=== PATIENT | male | born 1960 | race Caucasian/White ===

== ENCOUNTER 2016-05-27 11:59 | Emergency (ER) | payer BC ==
[~2016-05-27] VITALS: Ht 188 cm; Wt 99.8 kg
[~2016-05-27 11:59] MED LIST: ALPR0.5T7 PO; ASP81TEC PO; ASPI-992 PO; DEXL60CA5 PO; FENT1PAT11 TD; GABA600T2 PO; HYDR-3820 PO; HYDR8TAB PO; LORA1TAB PO; LORA2TAB PO; MAGN1TAB31 PO; NORT25CA PO; OMEP20CA12 PO; PSEU30TA18 PO; ZOLP10TA5 PO; [UNRECOGNIZED DRUG - OTHER] NS
--- OUTSIDE RECORDS SUMMARY | 2016-05-27 12:05 | XMS REPORT | Continuity of Care Document ---
Author Author [facility] Organization [facility] Address Unknown Phone Unavailable Care Team Providers Care Solder Cream Maker Name Role Phone TAVON WINTER MD PCP Insurance Providers Payer Name Policy Number Sub[id number] Catarino Freedman [facility] Self / Same As Patient Advance Directives Directive Response Recorded Date/Time Advance Directives No 01/08/16 4:47pm Health Care Power of Regulator Operator No 01/08/16 4:47pm Organ Donor No 04/29/12 9:53am Resuscitation Status Full Code 01/08/16 4:47pm Problems No problem information available. Medications Current Home Medications Medication Dose Units Route Directions Days/Qty Instructions Start Date Zolpidem Tartrate 10 Mg 10 Mg Oral Bedtime 01/08/16 Omeprazole 20 Mg 20 Mg Oral Twice A Day 01/08/16 Alprazolam 0.5 Mg 0.5 Mg Oral Every 12 Hours as needed for Anxiety 01/08/16 Hydrocodone/Acetaminophen 1 Each 1 Tab Oral Every 3-6 Hours as needed for Pain 01/08/16 Pseudoephedrine Hcl 30 Mg 30 Mg Oral Every 12 Hours as needed for Congestion 01/08/16 Hydromorphone Hcl 8 Mg 8 Mg Oral Every 6 Hours as needed for Severe Pain 01/08/16 Magnesium Carbonate/Al Hydrox 1 Each 2-4 Tab.chew Oral Four Times Daily as needed for Indigestion 01/08/16 Aspirin/Acetaminophen/Caffeine 1 Each 1-2 Tab Oral Every 6 Hours as needed for Pain 01/08/16 Past Home Medications Medication Directions Ordered Status Aspirin 81 Mg Tabec, 81 Mg Oral Daily 04/29/12 Discontinued Dexlansoprazole 60 Mg Cap., 60 Mg Oral Daily 04/29/12 Discontinued Social History Social History Problem Response Recorded Date/Time Alcohol Use Denies Use 01/08/2016 4:39pm Recreational Drug Use No 01/08/2016 4:39pm Recent Foreign Travel No 01/09/2016 10:30am Recent Infectious Disease Exposure No 01/09/2016 10:30am Hospitalization with Isolation Denies 01/09/2016 7:10pm HIV/AIDS No 01/08/2016 4:39pm Smoking Status Never a Smoker 01/08/2016 4:35pm Recent Hopitalizations No 01/08/2016 4:39pm Hospitalization with Isolation Denies 01/09/2016 7:10pm Query Response Start Date Stop Date Smoking Status Never a Smoker Hospital Discharge Instructions Patient Instructions Physician Instructions Prescription: Call to Patients Pharmacy Patient Instructions: Followup in office in one week Resume Normal Activity: Yes Drink 6-8 Glasses of Fluid/Day: Yes Driving Instructions: You May Drive Plan of Care Discharge Date 01/09/16 6:30pm Disposition 01 HOME, SELF-CARE Instructions/Education Provided Chest Pain (DC) Prescriptions See Medication Section Referrals (Unspecified) - Reason(s) for Referral: DR. JARAMILLO IN 4-6 WEEKS CALL FOR APPOINTMENT IN AM 01/10/16 [phone] Care Plan and Goals See Discharge Instructions Section Functional Status Query Response Date Recorded Patient Orientation Person Place Time Situation January 09, 2016 7:10pm Patient Orientation Person Place Time Situation Normal For Age January 09, 2016 7:10pm Comprehension Ability Understands Concepts January 09, 2016 10:30am Allergies, Adverse Reactions, Alerts No known allergies. Immunizations No immunization records. Vital Signs Acute Vital Signs Vital Response Date/Time Temperature (Fahrenheit) 96.8 degrees F (97.6 - 99.5) 01/09/2016 6:30pm Temperature (Calculated Celsius) 36.66951 degrees C (36.4 - 37.5) 01/09/2016 5:50pm Temperature Source Tympanic 01/09/2016 6:30pm Pulse Rate (adult) 74 bpm (60 - 90) 01/09/2016 6:30pm Respiratory Rate 18 bpm (12 - 24) 01/09/2016 6:30pm O2 Sat by Pulse Oximetry 96 % (88 - 100) 01/09/2016 6:30pm Blood Pressure 117/72 mm Hg 01/09/2016 6:30pm Blood Pressure Mean 87 mm Hg 01/09/2016 5:50pm Pain Numeric Pain Scale 3 01/09/2016 6:30pm Height (Feet) 6 feet 01/08/2016 4:31pm Height (Inches) 1.00 inches 01/08/2016 4:31pm Height (Calculated Centimeters) 185.470993 cm 01/08/2016 4:31pm Weight (Pounds) 215 pounds 01/08/2016 4:31pm Weight (Ounces) 8.0 oz 01/08/2016 4:31pm Weight (Calculated Grams) 89895.16 gm 01/08/2016 4:31pm Weight (Calculated Kilograms) 97.173810 kilograms 01/08/2016 4:31pm Calculated BMI 28.4 01/08/2016 4:31pm Results Laboratory Results Test Name Result Units Flags Reference Collection Date/Time Result Date/ Time Comments White Blood Count 6.1 10^3/uL 4.3-11.0 01/08/2016 4:30pm 01/08/2016 4: 57pm Red Blood Count 4.35 10^6/uL 4.35-5.85 01/08/2016 4:30pm 01/08/2016 4: 57pm Hemoglobin 14.4 G/DL 13.3-17.7 01/08/2016 4:30pm 01/08/2016 4:57pm Hematocrit 41 % 40-54 01/08/2016 4:30pm 01/08/2016 4:57pm Mean Corpuscular Volume 94 FL 80-99 01/08/2016 4:30pm 01/08/2016 4: 57pm Mean Corpuscular Hemoglobin 33 PG 25-34 01/08/2016 4:30pm 01/08/2016 4: 57pm Mean Corpuscular Hemoglobin Concent 35 G/DL 32-36 01/08/2016 4:30pm 4:57pm Red Cell Distribution Width 12.0 % 10.0-14.5 01/08/2016 4:30pm 2015 4:57pm Platelet Count 232 10^3/uL 130-400 01/08/2016 4:30pm 01/08/2016 4:57pm Mean Platelet Volume 9.5 FL 7.4-10.4 01/08/2016 4:30pm 01/08/2016 4: 57pm Neutrophils (%) (Auto) 60 % 42-75 01/08/2016 4:30pm 01/08/2016 4:57pm Lymphocytes (%) (Auto) 30 % 12-44 01/08/2016 4:30pm 01/08/2016 4:57pm Monocytes (%) (Auto) 9 % 0-12 01/08/2016 4:30pm 01/08/2016 4:57pm Eosinophils (%) (Auto) 1 % 0-10 01/08/2016 4:30pm 01/08/2016 4:57pm Basophils (%) (Auto) 0 % 0-10 01/08/2016 4:30pm 01/08/2016 4:57pm Neutrophils # (Auto) 3.6 X 10^3 1.8-7.8 01/08/2016 4:30pm 01/08/2016 4: 57pm Lymphocytes # (Auto) 1.8 X 10^3 1.0-4.0 01/08/2016 4:30pm 01/08/2016 4: 57pm Monocytes # (Auto) 0.6 X 10^3 0.0-1.0 01/08/2016 4:30pm 01/08/2016 4: 57pm Eosinophils # (Auto) 0.1 10^3/uL 0.0-0.3 01/08/2016 4:30pm 01/08/2016 4 :57pm Basophils # (Auto) 0.0 10^3/uL 0.0-0.1 01/08/2016 4:30pm 01/08/2016 4: 57pm Sodium Level 135 MMOL/L 135-145 01/08/2016 4:30pm 01/08/2016 5:18pm Potassium Level 3.7 MMOL/L 3.6-5.0 01/08/2016 4:30pm 01/08/2016 5:18pm Chloride Level 104 MMOL/L 98-107 01/08/2016 4:30pm 01/08/2016 5:18pm Carbon Dioxide Level 21 MMOL/L 21-32 01/08/2016 4:30pm 01/08/2016 5: 18pm Anion Gap 10 MMOL/L 5-14 01/08/2016 4:30pm 01/08/2016 5:18pm Blood Urea Nitrogen 9 MG/DL 7-18 01/08/2016 4:30pm 01/08/2016 5:18pm Creatinine 0.97 MG/DL 0.60-1.30 01/08/2016 4:30pm 01/08/2016 5:18pm BUN/Creatinine Ratio 9 01/08/2016 4:30pm 01/08/2016 5:18pm Estimat Glomerular Filtration Rate > 60 01/08/2016 4:30pm 2015 5:18pm GFR INTERPRETIVE DATA UNITS FOR ESTIMATED GFR (eGFR): mL/min/1.73 M2 REFERENCE RANGE FOR ESTIMATED GFR (eGFR) eGFR NORMAL eGFR >60 MODERATELY DECREASED eGFR 30-59 SEVERLY DECREASED eGFR 15-29 KIDNEY FAILURE <15 (OR DIALYSIS) Glucose Level 90 MG/DL 70-105 01/08/2016 4:30pm 01/08/2016 5:18pm Calcium Level 9.1 MG/DL 8.5-10.1 01/08/2016 4:30pm 01/08/2016 5:18pm Total Bilirubin 0.8 MG/DL 0.1-1.0 01/08/2016 4:30pm 01/08/2016 5:18pm Alkaline Phosphatase 49 U/L 40-136 01/08/2016 4:30pm 01/08/2016 5:18pm Aspartate Amino Transf (AST/SGOT) 22 U/L 5-34 01/08/2016 4:30pm 2015 5:18pm Alanine Aminotransferase (ALT/SGPT) 21 U/L 0-55 01/08/2016 4:30pm 01/07 5:18pm Total Protein 6.5 G/DL 6.4-8.2 01/08/2016 4:30pm 01/08/2016 5:18pm Albumin 4.1 G/DL 3.2-4.5 01/08/2016 4:30pm 01/08/2016 5:18pm Procedures Procedure Status Date Provider(s) Tracing only of electrocardiogram Completed 01/08/16 TAVON WINTER MD Color Doppler echocardiography Active 01/08/16 KARY JARAMILLO MD FACP FAC CCDS Encounters Encounter Location Arrival/Admit Date Discharge/Depart Date Attending Provider Discharged Inpatient (obs) [facility] 01/08/16 2:34pm 6:30pm TAVON WINTER MD
--- NOTE | 2016-05-27 12:32 | ED Psychosocial ---
General Chief Complaint: Psych/Social Disorder Stated Complaint: CHEST PAIN Nursing Triage Note: Pt c/o anxiety increasing over past couple weeks. Pt also c/o chest pain but reports it is no different than usual. Pt reports PCP has recently taken him off his pain medications and he thinks he may be having a withdrawal. Pt states he has appt w/ PCP tomorrow but states anxiety is too bad and he couldn't wait. Source: patient, other (friend) Exam Limitations: no limitations History of Present Illness Time seen by provider: 12:32 Initial Comments 55-year-old male patient presents to the emergency department with complaints of anxiety increasing over the last couple weeks. Patient has an appointment scheduled with Dr. son tomorrow as an outpatient, but states his anxiety was worse today and he couldn't wait until tomorrow. Patient does report chronic chest pain for several years has had an extensive workup at [facility] in 2009 which was negative. Patient recently underwent stress test which was negative and echocardiogram without abnormality. EGD in [address] Kimball showed positive Charles's esophagus.patient reports 2 weeks ago his been no patch was decreased from 100 g to 75 g and thinks this is causing increased anxiety. Also was seen in the emergency department on 05/12 for confusion and sedation thought to be related to his Ativan and fentanyl. Patient states he is not taking hydrocodone for approximately one month.patient denies suicidal or homicidal ideation. Timing/Duration: getting worse, other (chronic symptoms with worsening over the last 2 weeks) Associated Symptoms: anxiety, impaired concentration Allergies and Home Medications Allergies Coded Allergies: No Known Drug Allergies (Verified , 05/14/07) Home Medications 2-3 SPRAYS NS Q4H PRN PRN CONGESTION (Reported) Aspirin/Acetaminophen/Caffeine 1 Each Tablet 1 TAB PO BID PRN PRN PAIN (Reported ) Fentanyl 1 Each Patch.td72 100 MCG TD Q72H (Reported) Gabapentin 600 Mg Tablet 600 MG PO TID (Reported) Hydrocodone/Acetaminophen 1 Each Tablet 1 TAB PO EVERY 3-6 HOURS PRN PRN PAIN ( Reported) Hydroxyzine Pamoate 25 Mg Capsule #20 25 MG PO Q6H PRN PRN ANXIETY Prescribed by: OLIVER LAMAR on 05/27/16 1513 Lorazepam 2 Mg Tablet 2 MG PO Q6H PRN PRN ANXIETY (Reported) Nortriptyline HCl 25 Mg Capsule 25 MG PO HS (Reported) Omeprazole 20 Mg Capsule.dr 20 MG PO BID (Reported) Pseudoephedrine HCl 30 Mg Tablet 30-60 MG PO BID (Reported) Constitutional: No chills, No dizziness, No fever, No malaise, No weakness EENTM: no symptoms reported Respiratory: No cough, No dyspnea on exertion, No hemoptysis, No phlegm, No short of breath, No stridor, No wheezing Cardiovascular: see HPI chest pain (chronic chest pain. Feels similar to usual pain.)No edema, No palpitations, No syncope Gastrointestinal: No abdominal pain, No constipation, No diarrhea, No nausea, No vomiting Genitourinary: no symptoms reported Musculoskeletal: see HPINo back pain, No joint pain, No neck pain, other ( chronic chest wall pain) Skin: no symptoms reported Psychiatric/Neurological: See HPI AnxietyDenies Headache, Denies Numbness, Denies Paresthesia, Denies Seizure, Denies Tingling, Denies Weakness All Other Systems Reviewed Negative Unless Noted: Yes (Negative excepted noted.) Past Xiagtmj-Flornx-Lhezyg Hx Patient Social History Recent Foreign Travel: No Contact w/Someone Who Travel: No Recent Infectious Disease Expo: No Recent Hopitalizations: Yes Immunizations Up To Date Tetanus Booster (TDap): More than 5yrs Date of Influenza Vaccine: Feb 28, 2012 Seasonal Allergies Seasonal Allergies: No Surgeries HX Surgeries: Yes Surgeries: Abdominal Respiratory Hx Respiratory Disorders: No Cardiovascular Hx Cardiac Disorders: No Neurological Hx Neurological Disorders: Yes Neurological Disorders: Headaches /Migraines Reproductive System Hx Reproductive Disorders: No HIV/AIDS: No Genitourinary Hx Genitourinary Disorders: No Gastrointestinal Hx Gastrointestinal Disorders: Yes Gastrointestinal Disorders: Gastroesophageal Reflux Musculoskeletal Hx Musculoskeletal Disorders: No Musculoskeletal Disorders: Chronic Back Pain Endocrine Hx Endocrine Disorders: No HEENT HX ENT Disorders: No Loss of Vision: Denies Hearing Impairment: Denies Cancer Hx Cancer: No Psychosocial Hx Psychiatric Problems: No Behavioral Health Disorders: Anxiety Integumentary HX Skin/Integumentary Disorder: No Blood Transfusions Hx Blood Disorders: No Adverse Reaction to a Blood Tr: No Reviewed Nursing Assessment Reviewed/Agree w Nursing PMH: Yes Family Medical History Significant Family History: No Pertinent Family Hx Family Medial History: Arthritis 19 FATHER Cancer of mouth Congenital heart disease 19 FATHER Myocardial infarction 19 FATHER Neoplasm 19 FATHER 19 MOTHER Parkinson's disease 19 FATHER Psychosocial problem 19 FATHER 19 MOTHER Physical Exam Vital Signs Vital Sign - Last 12Hours 05/27/16 05/27/16 12:06 15:29 Temp 98.1 Pulse 93 Resp 28 B/P 133/106 Pulse Ox 98 O2 Delivery Room Air Capillary Refill : Less Than 3 Seconds General Appearance: WD/WN mild distress (patient appears anxious.) HEENT: PERRL/EOMI normal ENT inspection TMs normal pharynx normal Neck: supple normal inspection Respiratory: lungs clear normal breath sounds no respiratory distress Cardiovascular: normal peripheral pulses regular rate, rhythm no edema no murmur Peripheral Pulses: 2+ Dorsalis Pedis (R), 2+ Left Dors-Pedis (L), 2+ Radial Pulses (R), 2+ Radial Pulses (L) Gastrointestinal: normal bowel sounds non tender softNo distended Extremities: no pedal edema no calf tenderness normal capillary refill Neurologic/Psychiatric: guncotton packer II-XII nml as tested no motor/sensory deficits alert normal mood/affect oriented x 3 Appearance/Memory: appropriate appearance appropriate insight neat no memory impairment Behavior/Eye Contact: cooperative avoids eye contact increased rate of speech compulsive Thoughts/Hallucinations: normal thought pattern no apparent hallucination Skin: normal color warm/dry Progress/Results/Core Measures Results/Orders Lab Results My Orders Vital Signs/I&O Blood Pressure Mean: 115 ECG Initial ECG Impression Date: May 27, 2016 Initial ECG Impression Time: 12:11 Initial ECG Rate: 97 Initial ECG Rhythm: Normal Sinus Initial ECG Comparisson: Unchanged Comment Sinus rhythm. No STEMI or arrhythmia noted. ECG reviewed and discussed with Dr. Carmelo Barragan MD. Departure Communication Progress Notes Laboratory and diagnostic findings discussed with the patient. Patient states he has an appointment tomorrow with Dr. Son. Patient advised to keep this appointment and discuss findings from today's visit with him. All return precautions were discussed with the patient as described in the discharge instructions of this report. Patient voices understanding and agrees with the treatment plan. Patient case discussed with Dr. Carmelo Barragan, he agrees with the plan of care. Impression Impression: Primary Impression: Anxiety Additional Impression: Chronic chest pain Disposition: HOME, SELF-CARE Condition: Improved Departure-Patient Inst. Decision time for Depature: 14:37 Referrals: TAVON SON MD (PCP/Family) Primary Care Physician Patient Instructions: Anxiety, Adult (DC), MANAGING YOUR CHRONIC PAIN Add. Discharge Instructions: All discharge instructions reviewed with patient and/or family. Voiced understanding. Continue usual home medications. follow-up with Dr. Son tomorrow as previously scheduled for recheck. Return to the emergency department for worsened pain, headache, dizziness, changes in vision, changes in behavior, numbness, weakness, chest pain, or any other concerns. Scripts Hydroxyzine Pamoate (Vistaril)25 Mg [id number] Mg PO Q6H PRN ANXIETY #20 CAP Ref 0 Prov:OLIVER LAMAR 05/27/16 OLIVER LAMAR May 27, 2016 12:32 Urine Protein NEGATIVE NEGATIVE Urine RBC NONE /HPF Urine RBC (Auto) NEGATIVE NEGATIVE Urine Specific Cle[place] 1.005 L 1.016-1.022 Urine Squamous Epithelial Cells /HPF Urine Urobilinogen NORMAL NORMAL MG/DL Urine WBC RARE /HPF Urine pH 7 5-9 Acetaminophen Level < 10 L 10-30 UG/ML Alanine Aminotransferase (ALT/SGPT) 38 0-55 U/L Albumin 4.7 H 3.2-4.5 G/DL Alkaline Phosphatase 58 40-136 U/L Anion Gap 10 5-14 MMOL/L Aspartate Amino Transf (AST/SGOT) 34 5-34 U/L BUN/Creatinine Ratio 9 Basophils # (Auto) 0.0 0.0-0.1 10^3/uL Basophils (%) (Auto) 0 0-10 % Blood Urea Nitrogen 9 7-18 MG/DL Calcium Level 9.9 8.5-10.1 MG/DL Carbon Dioxide Level 23 21-32 MMOL/L Chloride Level 100 98-107 MMOL/L Creatinine 1.04 0.60-1.30 MG/DL Eosinophils # (Auto) 0.1 0.0-0.3 10^3/uL Eosinophils (%) (Auto) 1 0-10 % Estimat Glomerular Filtration Rate > 60 Glucose Level 104 70-105 MG/DL Hematocrit 48 40-54 % Hemoglobin 16.6 13.3-17.7 G/DL Lymphocytes # (Auto) 1.3 1.0-4.0 X 10^3 Lymphocytes (%) (Auto) 16 12-44 % Mean Corpuscular Hemoglobin 32 25-34 PG Mean Corpuscular Hemoglobin Concent 34 32-36 G/DL Mean Corpuscular Volume 94 80-99 FL Mean Platelet Volume 9.7 7.4-10.4 FL Monocytes # (Auto) 0.5 0.0-1.0 X 10^3 Monocytes (%) (Auto) 6 0-12 % Neutrophils # (Auto) 5.8 1.8-7.8 X 10^3 Neutrophils (%) (Auto) 76 H 42-75 % Platelet Count 251 130-400 10^3/uL Potassium Level 4.4 3.6-5.0 MMOL/L Red Blood Count 5.13 4.35-5.85 10^6/uL Red Cell Distribution Width 11.9 10.0-14.5 % Salicylates Level < 5.0 L 5.0-20.0 MG/DL Serum Alcohol < 10 <10 MG/DL Sodium Level 133 L 135-145 MMOL/L TSH Powell Testing 0.99 0.35-4.94 UIU/ML Total Bilirubin 1.0 0.1-1.0 MG/DL Total Protein 7.9 6.4-8.2 G/DL Troponin I < 0.30 <0.30 NG/ML White Blood Count 7.7 4.3-11.0 10^3/uL My Orders Orders-OLIVER LAMAR Troponin I (05/27/16 12:20) Ua Culture If Indicated (05/27/16 12:20) Cbc With Automated Diff (05/27/16 12:20) Comprehensive Metabolic Panel (05/27/16 12:20) Alcohol (05/27/16 12:20) Drug Screen Stat (Urine) (05/27/16 12:20) Acetaminophen (05/27/16 12:20) Salicylate (05/27/16 12:20) Ekg Tracing (05/27/16 12:20) Thyroid Analyzer (05/27/16 12:20) Monitor-Rhythm Ecg Trace Only (05/27/16 12:20) Vital Signs/I&O Vital Sign - Last 12Hours 05/27/16 12:06 Pulse 93 Resp 28 B/P 133/106 Pulse Ox 98 O2 Delivery Room Air Blood Pressure Mean: 115 Departure Impression Impression: Primary Impression: Anxiety Additional Impression: Chronic chest pain Disposition: 01 HOME, SELF-CARE Condition: Improved Departure-Patient Inst. Decision time for Depature: 14:37 Referrals: TAVON SON MD (PCP/Family) Primary Care Physician Patient Instructions: Anxiety, Adult (DC), MANAGING YOUR CHRONIC PAIN Add. Discharge Instructions: All discharge instructions reviewed with patient and/or family. Voiced understanding. Continue usual home medications. follow-up with Dr. Son tomorrow as previously scheduled for recheck. Return to the emergency department for worsened pain, headache, dizziness, changes in vision, changes in behavior, numbness, weakness, chest pain, or any other concerns. Scripts Hydroxyzine Pamoate (Vistaril)25 Mg [id number] Mg PO Q6H PRN ANXIETY #20 CAP Ref 0 Prov:OLIVER LAMAR 05/27/16 OLIVER LAMAR May 27, 2016 12:32
[2016-05-27 13:33] LABS: BASOPHILS % (AUTO) 0 % (0-10); EOSINOPHILS # (AUTO) 0.1 10^3/uL (0.0-0.3); EOSINOPHILS % (AUTO) 1 % (0-10); LYMPHOCYTES # (AUTO) 1.3 X 10^3 (1.0-4.0); LYMPHOCYTES % (AUTO) 16 % (12-44); MEAN CORPUSCULAR HEMOGLOBIN 32 PG (25-34); MEAN CORPUSCULAR HGB CONC 34 G/DL (32-36); MEAN CORPUSCULAR VOLUME 94 FL (80-99); MEAN PLATELET VOLUME 9.7 FL (7.4-10.4); MONOCYTES # (AUTO) 0.5 X 10^3 (0.0-1.0); MONOCYTES % (AUTO) 6 % (0-12); NEUTROPHILS # (AUTO) 5.8 X 10^3 (1.8-7.8); NEUTROPHILS % (AUTO) 76 % (42-75); PLATELET COUNT 251 10^3/uL (130-400); RED BLOOD COUNT 5.13 10^6/uL (4.35-5.85); RED CELL DISTRIBUTION WIDTH 11.9 % (10.0-14.5); WHITE BLOOD COUNT 7.7 10^3/uL (4.3-11.0)
[2016-05-27 13:33] LABS: BILIRUBIN,URINE NEGATIVE (NEGATIVE); KETONES,URINE 1+ (NEGATIVE); LEUKOCYTE ESTERASE ,URINE NEGATIVE (NEGATIVE); NITRITE,URINE NEGATIVE (NEGATIVE); PH,URINE 7 (5-9); PROTEIN,URINE NEGATIVE (NEGATIVE); UROBILINOGEN,URINE NORMAL (NORMAL)
[2016-05-27 13:42] LABS: WBC,URINE RARE /HPF
[2016-05-27 13:58] LABS: ACETAMINOPHEN < 10 UG/ML (10-30); ALANINE AMINOTRANSFERASE 38 U/L (0-55); ALBUMIN 4.7 G/DL (3.2-4.5); ALCOHOL < 10 MG/DL (<10); ANION GAP 10 MMOL/L (5-14); ASPARTATE AMINO TRANSFERASE 34 U/L (5-34); BLOOD UREA NITROGEN 9 MG/DL (7-18); BUN/CREATININE RATIO 9; CALCIUM 9.9 MG/DL (8.5-10.1); CARBON DIOXIDE 23 MMOL/L (21-32); CHLORIDE 100 MMOL/L (98-107); CREATININE SERUM 1.04 MG/DL (0.60-1.30); GFR ESTIMATED > 60; GLUCOSE 104 MG/DL (70-105); POTASSIUM 4.4 MMOL/L (3.6-5.0); SALICYLATE < 5.0 MG/DL (5.0-20.0); SODIUM 133 MMOL/L (135-145); TOTAL PROTEIN 7.9 G/DL (6.4-8.2)
[2016-05-27 14:06] LABS: TROPONIN I < 0.30 NG/ML (<0.30)
[2016-05-27] MEDS ORDERED: HYDR25CA PO ×2 (14:42→15:13)
[2016-05-27 15:29] VITALS: BP 116/92
[2016-09-05] MEDS ORDERED: HYDR-3731 PO (14:06)
== END 2016-05-27 15:29 | disposition home or self-care (01) ==
LOC: EDUNIT# 11:59 → ER 12:02
DX: R07.89 Other chest pain (principal); G89.29 Other chronic pain; F41.9 Anxiety disorder, unspecified; Z79.82 Long term (current) use of aspirin; Z79.899 Other long term (current) drug therapy
CPT/HCPCS: 36415; 80053; 80306; 80320; 80329; 81000; 84443; 84484; 85025; 93005; 93041

== ENCOUNTER 2016-09-03 05:40 | Outpatient (CLI) | payer BC ==
[~2016-09-03] VITALS: Ht 188 cm; Wt 103.2 kg
[~2016-09-03 05:40] MED LIST changes: +HYDR25CA PO
[2016-09-03] MEDS ORDERED: TRAM50TA2 PO (14:10)
[2016-09-03] MEDS ORDERED: BACL20TA PO (14:10)
[2016-09-03] MEDS ORDERED: TRAZ-28 PO (14:10)
[2016-09-03] MEDS ORDERED: D50KC PO (14:10)
[2016-09-03] MEDS ORDERED: MULT-517 PO (14:10)
[2016-09-03] MEDS ORDERED: KETO10TA PO (14:10)
[2016-09-03 14:17] VITALS: BP 121/81
[2016-09-05] MEDS ORDERED: HYDR-3731 PO (14:06)
== END 2016-09-03 14:33 | disposition home or self-care (01) ==
LOC: PREOP 05:40
PROVIDERS: ATTEND Surgery Pediatric Surgery
DX: Z01.818 Encounter for other preprocedural examination (principal); Z11.2 Encounter for screening for other bacterial diseases; K82.8 Other specified diseases of gallbladder
CPT/HCPCS: 87081

== ENCOUNTER 2016-09-05 10:45 | Day surgery (SDC) | payer BC ==
[~2016-09-05] VITALS: Ht 188 cm; Wt 103.2 kg
[~2016-09-05 10:45] MED LIST changes: +BACL20TA PO; +D50KC PO; +KETO10TA PO; +MULT-517 PO; +TRAM50TA2 PO; +TRAZ-28 PO
[2016-09-05] MEDS ORDERED: ceFAZolin 1 GM/NS 50 ML IVPB IV ONE ×2 (11:00)
[2016-09-05 11:08] VITALS: BP 122/80
[2016-09-05] MEDS ORDERED: ROCURONIUM 50 MG/5 ML (ZEMURON) VIAL IV ONE (11:27)
[2016-09-05] MEDS ORDERED: LIDOCAINE PF 2% 10 ML (XYLOCAINE) AMP ONE (11:27)
[2016-09-05] MEDS ORDERED: ONDANSETRON 4 MG/2 ML (SDV) Z0FRAN ONE (11:27)
[2016-09-05] MEDS ORDERED: proPOfol 200 MG/20 ML (DIPRIVAN) VIAL IV ONE ×2 (11:27→13:57)
[2016-09-05] MEDS ORDERED: LACTATED RINGERS 1,000 ML IV ONE ×2 (11:27→13:57)
[2016-09-05] MEDS ORDERED: fentaNYL INJECTION 250 MCG/5 ML AMP ONE (11:27)
[2016-09-05] MEDS ORDERED: SEVOFLURANE (ULTANE) 15 ML INHAL SOLN ONE (11:27)
[2016-09-05] MEDS ORDERED: DEXAMETHASONE PF 10 MG/ML (DECADRON) VIAL ONE (11:27)
[2016-09-05] MEDS ORDERED: MIDAZOLAM 2 MG/2 ML (VERSED) VIAL ONE (11:27)
[2016-09-05] MEDS ORDERED: FAMOTIDINE 20MG/2ML IV (PEPCID) IV ONE (11:30)
[2016-09-05] MEDS ORDERED: fentaNYL INJECTION 100 MCG/2 ML AMP IV ONE (11:30)
[2016-09-05] MEDS: LACTATED RINGERS 1,000 ML IV PRN ×2 (11:32→13:20)
[2016-09-05] MEDS ORDERED: BUP/EPI 0.5% 1:200,000 (SENSORCAINE) 30 ML VIAL ONE (12:13)
--- NOTE | 2016-09-05 12:19 | Progress Note-Pre Operative ---
Pre-Operative Progress Note H&P Reviewed The H&P was reviewed, patient examined and no changes noted. Date H&P Reviewed: Sep 05, 2016 Time H&P Reviewed: 12:00 Pre-Operative Diagnosis: chronic calculous cholecystitis JASKARAN MORENO MD Sep 05, 2016 12:19 pm
[2016-09-05] MEDS ORDERED: ONDANSETRON 4 MG/2 ML (SDV) Z0FRAN IVP PRN (12:30)
[2016-09-05] MEDS ORDERED: ACETAMINOPHEN 325 MG TABLET/CAPLET (TYLENOL) PO PRN (12:30)
[2016-09-05] MEDS ORDERED: HYDROcodone/APAP 5 MG/325 MG (LORTAB) TAB PO ONE (12:30)
[2016-09-05] MEDS ORDERED: morphine INJ 10 MG/ML 1ML (SYR OR VIAL) IVP PRN (12:30)
[2016-09-05] MEDS ORDERED: GLYCOPYRROLATE 0.2 MG/ML (ROBINUL) 2 ML VIAL ONE (13:57)
[2016-09-05] MEDS ORDERED: KETOROLAC 30 MG/ML VIAL ONE (13:57)
[2016-09-05] MEDS ORDERED: NEOSTIGMINE (BLOXIVERZ ) 1 MG/1ML 10 ML VIAL ONE (13:57)
--- NOTE | 2016-09-05 14:05 | Progress Note-Post Operative ---
Post-Operative Progess Note Surgeon (s)/[employer] Launch Commander (s) Surgeon JASKARAN MORENO MD [employer] Launch Commander: carlota sandhu [employer] Pre-Operative Diagnosis chronic calculous cholecystitis Post-Operative Diagnosis same Post-Op Procedure Note Date of Procedure: Sep 05, 2016 Name of Procedure Performed: laparoscopic cholecystectomy Description of the Procedure: laparoscopic cholecystectomy Findings of the Procedure . Anesthesia Type GET Estimated blood loss (mL): minimal Specimen(s) collected/removed gallbladder JASKARAN MORENO MD Sep 05, 2016 2:05 pm
[2016-09-05] MEDS ORDERED: HYDR-3731 PO (14:06)
--- NOTE | 2016-09-05 14:07 | Discharge Inst-Surgical ---
D/C Lap Instructions-TIFFANIE New, Converted, or Re-Newed RX: RX on Chart Follow Up Appt in 2 weeks Activity as tolerated No driving for 24 hours No driving while on pain medications Incentive Spirometry use every 2 hours while awake Regular Diet Symptoms to Report: Fever over 101 degree F, Nausea/Vomiting Infection Signs and Symptoms to report: Increased redness, Foul odor of wound, Increased drainage Bathing instructions: May shower Operative Area Clean/Dry; Keep incision clean/dry If any problems/questions: Contact your physician or go to Emergency Room JASKARAN MORENO MD Sep 05, 2016 2:07 pm
--- NOTE | 2016-09-05 14:56 | OPERATIVE REPORT ---
DATE OF SERVICE: 09/05/2016 PREOPERATIVE DIAGNOSIS: Symptomatic chronic acalculous cholecystitis. POSTOPERATIVE DIAGNOSIS: Symptomatic chronic acalculous cholecystitis. PROCEDURE: Laparoscopic cholecystectomy. SURGEON: Dr. Moreno. OIL PROGRAM COMPLIANCE SPECIALIST: Zeke Larson APRN. ANESTHESIA: General endotracheal. ESTIMATED BLOOD LOSS: Minimal. FINDINGS: Chronically inflamed gallbladder with omental adhesions to the gallbladder. DISPOSITION: Patient tolerated the procedure well. The patient is a 55-year-old male with intermittent episodes of pain in the right upper abdominal quadrant and epigastric region with radiation towards the back for the past 7 years. He reports that this was initially mild; however, this has become much more significant and severe in the past 2 years. The pain is in the right upper abdominal quadrant and is described as sharp and crampy with radiation towards the back and would occur after eating meals; however, would also occur while fasting. He has a history of gastroesophageal reflux disease and underwent a Yash fundoplication in 2002. He does not report any symptoms of reflux or regurgitation. He had an EGD done in fall which showed an intact previous wrap as well as no recurrent hiatal hernia and biopsies were negative for Charles esophagus and for H. Pylori. He continued to have pain and did have some withdrawal issues from the pain medication and is currently not on narcotic pain medications. An ultrasound was performed, which did show gallbladder wall thickening consistent with a chronic acalculous cholecystitis. The patient was brought to the operating room and placed supine on the table. After adequate IV pain anesthetic, medications and general endotracheal intubation, the abdomen was prepped and draped in standard surgical fashion. A 0.5% Marcaine with epinephrine was then used to anesthetize the overlying skin in the left upper abdominal quadrant and a small transverse incision was made using a 15 blade. An oil-soaked suture was applied to the medial aspect of the incision for retraction of Veress needle inserted. With a low opening pressure of 0 mmHg, the abdomen was insufflated to 15 mmHg pressure. The Veress needle was removed and a 5 mm trocar was placed followed by a 5 mm 45-degree angle laparoscope, visualizing the peritoneal cavity. Full quadrant abdominal x-rays were performed. There was chronic gallbladder inflammation with omental adhesions to the gallbladder consistent with a chronic acalculous cholecystitis. What was visualized of the liver, omentum, small bowel, stomach appeared normal. Under direct visualization, we then proceeded to place a supraumbilical 10 mm port after the skin and peritoneum were anesthetized using 0.5% Marcaine with epinephrine. Transverse skin incision was made using a 15 blade. In a similar manner, a right upper abdominal quadrant 5 mm port was placed. The patient was then placed in the Trendelenburg position as well as plane right side up, left side down. The fundus of the gallbladder was then retracted anteriorly and superiorly. The hepatoduodenal ligament was then opened using electrocautery and hook instrument as well as blunt dissection. The entire triangle of Calot was dissected, including the critical view of safety, identifying and dissecting up the cystic duct and artery, as well as the liver behind the proximal portion of the gallbladder. A timeout was then taken. The cystic duct and artery were clipped proximally, distally and cut with EndoShears. The gallbladder was then dissected off the liver bed using electrocautery and hook instrument with visualization of good hemostasis. The gallbladder was removed through the 10 mm port using an EndoCatch bag. The 10 mm port site fascia and peritoneum were then closed under direct visualization using a Anthony-Daniel device and an 0 Vicryl suture. The abdomen was desufflated and remaining ports removed. Incisions were closed using 4-0 Monocryl running subcuticular sutures. Wounds were then cleaned and covered with Dermabond. The patient tolerated the procedure well. We will start IV and oral pain medications as well as a clear liquid diet. Once he is tolerating clear liquids, able to take oral pain medications and ambulating well, we will discharge him home. Job ID: [id number] DocumentID: [id number] Dictated Date: 09/05/2016 13:56:24 Lathing Supervisor Date: 09/05/2016 14:55:32 Dictated By: JASKARAN MORENO MD [facility]
[2016-09-05 15:00] VITALS: BP 119/69
[2016-09-05] MEDS ORDERED: HYDROcodone/APAP 5 MG/325 MG (LORTAB) TAB ONE ×2 (15:01→15:02)
[2016-09-05 15:30] VITALS: BP 119/67
[2016-09-05 16:00] VITALS: BP 120/73
[2016-09-05 16:25] VITALS: BP 120/73
== END 2016-09-05 16:25 | disposition home or self-care (01) ==
LOC: SDC 10:45
PROVIDERS: ATTEND Surgery Pediatric Surgery
DX: K81.1 Chronic cholecystitis (principal)
CPT/HCPCS: 88304; 94664

== ENCOUNTER → 2020-11-21 | Outpatient (CLI) | payer BC ==
[~2020-11-21] MED LIST changes: +ACHYD1T PO; -D50KC PO; +ERGO50006 PO; -GABA600T2 PO; +GBPN600T PO; +HYDR-3731 PO; -HYDR-3820 PO; -OMEP20CA12 PO; +OMEP20CA18 PO; -TRAM50TA2 PO; -TRAZ-28 PO; +TRM50T PO; +TRZ50T PO
--- NOTE | 2020-11-21 13:03 | Diagnostic Imaging Report ---
PROCEDURE: CT abdomen and pelvis without contrast. TECHNIQUE: Multiple contiguous axial images were obtained through the abdomen and pelvis without the use of intravenous contrast. Auto Exposure Controls were utilized during the CT exam to meet ALARA standards for radiation dose reduction. INDICATION: Microhematuria. Correlation is made to prior CT from 09/30/2012. Imaging through the lung bases demonstrates some linear atelectasis or scarring in the right lower lobe. No discrete liver mass is identified. The liver does show somewhat lobulated contour, raising question of cirrhosis, with a prominent caudate lobe. There appear to be some potential varices in the anterior abdomen. Trace fluid in the right paracolic gutter is noted. Gallbladder is surgically absent. There is no biliary ductal dilatation. The pancreas and spleen are unremarkable. There is a small accessory spleen. No adrenal mass is identified. No renal calculi or hydronephrosis is identified. Aorta is nonaneurysmal. No definite ureteral or bladder calculi are seen. Bladder is completely decompressed. Prostate is unremarkable. IMPRESSION: 1. No evidence of urinary tract calculi or obstruction. 2. Findings suspicious for cirrhosis and perhaps mild portal hypertension. There are some varices in the anterior abdomen as well as trace ascites. No other significant abnormality is detected. Dictated by: Dictated on workstation # [id number]
== END ==
LOC: RAD 12:45
PROVIDERS: ATTEND Urology
DX: I86.4 Gastric varices (principal); R31.29 Other microscopic hematuria
CPT/HCPCS: 74176

== ENCOUNTER 2020-12-14 14:04 | Inpatient (IN) | payer BC ==
[~2020-12-14] VITALS: Ht 180 cm; Wt 120.7 kg
[2020-12-14 14:19] LABS: BASOPHILS # (AUTO) 0.1 10^3/uL (0.0-0.1); BASOPHILS % (AUTO) 1 % (0-10); EOSINOPHILS # (AUTO) 0.4 10^3/uL (0.0-0.3); EOSINOPHILS % (AUTO) 3 % (0-10); HEMATOCRIT 35 % (40-54); HEMOGLOBIN 11.7 g/dL (13.3-17.7); LYMPHOCYTES # (AUTO) 3.8 10^3/uL (1.0-4.0); LYMPHOCYTES % (AUTO) 28 % (12-44); MEAN CORPUSCULAR HEMOGLOBIN 33 pg (25-34); MEAN CORPUSCULAR HGB CONC 33 g/dL (32-36); MEAN CORPUSCULAR VOLUME 99 fL (80-99); MEAN PLATELET VOLUME 10.8 fL (9.0-12.2); MONOCYTES # (AUTO) 0.8 10^3/uL (0.0-1.0); MONOCYTES % (AUTO) 6 % (0-12); NEUTROPHILS # (AUTO) 8.7 10^3/uL (1.8-7.8); NEUTROPHILS % (AUTO) 63 % (42-75); PLATELET COUNT 236 10^3/uL (130-400); WHITE BLOOD COUNT 13.7 10^3/uL (4.3-11.0)
[2020-12-14 14:33] LABS: FIBRIN DEGRADATION PRODUCTS 1.09 UG/ML (0.00-0.49); INR 1.5 (0.8-1.4); PROTHROMBIN TIME PATIENT 18.3 SEC (12.2-14.7)
--- NOTE | 2020-12-14 14:59 | Diagnostic Imaging Report ---
PROCEDURE: CT head wo r/o stroke. TECHNIQUE: Multiple contiguous axial images were obtained through the brain without the use of intravenous contrast. Auto Exposure Controls were utilized during the CT exam to meet ALARA standards for radiation dose reduction. INDICATION: Altered level of consciousness. COMPARISON: Exam compared with head CT of 05/12/2016. FINDINGS: There is no intracranial hemorrhage, hydrocephalus, edema, mass, mass effect, nor evidence for an elevation of the intracerebral pressures. The basilar cisterns are patent. There is no sulcal effacement. The orbits, sinuses, and calvarium are nonacute. IMPRESSION: This is a stable normal CT head. Dictated by: Dictated on workstation # [id number]
[2020-12-14] MEDS ORDERED: LIDOCAINE UROJET 2% GEL 10 ML PKG TOP ONE (15:00)
[2020-12-14 15:16] LABS: ALBUMIN 3.2 GM/DL (3.2-4.5); CHLORIDE 112 MMOL/L (98-107); POTASSIUM 4.7 MMOL/L (3.6-5.0); SODIUM 145 MMOL/L (135-145)
[2020-12-14 15:17] LABS: CALCIUM 8.5 MG/DL (8.5-10.1)
[2020-12-14 15:18] LABS: GLUCOSE 115 MG/DL (70-105); TOTAL PROTEIN 7.2 GM/DL (6.4-8.2)
[2020-12-14 15:19] LABS: CARBON DIOXIDE 19 MMOL/L (21-32)
[2020-12-14 15:20] LABS: BILIRUBIN,TOTAL 1.1 MG/DL (0.1-1.0)
[2020-12-14 15:22] LABS: ALKALINE PHOSPHATASE 75 U/L (40-136); CREATININE SERUM 0.92 MG/DL (0.60-1.30); GFR ESTIMATED 84
--- NOTE | 2020-12-14 15:22 | Diagnostic Imaging Report ---
INDICATION: Cerebrovascular accident Portable AP view of the chest is obtained with comparison made study of 05/12/2016. There is been further volume loss in the right lung with elevation of the right hemidiaphragm. Overall heart size is at the upper limits of normal. Pulmonary vascularity is unremarkable. There is no evidence of pneumothorax or focal consolidation. IMPRESSION: Volume loss in the right lung with elevated right hemidiaphragm. Diaphragmatic paralysis is not excluded. No other definite acute abnormality is identified. Dictated by: Dictated on workstation # [id number]
[2020-12-14 15:23] LABS: BUN/CREATININE RATIO 26
[2020-12-14 15:25] LABS: ALANINE AMINOTRANSFERASE 25 U/L (0-55)
[2020-12-14] MEDS ORDERED: HOLD METFORMIN - RECEIVED CONTRAST 20 ML VIAL IV SCH (16:00)
[2020-12-14] MEDS ORDERED: IOHEXOL 350 MG/ML 100 ML (OMNIPAQUE 350) VIAL IV ONE (16:00)
[2020-12-14 16:04] LABS: BILIRUBIN,URINE NEGATIVE (NEGATIVE); CLARITY,URINE CLEAR; COLOR,URINE YELLOW; GLUCOSE, URINE (UA) NEGATIVE (NEGATIVE); KETONES,URINE TRACE (NEGATIVE); LEUKOCYTE ESTERASE ,URINE NEGATIVE (NEGATIVE); NITRITE,URINE NEGATIVE (NEGATIVE); PH,URINE 6.5 (5-9); PROTEIN,URINE NEGATIVE (NEGATIVE)
[2020-12-14 16:07] LABS: ALBUMIN 3.3 GM/DL (3.2-4.5)
[2020-12-14 16:08] LABS: AMMONIA 136 UMOL/L (11-32); CHLORIDE 111 MMOL/L (98-107); POTASSIUM 5.2 MMOL/L (3.6-5.0); SODIUM 142 MMOL/L (135-145)
[2020-12-14 16:09] LABS: CALCIUM 8.4 MG/DL (8.5-10.1)
[2020-12-14 16:10] LABS: GLUCOSE 127 MG/DL (70-105); TOTAL PROTEIN 7.6 GM/DL (6.4-8.2)
[2020-12-14 16:11] LABS: CARBON DIOXIDE 17 MMOL/L (21-32)
[2020-12-14 16:12] LABS: BILIRUBIN,TOTAL 1.1 MG/DL (0.1-1.0)
[2020-12-14 16:13] LABS: ALKALINE PHOSPHATASE 74 U/L (40-136)
[2020-12-14 16:14] LABS: CREATININE SERUM 0.95 MG/DL (0.60-1.30); GFR ESTIMATED 81
[2020-12-14 16:15] LABS: BUN/CREATININE RATIO 25
[2020-12-14 16:17] LABS: ALANINE AMINOTRANSFERASE 26 U/L (0-55)
[2020-12-14 16:19] LABS: BACTERIA,URINE NEGATIVE /HPF
[2020-12-14] MEDS ORDERED: LORazepam INJ 2 MG/ML (ATIVAN) VIAL ONE ×2 (16:40→19:14)
[2020-12-14 17:05] LABS: BASOPHILS # (AUTO) 0.1 10^3/uL (0.0-0.1); BASOPHILS % (AUTO) 1 % (0-10); EOSINOPHILS # (AUTO) 0.1 10^3/uL (0.0-0.3); EOSINOPHILS % (AUTO) 1 % (0-10); HEMATOCRIT 33 % (40-54); HEMOGLOBIN 11.3 g/dL (13.3-17.7); LYMPHOCYTES # (AUTO) 3.6 10^3/uL (1.0-4.0); LYMPHOCYTES % (AUTO) 27 % (12-44); MEAN CORPUSCULAR HEMOGLOBIN 33 pg (25-34); MEAN CORPUSCULAR HGB CONC 34 g/dL (32-36); MEAN CORPUSCULAR VOLUME 98 fL (80-99); MEAN PLATELET VOLUME 11.2 fL (9.0-12.2); MONOCYTES # (AUTO) 0.7 10^3/uL (0.0-1.0); MONOCYTES % (AUTO) 5 % (0-12); NEUTROPHILS # (AUTO) 9.2 10^3/uL (1.8-7.8); NEUTROPHILS % (AUTO) 67 % (42-75); PLATELET COUNT 216 10^3/uL (130-400); WHITE BLOOD COUNT 13.7 10^3/uL (4.3-11.0)
[2020-12-14 17:28] LABS: FIBRIN DEGRADATION PRODUCTS 1.73 UG/ML (0.00-0.49); INR 1.5 (0.8-1.4); PROTHROMBIN TIME PATIENT 18.3 SEC (12.2-14.7)
--- NOTE | 2020-12-14 17:42 | Diagnostic Imaging Report ---
PROCEDURE: CT abdomen and pelvis with contrast. TECHNIQUE: Multiple contiguous axial images were obtained through the abdomen and pelvis after administration of intravenous contrast. Auto Exposure Controls were utilized during the CT exam to meet ALARA standards for radiation dose reduction. All CT scans use one or more of the following dose optimizing techniques: automated exposure control, MA and/or KvP adjustment based on patient size and exam type or iterative reconstruction. DATE: December 14, 2020. COMPARISON: CT abdomen and pelvis November 21, 2020. INDICATION: 60-year-old male, abdominal pain, bloody stools. FINDINGS: There are linear opacities in the right lower lobe consistent with atelectasis. The heart is not enlarged. There is no pericardial effusion. The liver is unremarkable in size and contour. There is no identified focal liver lesion. The main, right and left portal veins are patent. The gallbladder is surgically absent. There is no intrahepatic or extrahepatic bile duct dilation. The main pancreatic duct is not abnormally dilated. Unremarkable appearance of the pancreatic parenchyma. There is accessory splenule. The spleen is normal in size. The adrenal glands are unremarkable. Unremarkable appearance of the renal parenchyma. The urinary collecting systems are not distended. There is a Chiu catheter in the urinary bladder. The urinary bladder is relatively collapsed. The intestinal tract is not distended. There is no evidence of acute appendicitis. There is no free intraperitoneal air. There is no drainable fluid collection. There is peritoneal strandiness without sizable volume ascites. There are atherosclerotic calcifications. There is no identified abnormally enlarged lymph node in the abdomen or pelvis meeting CT size criteria for adenopathy. There is no identified acute bony abnormality. IMPRESSION: CT abdomen and pelvis: 1. Peritoneal strandiness without sizable volume ascites. This is nonspecific. 2. No identified acute abnormality in the abdomen or pelvis. Dictated by: Dictated on workstation # [id number]
--- NOTE | 2020-12-14 17:53 | Diagnostic Imaging Report ---
Procedure: CT angiography of the head and CT angiography of the neck with and without contrast. Technique: Contiguous noncontrast images were obtained from the skull base through the vertex. After intravenous contrast administration, helical CT angiography of the neck was performed. Source data was reformatted into 3D MIP projections. Delayed post contrast acquisition was also obtained. Auto Exposure Controls were utilized during the CT exam to meet ALARA standards for radiation dose reduction. Date: December 14, 2020. Indication: 60-year-old male, stroke. Comparison: CT head without contrast December 14, 2020. Findings: The left common carotid artery is patent. There is calcified plaque at the left carotid bifurcation. The left internal carotid artery is patent. The left middle cerebral artery is patent. The left anterior cerebral artery is patent. There is a patent anterior communicating artery. The right anterior cerebral artery is patent. The right middle cerebral artery is patent. The right internal carotid artery is patent. There is calcified plaque involving the proximal segment of the right internal carotid artery. The right common carotid artery is patent. The left vertebral artery is conventional in origin. The left vertebral artery is patent. The basilar artery is patent. The right and left posterior cerebral arteries are patent. There is a patent left posterior communicating artery. The right posterior cerebral artery is patent. The left posterior cerebral artery is patent. The right vertebral artery is patent and conventional in origin. The visualized portions of the lungs are clear. There is no abnormal intracranial enhancement. Impression: Patent arterial head and neck vasculature without identified high-grade stenosis, occlusion, aneurysm or dissection. Dictated by: Dictated on workstation # [id number]
--- NOTE | 2020-12-14 18:35 | ED Neurological Problem ---
General Chief Complaint: Neuro-Stroke Like Symptoms Stated Complaint: STROKE Nursing Triage Note: PT PRESENTS TO ROOM FIVE VIA EMS FROM HOME, FAMILY CONTACTED EMS WITH CONCERNS OF ALTERED LOC, LAST KNOWN WELL TIME WAS NOON YESTERDAY. EMS NOTED MILD L SIDED FACIAL DROOP AND L SIDED ARM WEAKNESS. PT WAS REPORTED BY FAMILY TO HAVE BRIGHT RED STOOL RECENTLY. PT IS NOT ALRET TO PLACE OR HIS AGE Source: patient, family, EMS, old records Exam Limitations: no limitations History of Present Illness Date Seen by Provider: Dec 14, 2020 Time Seen by Provider: 14:06 Initial Comments This a 60-year-old gentleman presents to the emergency room via [facility] with concerns for possible stroke. EMS reported last known well time was somewhere around noon yesterday, greater than 24 hours ago. Family noticed his behavior was odd and progressed throughout the day today until he was no longer making sense or following instructions. EMS reported a possible left-sided facial droop and left sided arm weakness. However, these specific focal deficits were not noted. He does have difficulty articulating speech and his speech is generally nonsensical. He answers some questions appropriately but much of the time his responses do not make sense. He is afebrile. An accurate NIH could not be obtained as patient would not or could not follow instructions to score it appropriately. He did seem to move all 4 extremities but not on command. Stroke activation was not paged as last known well time was greater than 24 hours ago. Family reports a remote history of prescription drug abuse but that was many years ago and they have no suspicion of current drug or alcohol use. They report he had been doing well in life generally recently. They report history of prostate problems, fatty liver disease, and diabetes. Blood sugar was 109 for EMS. Family also reports that he has had some blood in his stools recently and has complained of abdominal discomfort. Allergies and Home Medications Allergies Coded Allergies: No Known Drug Allergies (Unverified , 09/03/16) Home Medications Aspirin/Acetaminophen/Caffeine 1 Each Tablet, 1 TAB PO BID PRN for PAIN, (Reported) Baclofen 20 Mg Tablet, 10 MG PO TID PRN for PAIN-MODERATE, (Reported) Ergocalciferol (Vitamin D2) 50,000 Unit Capsule, 50,000 UNIT PO WEEK, (Reported) Gabapentin 600 Mg Tablet, 600 MG PO TID, (Reported) Hydrocodone/Acetaminophen 1 Each Tablet, 1 EACH PO Q4H Prescribed by: JASKARAN MORENO on 09/05/16 1406 Ketorolac Tromethamine 10 Mg Tablet, 10 MG PO TID, (Reported) Multivitamin 1 Each Tablet, 1 EACH PO DAILY, (Reported) Omeprazole 20 Mg Capsule.dr, 20 MG PO BID, (Reported) Pseudoephedrine HCl 30 Mg Tablet, 30-60 MG PO BID, (Reported) Tramadol HCl 50 Mg Tablet, 50 MG PO Q4H PRN for PAIN-MODERATE, (Reported) Trazodone HCl 50 Mg Tablet, 50 MG PO HS, (Reported) [4-Way Nasal [place]] , 2-3 SPRAYS NS Q4H PRN for CONGESTION, (Reported) Patient Home Medication List Home Medication List Reviewed: Yes Review of Systems Review of Systems Constitutional: no symptoms reported Eyes: No Symptoms Reported Ears, Nose, Mouth, Throat: no symptoms reported Respiratory: no symptoms reported Cardiovascular: no symptoms reported Past Kzhzqil-Qolwvb-Vhuvjx Hx Patient Social History Tobacco Use?: No Alcohol Use?: No Immunizations Up To Date Tetanus Booster (TDap): More than 5yrs Seasonal Allergies Seasonal Allergies: No Past Medical History Surgeries: Yes Abdominal Respiratory: No Currently Using CPAP: No Currently Using BIPAP: No Neurological: Yes Headaches /Migraines Reproductive Disorders: No Sexually Transmitted Disease: No HIV/AIDS: No Genitourinary: Yes Benign Prostatic Hyperpl Gastrointestinal: Yes Gastroesophageal Reflux, Liver Disease/Jaundice (Fatty liver disease) Musculoskeletal: Yes Chronic Back Pain Endocrine: Yes Diabetes, Non-Insulin dep Loss of Vision: Denies Hearing Impairment: Denies Cancer: No Did You Recieve Any Treatments: No Psychosocial: Yes Anxiety Adverse Reaction/Blood Tranf: No Family Medical History Reviewed Nursing Family Hx Arthritis 19 FATHER Cancer of mouth Congenital heart disease 19 FATHER Myocardial infarction 19 FATHER Neoplasm 19 FATHER 19 MOTHER Parkinson's disease 19 FATHER Psychosocial problem 19 FATHER 19 MOTHER No Pertinent Family Hx Physical Exam Vital Signs Vital Signs - First Documented 12/14/20 14:04 Temp 36.4 Pulse 105 Resp 22 B/P (MAP) 112/80 (91) Pulse Ox 96 O2 Delivery Room Air Capillary Refill : Less Than 3 Seconds Height, Weight, BMI Height: 6'2.00" Weight: 227lbs. 8.0oz. 103.052237xl; 36.00 BMI Method:Stated General Appearance: WD/WN, mild distress (Confused and mildly agitated), obese HEENT: PERRL/EOMI, normal ENT inspection Neck: normal inspection Respiratory: lungs clear, normal breath sounds, no respiratory distress Cardiovascular: regular rate, rhythm, no edema, no murmur Gastrointestinal: normal bowel sounds, non tender, soft Extremities: normal inspection, no pedal edema Neurologic/Psychiatric: other (Patient does not follow commands. He does seem to be able to move all 4 extremities. No facial droop is noted. Accurate NIH cannot be obtained as patient cannot follow instructions. He is able to answer some questions but many of his answers are nonsensical.) Skin: normal color, warm/dry Progress/Results/Core Measures Results/Orders Lab Results Laboratory Tests Test 12/14/20 14:14 12/14/20 14:49 12/14/20 15:00 12/14/20 15:42 Range/Units White Blood Count 13.7 H 4.3-11.0 10^3/uL Red Blood Count 3.56 L 4.30-5.52 10^6/uL Hemoglobin 11.7 L 13.3-17.7 g/dL Hematocrit 35 L 40-54 % Mean Corpuscular Volume 99 80-99 fL Mean Corpuscular Hemoglobin 33 25-34 pg Mean Corpuscular Hemoglobin Concent 33 32-36 g/dL Red Cell Distribution Width 16.6 H 10.0-14.5 % Platelet Count 236 130-400 10^3/uL Mean Platelet Volume 10.8 9.0-12.2 fL Immature Granulocyte % (Auto) 0 % Neutrophils (%) (Auto) 63 42-75 % Lymphocytes (%) (Auto) 28 12-44 % Monocytes (%) (Auto) 6 0-12 % Eosinophils (%) (Auto) 3 0-10 % Basophils (%) (Auto) 1 0-10 % Neutrophils # (Auto) 8.7 H 1.8-7.8 10^3/uL Lymphocytes # (Auto) 3.8 1.0-4.0 10^3/uL Monocytes # (Auto) 0.8 0.0-1.0 10^3/uL Eosinophils # (Auto) 0.4 H 0.0-0.3 10^3/uL Basophils # (Auto) 0.1 0.0-0.1 10^3/uL Immature Granulocyte # (Auto) 0.1 0.0-0.1 10^3/uL Prothrombin Time 18.3 H 12.2-14.7 SEC INR Comment 1.5 H 0.8-1.4 Activated Partial Thromboplast Time 32 24-35 SEC D-Dimer 1.09 H 0.00-0.49 UG/ML Sodium Level 145 135-145 MMOL/L Potassium Level 4.7 3.6-5.0 MMOL/L Chloride Level 112 H 98-107 MMOL/L Carbon Dioxide Level 19 L 21-32 MMOL/L Anion Gap 14 5-14 MMOL/L Blood Urea Nitrogen 24 H 7-18 MG/DL Creatinine 0.92 0.60-1.30 MG/DL Estimat Glomerular Filtration Rate 84 BUN/Creatinine Ratio 26 Glucose Level 115 H 70-105 MG/DL Calcium Level 8.5 8.5-10.1 MG/DL Corrected Calcium 9.1 8.5-10.1 MG/DL Total Bilirubin 1.1 H 0.1-1.0 MG/DL Aspartate Amino Transf (AST/SGOT) 38 H 5-34 U/L Alanine Aminotransferase (ALT/SGPT) 25 0-55 U/L Alkaline Phosphatase 75 40-136 U/L Troponin I < 0.028 <0.028 NG/ML Total Protein 7.2 6.4-8.2 GM/DL Albumin 3.2 3.2-4.5 GM/DL Urine Opiates Screen NEGATIVE NEGATIVE Urine Oxycodone Screen NEGATIVE NEGATIVE Urine Methadone Screen NEGATIVE NEGATIVE Urine Propoxyphene Screen NEGATIVE NEGATIVE Urine Barbiturates Screen NEGATIVE NEGATIVE Ur Tricyclic Antidepressants Screen POSITIVE H NEGATIVE Urine Phencyclidine Screen NEGATIVE NEGATIVE Urine Amphetamines Screen NEGATIVE NEGATIVE Urine Methamphetamines Screen NEGATIVE NEGATIVE Urine Benzodiazepines Screen NEGATIVE NEGATIVE Urine Cocaine Screen NEGATIVE NEGATIVE Urine Cannabinoids Screen NEGATIVE NEGATIVE TSH [place] Testing 2.84 0.35-4.94 UIU/ML Salicylates Level < 5.0 L 5.0-20.0 MG/DL Acetaminophen Level < 10 L 10-30 UG/ML Serum Alcohol < 10 <10 MG/DL Test 12/14/20 15:47 12/14/20 15:58 12/14/20 17:00 Range/Units Sodium Level 142 135-145 MMOL/L Potassium Level 5.2 H 3.6-5.0 MMOL/L Chloride Level 111 H 98-107 MMOL/L Carbon Dioxide Level 17 L 21-32 MMOL/L Anion Gap 14 5-14 MMOL/L Blood Urea Nitrogen 24 H 7-18 MG/DL Creatinine 0.95 0.60-1.30 MG/DL Estimat Glomerular Filtration Rate 81 BUN/Creatinine Ratio 25 Glucose Level 127 H 70-105 MG/DL Calcium Level 8.4 L 8.5-10.1 MG/DL Corrected Calcium 9.0 8.5-10.1 MG/DL Total Bilirubin 1.1 H 0.1-1.0 MG/DL Aspartate Amino Transf (AST/SGOT) 45 H 5-34 U/L Alanine Aminotransferase (ALT/SGPT) 26 0-55 U/L Alkaline Phosphatase 74 40-136 U/L Ammonia 136 H 11-32 UMOL/L Troponin I < 0.028 <0.028 NG/ML Total Protein 7.6 6.4-8.2 GM/DL Albumin 3.3 3.2-4.5 GM/DL Urine Color YELLOW Urine Clarity CLEAR Urine pH 6.5 5-9 Urine Specific [employer] 1.010 L 1.016-1.022 Urine Protein NEGATIVE NEGATIVE Urine Glucose (UA) NEGATIVE NEGATIVE Urine Ketones TRACE H NEGATIVE Urine Nitrite NEGATIVE NEGATIVE Urine Bilirubin NEGATIVE NEGATIVE Urine Urobilinogen 0.2 < = 1.0 MG/DL Urine Leukocyte Esterase NEGATIVE NEGATIVE Urine RBC (Auto) 2+ H NEGATIVE Urine RBC 5-10 H /HPF Urine WBC NONE /HPF Urine Squamous Epithelial Cells NONE /HPF Urine Crystals NONE /LPF Urine Bacteria NEGATIVE /HPF Urine Casts NONE /LPF Urine Mucus NEGATIVE /LPF Urine Culture Indicated NO White Blood Count 13.7 H 4.3-11.0 10^3/uL Red Blood Count 3.42 L 4.30-5.52 10^6/uL Hemoglobin 11.3 L 13.3-17.7 g/dL Hematocrit 33 L 40-54 % Mean Corpuscular Volume 98 80-99 fL Mean Corpuscular Hemoglobin 33 25-34 pg Mean Corpuscular Hemoglobin Concent 34 32-36 g/dL Red Cell Distribution Width 16.4 H 10.0-14.5 % Platelet Count 216 130-400 10^3/uL Mean Platelet Volume 11.2 9.0-12.2 fL Immature Granulocyte % (Auto) 0 % Neutrophils (%) (Auto) 67 42-75 % Lymphocytes (%) (Auto) 27 12-44 % Monocytes (%) (Auto) 5 0-12 % Eosinophils (%) (Auto) 1 0-10 % Basophils (%) (Auto) 1 0-10 % Neutrophils # (Auto) 9.2 H 1.8-7.8 10^3/uL Lymphocytes # (Auto) 3.6 1.0-4.0 10^3/uL Monocytes # (Auto) 0.7 0.0-1.0 10^3/uL Eosinophils # (Auto) 0.1 0.0-0.3 10^3/uL Basophils # (Auto) 0.1 0.0-0.1 10^3/uL Immature Granulocyte # (Auto) 0.1 0.0-0.1 10^3/uL Prothrombin Time 18.3 H 12.2-14.7 SEC INR Comment 1.5 H 0.8-1.4 D-Dimer 1.73 H 0.00-0.49 UG/ML My Orders Orders - KIERAN ESPARZA MD Cbc With Automated Diff (12/14/20 14:10) Protime With Inr (12/14/20 14:10) Partial Thromboplastin Time (12/14/20 14:10) Comprehensive Metabolic Panel (12/14/20 14:10) Fibrin Degradation Products (12/14/20 14:10) Troponin I (12/14/20 14:10) Ua Culture If Indicated (12/14/20 14:10) Chest 1 View, Ap/Pa Only (12/14/20 14:10) Catheter(Urinary) Insert & Ass 03,15 (12/14/20 14:10) Ekg Tracing (12/14/20 14:10) Nothing By Mouth (12/14/20 Lunch) Accucheck Stat ONCE (12/14/20 14:10) Ed Iv/Invasive Line Start (12/14/20 14:10) Ed Iv/Invasive Line Start (12/14/20 14:10) Vital Signs Stroke Patient Q15M (12/14/20 14:10) Ct Head Wo-R/O Stroke (12/14/20 14:10) O2 (12/14/20 14:10) Intake & Output 06,14,22 (12/14/20 14:10) Monitor-Rhythm Ecg Trace Only (12/14/20 14:10) Dysphagia Screening Tool (12/14/20 14:10) Lipid Panel (12/15/20 06:00) Fecal Occult Bedside (12/14/20 14:10) Lidocaine 2% (Urojet) (Xylocaine Urojet) (12/14/20 15:00) Ammonia (12/14/20 15:37) Ct Angio Head/Neck (12/14/20 15:37) Ct Abdomen/Pelvis W (12/14/20 15:39) Cbc With Automated Diff (12/14/20 15:46) Protime With Inr (12/14/20 15:46) Comprehensive Metabolic Panel (12/14/20 15:46) Fibrin Degradation Products (12/14/20 15:46) Troponin I (12/14/20 15:46) Accucheck Stat ONCE (12/14/20 15:46) Ed Iv/Invasive Line Start (12/14/20 15:46) Ed Iv/Invasive Line Start (12/14/20 15:46) Vital Signs Stroke Patient Q15M (12/14/20 15:46) O2 (12/14/20 15:46) Intake & Output 06,14,22 (12/14/20 15:46) Dysphagia Screening Tool (12/14/20 15:46) Post Thrombolytic Adminstratio (12/14/20 15:46) Iohexol Injection (Omnipaque 350 Mg/Ml 1 (12/14/20 16:00) Received Contrast (Hold Metformin- Contr (12/14/20 16:00) Lorazepam Injection (Ativan Injection) (12/14/20 16:40) Acetaminophen (12/14/20 18:19) Alcohol (12/14/20 18:19) Drug Screen Stat (Urine) (12/14/20 18:19) Salicylate (12/14/20 18:19) Thyroid Analyzer (12/14/20 18:19) Ns Iv 1000 Ml (Sodium Chloride 0.9%) (12/14/20 18:45) Medications Given in ED Current Medications Medications Dose Ordered Sig/Kathleen Route Start Time Stop Time Status Last Admin Dose Admin Iohexol 100 ml ONCE ONCE IV 12/14/20 16:00 12/14/20 16:01 DC 12/14/20 17:26 75 ML Lidocaine HCl 10 ml ONCE ONCE TOP 12/14/20 15:00 12/14/20 15:01 DC 12/14/20 15:47 10 ML Lorazepam 2 mg STK-MED ONCE .ROUTE 12/14/20 16:40 12/14/20 16:44 DC 12/14/20 16:45 0.5 MG Vital Signs/I&O 12/14/20 14:04 Temp 36.4 Pulse 105 Resp 22 B/P (MAP) 112/80 (91) Pulse Ox 96 O2 Delivery Room Air Blood Pressure Mean: 91 FSBG Bedside Testing Finger Stick Blood Glucose: 114 Progress Progress Note : Progress Note Stroke work-up was pursued. Initial CT was unremarkable. Blood sugar was normal. Noncontrast CT was followed by CT angiogram which showed no large vessel occlusion or other acute abnormalities. He was noted to have an INR of 1.5 with recent history of rectal bleeding. This in conjunction with the family's comments about fatty liver disease prompted evaluation of an ammonia level which was markedly elevated. Hepatic encephalopathy is the likely primary cause of his symptoms. Patient also seemed to be agitated and seemed to have some pelvic discomfort. Chiu catheter could not be passed, presumably due to his prostate problems. A Urojet pretreatment was administered and a 14 [place] coud catheter was placed. This yielded about 500 mL of urine. Some urinary obstruction may also be contributing to his agitation and altered mental status. Ultimately patient did need to receive Ativan 0.5 mg to treat his agitation. Review of chart notes a colonoscopy about 10 years ago showing no major abnormalities. Family reports he was to be referred to a specialist in [place] for liver disease in the near future. Patient sees Dr. Lantigua for his urinary issues. Initial ECG Impression Date: Dec 14, 2020 Initial ECG Impression Time: 14:08 Initial ECG Rate: 104 Initial ECG Rhythm: S.Tach Comment Sinus tachycardia with no ST elevation or depression. Right bundle branch block. No axis deviation. Diagnostic Imaging Diagonstic Imaging: Xray Plain Films/CT/US/NM/MRI: chest Comments NAME: CATARINO OSPINA MED REC#: [id number] PT STATUS: REG ER : 1960 PHYSICIAN: KIERAN ESPARZA MD ADMIT DATE: 12/14/20/ER Draft Date of Exam:12/14/20 CHEST 1 VIEW, AP/PA ONLY INDICATION: Cerebrovascular accident Portable AP view of the chest is obtained with comparison made study of 05/12/2016. There is been further volume loss in the right lung with elevation of the right hemidiaphragm. Overall heart size is at the upper limits of normal. Pulmonary vascularity is unremarkable. There is no evidence of pneumothorax or focal consolidation. IMPRESSION: Volume loss in the right lung with elevated right hemidiaphragm. Diaphragmatic paralysis is not excluded. No other definite acute abnormality is identified. Dictated on workstation # [id number] Dict: 12/14/20 1511 Trans: 12/14/20 1522 ACB Interpreted by: BRADY NAILS MD Diagonstic Imaging: CT Plain Films/CT/US/NM/MRI: head Comments NAME: CATARINO OSPINA MED REC#: [id number] PT STATUS: REG ER : 1960 PHYSICIAN: KIERAN ESPARZA MD ADMIT DATE: 12/14/20/ER Draft Date of Exam:12/14/20 CT HEAD WO-R/O STROKE PROCEDURE: CT head wo r/o stroke. TECHNIQUE: Multiple contiguous axial images were obtained through the brain without the use of intravenous contrast. Auto Exposure Controls were utilized during the CT exam to meet ALARA standards for radiation dose reduction. INDICATION: Altered level of consciousness. COMPARISON: Exam compared with head CT of 05/12/2016. FINDINGS: There is no intracranial hemorrhage, hydrocephalus, edema, mass, mass effect, nor evidence for an elevation of the intracerebral pressures. The basilar cisterns are patent. There is no sulcal effacement. The orbits, sinuses, and calvarium are nonacute. IMPRESSION: This is a stable normal CT head. Dictated on workstation # [id number] Dict: 12/14/20 1454 Trans: 12/14/20 1459 [id number] [id number] Interpreted by: BRADY NAQVI Diagonstic Imaging: CT Plain Films/CT/US/NM/MRI: other (Angiogram head and neck) Comments NAME: CATARINO OSPINA MED REC#: [id number] PT STATUS: REG ER : 1960 PHYSICIAN: KIERAN ESPARZA MD ADMIT DATE: 12/14/20/ER Signed Date of Exam:12/14/20 CT ANGIO HEAD/NECK Procedure: CT angiography of the head and CT angiography of the neck with and without contrast. Technique: Contiguous noncontrast images were obtained from the skull base through the vertex. After intravenous contrast administration, helical CT angiography of the neck was performed. Source data was reformatted into 3D MIP projections. Delayed post contrast acquisition was also obtained. Auto Exposure Controls were utilized during the CT exam to meet ALARA standards for radiation dose reduction. Date: December 14, 2020. Indication: 60-year-old male, stroke. Comparison: CT head without contrast December 14, 2020. Findings: The left common carotid artery is patent. There is calcified plaque at the left carotid bifurcation. The left internal carotid artery is patent. The left middle cerebral artery is patent. The left anterior cerebral artery is patent. There is a patent anterior communicating artery. The right anterior cerebral artery is patent. The right middle cerebral artery is patent. The right internal carotid artery is patent. There is calcified plaque involving the proximal segment of the right internal carotid artery. The right common carotid artery is patent. The left vertebral artery is conventional in origin. The left vertebral artery is patent. The basilar artery is patent. The right and left posterior cerebral arteries are patent. There is a patent left posterior communicating artery. The right posterior cerebral artery is patent. The left posterior cerebral artery is patent. The right vertebral artery is patent and conventional in origin. The visualized portions of the lungs are clear. There is no abnormal intracranial enhancement. Impression: Patent arterial head and neck vasculature without identified high-grade stenosis, occlusion, aneurysm or dissection. Dictated by: Dictated on workstation # [id number] Dict: 12/14/201741 Trans: 12/14/201831 [facility] [id number] Interpreted by: SANDRA CRONIN MD Electronically signed by: SANDRA CRONIN MD 12/14/201831 Diagonstic Imaging: CT Plain Films/CT/US/NM/MRI: abdomen, pelvis Comments NAME: ANAICATARINO [facility] REC#: [id number] PT STATUS: REG ER : 1960 PHYSICIAN: KIERAN ESPARZA MD ADMIT DATE: 12/14/20/ER Signed Date of Exam:12/14/20 CT ABDOMEN/PELVIS W PROCEDURE: CT abdomen and pelvis with contrast. TECHNIQUE: Multiple contiguous axial images were obtained through the abdomen and pelvis after administration of intravenous contrast. Auto Exposure Controls were utilized during the CT exam to meet ALARA standards for radiation dose reduction. All CT scans use one or more of the following dose optimizing techniques: automated exposure control, MA and/or KvP adjustment based on patient size and exam type or iterative reconstruction. DATE: December 14, 2020. COMPARISON: CT abdomen and pelvis November 21, 2020. INDICATION: 60-year-old male, abdominal pain, bloody stools. FINDINGS: There are linear opacities in the right lower lobe consistent with atelectasis. The heart is not enlarged. There is no pericardial effusion. The liver is unremarkable in size and contour. There is no identified focal liver lesion. The main, right and left portal veins are patent. The gallbladder is surgically absent. There is no intrahepatic or extrahepatic bile duct dilation. The main pancreatic duct is not abnormally dilated. Unremarkable appearance of the pancreatic parenchyma. There is accessory splenule. The spleen is normal in size. The adrenal glands are unremarkable. Unremarkable appearance of the renal parenchyma. The urinary collecting systems are not distended. There is a Chiu catheter in the urinary bladder. The urinary bladder is relatively collapsed. The intestinal tract is not distended. There is no evidence of acute appendicitis. There is no free intraperitoneal air. There is no drainable fluid collection. There is peritoneal strandiness without sizable volume ascites. There are atherosclerotic calcifications. There is no identified abnormally enlarged lymph node in the abdomen or pelvis meeting CT size criteria for adenopathy. There is no identified acute bony abnormality. IMPRESSION: CT abdomen and pelvis: 1. Peritoneal strandiness without sizable volume ascites. This is nonspecific. 2. No identified acute abnormality in the abdomen or pelvis. Dictated by: Dictated on workstation # [id number] Dict: 12/14/20 1733 Trans: 12/14/20 1832 [facility] [id number] Interpreted by: SANDRA CRONIN MD Electronically signed by: SANDRA CRONIN MD 12/14/20 1832 Departure Communication (Admissions) Time/Spoke to Admitting Phy: 18:30 Dr. Damian Impression Primary Impression: Hepatic encephalopathy Additional Impressions: Urinary retention Agitation Hematochezia Disposition: ADMITTED INPATIENT Condition: Stable Admissions Decision to Admit Reason: Admit from ER (General) Decision to Admit/Date: Dec 14, 2020 Time/Decision to Admit Time: 14:10 Departure-Patient Inst. Referrals: TAVON WINTER MD (PCP/Family) Primary Care Physician KIERAN ESPARZA MD Dec 14, 2020 18:35
[2020-12-14] MEDS ORDERED: NS IV 1000 ML 1,000 ML IV SCH (18:45)
[2020-12-14 18:51] LABS: SALICYLATE < 5.0 MG/DL (5.0-20.0)
[2020-12-14 19:00] LABS: ACETAMINOPHEN < 10 UG/ML (10-30)
[2020-12-14 19:11] LABS: TSH (THYROID ANALYZER) 2.84 UIU/ML (0.35-4.94)
[2020-12-14 19:24] LABS: AMPHETAMINE SCREEN, URINE NEGATIVE (NEGATIVE); BARBITURATE SCREEN URINE NEGATIVE (NEGATIVE); BENZODIAZEPINES SCREEN URINE NEGATIVE (NEGATIVE); CANNABINOID SCREEN, URINE NEGATIVE (NEGATIVE); COCAINE SCREEN URINE NEGATIVE (NEGATIVE); METHADONE STAT NEGATIVE (NEGATIVE); METHAMPHETAMINE SCREEN URINE S NEGATIVE (NEGATIVE); OPIATE SCREEN URINE NEGATIVE (NEGATIVE); OXYCODONE STAT NEGATIVE (NEGATIVE); PROPOXYPHENE STAT NEGATIVE (NEGATIVE); TRICYCLIC ANTIDEPRESSANTS SCRE POSITIVE (NEGATIVE)
[2020-12-14 19:26] VITALS: BP 128/75
--- NOTE | 2020-12-14 19:33 | Tele-ICU Consult ---
History of Present Illness History of Present Illness Date Seen by Provider: Dec 14, 2020 Time Seen by Provider: 19:30 Date of Admission History of Present Illness 60 y old man admitte to icu a ED with ams; the initial thought was that the patient may have an evolving stroke since left side neglect was reported; ct angio was negative for any deficit. Pt has ahx of hepatic encephalpathy/ with NH4 of 134. pt received ativan for agitation; no other hx was available via medical records. Allergies and Home Medications Allergies Coded Allergies: No Known Drug Allergies (Unverified , 09/03/16) Home Medications Aspirin/Acetaminophen/Caffeine 1 Each Tablet, 1 TAB PO BID PRN for PAIN, (Report ed) Baclofen 20 Mg Tablet, 10 MG PO TID PRN for PAIN-MODERATE, (Reported) Ergocalciferol (Vitamin D2) 50,000 Unit Capsule, 50,000 UNIT PO WEEK, (Reported) Gabapentin 600 Mg Tablet, 600 MG PO TID, (Reported) Hydrocodone/Acetaminophen 1 Each Tablet, 1 EACH PO Q4H Prescribed by: JASKARAN MORENO on 09/05/16 1406 Ketorolac Tromethamine 10 Mg Tablet, 10 MG PO TID, (Reported) Multivitamin 1 Each Tablet, 1 EACH PO DAILY, (Reported) Omeprazole 20 Mg Capsule.dr, 20 MG PO BID, (Reported) Pseudoephedrine HCl 30 Mg Tablet, 30-60 MG PO BID, (Reported) Tramadol HCl 50 Mg Tablet, 50 MG PO Q4H PRN for PAIN-MODERATE, (Reported) Trazodone HCl 50 Mg Tablet, 50 MG PO HS, (Reported) [4-Way Nasal [place]] , 2-3 SPRAYS NS Q4H PRN for CONGESTION, (Reported) Past Medical/Social/Family Hx Current Status Primary Language: Citizen Of [place] Preferred Spoken Language: Citizen Of [place] Sensory deficits: Vision impairment Past Medical History not known Review of Systems Constitutional: weakness Sepsis Event Evaluation Height, Weight, BMI Height: 6'2.00" Weight: 227lbs. 8.0oz. 103.748431yv; 36.00 BMI Method:Stated Exam Exam Patient acknowledged, consented, and participated in this virtual visit which was conducted using real time audio/video Vital Signs Date Time Temp Pulse Resp B/P (MAP) Pulse Ox O2 Delivery O2 Flow Rate FiO2 12/14/20 19:26 37.1 112 18 128/75 95 Room Air 12/14/20 14:04 36.4 105 22 112/80 (91) 96 Room Air Height & Weight Height: 6'2.00" Weight: 227lbs. 8.0oz. 103.666798hm; 36.00 BMI Method:Stated General Appearance: No Apparent Distress Capillary Refill: Less Than 3 Seconds Results Lab Laboratory Tests 12/14/20 14:14 12/14/20 14:49 12/14/20 15:47 12/14/20 17:00 Assessment/Plan Assessment/Plan AMS follow neurological exam Hepatic encephalopathy: start rifaximine UDS + for TC: ekg to be monitored High AG; check abg/ lactic acid; consideration for slow evolving sepsis needs to be given b12/ folic acid/ tsh ordered as part of AMS work up labs diagnostic were evaluated pt was visualized ADAL BEDOYA MD Dec 14, 2020 19:33
[2020-12-14] MEDS ORDERED: ONDANSETRON 4 MG/2 ML (SDV) Z0FRAN IVP PRN (20:00)
[2020-12-14] MEDS: LORazepam INJ 2 MG/ML (ATIVAN) VIAL IVP PRN (20:48)
[2020-12-14] MEDS: FAMOTIDINE 20MG/2ML IV (PEPCID) IVP SCH (21:48)
[2020-12-14] MEDS: LACTULOSE SYRUP 10GM/15ML (ENULOSE) 30ML UDC PO SCH (21:48)
[2020-12-14] MEDS: NS IV 1000 ML 1,000 ML IV SCH (23:17)
[2020-12-15] MEDS: LORazepam INJ 2 MG/ML (ATIVAN) VIAL IVP PRN ×3 (01:11→11:37)
[2020-12-15 03:42] LABS: BASOPHILS # (AUTO) 0.1 10^3/uL (0.0-0.1); BASOPHILS % (AUTO) 1 % (0-10); EOSINOPHILS # (AUTO) 0.1 10^3/uL (0.0-0.3); EOSINOPHILS % (AUTO) 1 % (0-10); HEMATOCRIT 30 % (40-54); LYMPHOCYTES % (AUTO) 24 % (12-44); MEAN CORPUSCULAR HEMOGLOBIN 32 pg (25-34); MEAN CORPUSCULAR HGB CONC 33 g/dL (32-36); MEAN CORPUSCULAR VOLUME 97 fL (80-99); MEAN PLATELET VOLUME 10.3 fL (9.0-12.2); MONOCYTES # (AUTO) 1.4 10^3/uL (0.0-1.0); MONOCYTES % (AUTO) 9 % (0-12); NEUTROPHILS # (AUTO) 10.6 10^3/uL (1.8-7.8); NEUTROPHILS % (AUTO) 65 % (42-75); PLATELET COUNT 203 10^3/uL (130-400); WHITE BLOOD COUNT 16.3 10^3/uL (4.3-11.0)
[2020-12-15 03:50] LABS: POTASSIUM 3.8 MMOL/L (3.6-5.0)
[2020-12-15 03:51] LABS: ALBUMIN 3.1 GM/DL (3.2-4.5)
[2020-12-15 03:52] LABS: CALCIUM 8.1 MG/DL (8.5-10.1)
[2020-12-15 03:53] LABS: INR 1.5 (0.8-1.4); PROTHROMBIN TIME PATIENT 18.6 SEC (12.2-14.7); TOTAL PROTEIN 6.6 GM/DL (6.4-8.2)
[2020-12-15 03:55] LABS: BILIRUBIN,TOTAL 1.1 MG/DL (0.1-1.0)
[2020-12-15 03:56] LABS: PHOSPHORUS 3.7 MG/DL (2.3-4.7)
[2020-12-15 03:57] LABS: CREATININE SERUM 0.84 MG/DL (0.60-1.30)
[2020-12-15 04:00] LABS: MAGNESIUM 2.2 MG/DL (1.6-2.4)
[2020-12-15 04:21] LABS: EOSINOPHILS % (MANUAL) 1 %; LYMPHOCYTES % (MANUAL) 16 %; MONOCYTES % (MANUAL) 11 %; NEUTROPHILS % (MANUAL) 72 %
[2020-12-15] MEDS: NS IV 1000 ML 1,000 ML IV SCH ×3 (05:49→14:58)
[2020-12-15] MEDS ORDERED: ACETAMINOPHEN 325 MG SUPP (TYLENOL) PR ONE (06:15)
[2020-12-15] MEDS ORDERED: VANCOMYCIN INJECTION 1,000 MG in NS (IVPB) 250 ML IV SCH (06:15)
[2020-12-15] MEDS: AMPICILLIN FOR IV USE 1,000 MG in WATER (STERILE) FOR INJECTION 7.4 ML IV SCH ×5 (06:54→22:10)
[2020-12-15] MEDS: cefTRIAXone 1,000 MG in WATER (STERILE) FOR INJECTION 10 ML IV SCH (06:54)
[2020-12-15] MEDS ORDERED: VANCOMYCIN 1 GM/NS 250 ML IVPB IV NR ×2 (07:00)
[2020-12-15] MEDS ORDERED: VANCOMYCIN 2,500 MG/NS 500 ML IVPB IV ONE ×2 (07:00)
--- NOTE | 2020-12-15 07:51 | Tele-ICU Progress Note ---
Subjective Date Seen by a Provider: Dec 15, 2020 Time Seen by a Provider: 12:39 Subjective/Events-last exam pt admitted with AMS, oriented x name only, ,ammonia level mildly elevated at 103 due to concern of meningitis, will ask IR service to do LP and do MRI LP done, await results Right now appears able to protect airway Sepsis Event Evaluation Height, Weight, BMI Height: 6'2.00" Weight: 227lbs. 8.0oz. 103.161294jl; 35.98 BMI Method:Stated Focused Exam Lactate Level 12/15/20 01:03: Lactic Acid Level 1.58 Exam Exam Patient acknowledged, consented, and participated in this virtual visit which was conducted using real time audio/video Vital Signs Date Time Temp Pulse Resp B/P (MAP) Pulse Ox O2 Delivery O2 Flow Rate FiO2 12/15/20 06:55 37.9 12/15/20 06:00 106 21 92 Room Air 12/15/20 05:00 110 21 91 Room Air 12/15/20 04:00 Room Air 12/15/20 04:00 106 15 91 Room Air 12/15/20 03:00 112 13 125/69 (87) 91 Room Air 12/15/20 02:20 37.3 12/15/20 02:00 114 25 125/74 (91) 91 Room Air 12/15/20 01:00 104 12/15/20 01:00 104 30 106/87 (93) 93 Room Air 12/15/20 00:00 37.8 12/15/20 00:00 103 32 119/70 (86) 91 Room Air 12/14/20 23:59 Room Air 12/14/20 23:00 101 33 120/78 (92) 92 Room Air 12/14/20 22:13 Room Air 12/14/20 22:00 105 31 167/98 (121) 92 Room Air 12/14/20 21:00 114 28 181/116 (137) 95 Room Air 12/14/20 20:51 104 12/14/20 20:30 116 26 94 Room Air 12/14/20 20:15 94 26 96 Room Air 12/14/20 20:00 104 28 94 Room Air 12/14/20 19:45 37.8 102 22 128/82 (97) 96 Room Air 12/14/20 19:26 37.1 112 18 128/75 95 Room Air 12/14/20 14:04 36.4 105 22 112/80 (91) 96 Room Air I & O 12/15/20 07:00 Intake Total 0 ml Output Total 1245 ml Balance -1245 ml Height & Weight Height: 6'2.00" Weight: 227lbs. 8.0oz. 103.369442oh; 35.98 BMI Method:Stated General Appearance: No Apparent Distress Respiratory: Lungs Clear, Respiratory Distress (increased WOB) Cardiovascular: Regular Rate, Rhythm Capillary Refill: Less Than 3 Seconds Gastrointestinal: normal bowel sounds, non tender, soft, distended Extremity: Pedal Edema Neurologic/Psychiatric: Other (Does not follow commands, responds to pain) Results Lab Laboratory Tests 12/14/20 14:14 12/14/20 14:49 12/14/20 15:47 12/14/20 17:00 12/15/20 03:35 Assessment/Plan Assessment/Plan w/u of mental status change in progress, await results of LP and MRI CIELO HINOJOSA MD Dec 15, 2020 07:51
[2020-12-15] MEDS ORDERED: VANCOMYCIN 1500 MG/NS 500 ML IVPB IV NR ×2 (08:00)
[2020-12-15] MEDS: LACTULOSE SYRUP 10GM/15ML (ENULOSE) 30ML UDC PO SCH ×2 (09:37→12:54)
[2020-12-15] MEDS: FAMOTIDINE 20MG/2ML IV (PEPCID) IVP SCH ×2 (09:37→19:49)
[2020-12-15 11:41] LABS: APPEARANCE,CSF CLEAR; COLOR,CSF COLORLESS; CSF GLUCOSE 77 MG/DL (50-80); RED BLOOD CELL,CSF 31 CELLS (0-0); WHITE BLOOD CELL,CSF 1 CELLS (0-5)
[2020-12-15 11:42] LABS: CSF TUBE NUMBER 4
[2020-12-15 11:47] LABS: CSF TOTAL PROTEIN 32 MG/DL (15-40)
--- NOTE | 2020-12-15 12:10 | Anesthesia-Procedure Note ---
Procedures/Interventions Procedure Start/Stop/Diagnosis Date of Procedure: Dec 15, 2020 Start Time: 09:52 Stop Time: 10:26 Lumbar Puncture Discussed Risk,Benefits: Yes Patient Consents: Yes (family consents) Position: Lying, Right Sterile Technique: Yes Fluid Color: clear Spinal Needle Used: 20g Quinke 3 1/2iRODDY Wagner CRNA Dec 15, 2020 12:10
[2020-12-15] MEDS ORDERED: GADOBUTROL 15 MMOL/15 ML (GADAVIST) VIAL IV ONE (12:45)
--- NOTE | 2020-12-15 13:09 | Diagnostic Imaging Report ---
Clinical indication: Patient is confused. Patient with altered level of consciousness. Rule out stroke. Exam: MRI of the brain performed without and with 11 cc of Gadavist IV contrast. Sequences include axial DWI, ADC map, axial gradient echo, axial T2, axial FLAIR, axial T1, axial T1 post IV contrast, coronal T1 fat-sat post IV contrast, and sagittal T1 post IV contrast. Comparison: Head CT without contrast dated 12/14/2020. Findings: There is motion artifact limiting evaluation portions of the brain parenchyma. There is no evidence of acute cerebral infarct, intracranial hemorrhage, or gross mass effect. There is no abnormal IV contrast enhancement. The brain parenchymal volume appears appropriate for patient's age. There is slight increase T1 signal involving both globus pallidus. There is normal haynes-white matter distinction. There is no significant midline shift or herniation. The [place] vascular structures show no gross abnormality as visualized. There is no evidence of hydrocephalus. The basal cisterns are unremarkable. The skull, extracranial soft tissue, and orbits are unremarkable. There is mild mucosal thickening involving the ethmoid sinus and left maxillary sinus. There is minimal fluid in the right mastoid air cells. Impression: 1: There is no evidence of acute intracranial process. There is no abnormal IV contrast enhancement. There is no acute cerebral infarct or intracranial hemorrhage. 2: There is note of slight increased T1 signal involving both globus pallidus. These findings are nonspecific and may be seen with chronic liver disease/hepatic encephalopathy, hyperalimentation treatment, microscopic heavy-metal deposition, or non-ketotic hyperglycemia. Clinical correlation would better evaluate. 3: Otherwise age-related brain parenchymal changes. Dictated by: Dictated on workstation # [id number]
--- NOTE | 2020-12-15 13:28 | Progress Note ---
Standard Progress Note Progress Notes/Assess & Plan Date Seen by a Provider: Dec 15, 2020 Time Seen by a Provider: 13:27 Progress/Assessment & Plan LP 1 WBC and 31 RBC's, MRI no major abnormalities Doubt meningitis Focused Exam Lactate Level 12/15/20 01:03: Lactic Acid Level 1.58 CIELO HINOJOSA MD Dec 15, 2020 13:28
--- NOTE | 2020-12-15 14:05 | History & Physical ---
History of Present Illness History of Present Illness Reason for visit/HPI PT IS A 60 Y/O MALE WHO IS A RELATIVELY NEW PATIENT IN THE PRACTICE. HE PRESENTED TO THE HOSPITAL AFTER HIS NOTICED OVER 24 HOURS OF ABNORMAL BEHAVIOR. SHE REPORTS THAT ON FRIDAY HE WAS CONFUSED, SHE HEARD A LOUD THUMP AND IT WAS HIM FALLING ON THE BED. SHE REPORTS THAT NIGHT HE TRIED TO TURN ON THEIR ALARM SYSTEM AND SHE HAD TO REMIND HIM THAT THE ALARM HAD NOT BEEN WORKING FOR A WHILE. SHE THEN REPORTS THAT SHE LET HIM SLEEP LAST NIGHT AND THEN YESTERDAY SHE HAD HER DAUGHTER TRY TO WAKE HIM UP TO TAKE HER SOMEWHERE AND SHE WAS UNABLE TO AWAKEN HIM. IN THE ER HE WAS COMBATIVE PULLING AT HIS CATHETER AND LINES, THEY HAD TO SEDATE HIM WITH SOME ATIVAN AND HE WAS THEN COMPLIANT WITH ACTIVITY/THERAPY AROUND HIM. PER NURSING STAFF THIS MORNING HE HAS BEEN GIVEN ATIVAN TO CALM HIM DOWN AND HE HAS BEEN ONLY ANSWERING YES/NO QUESTIONS. HIS REPORTS HE COMPLAINS OF PAIN WHEN HE IS MOVED AROUND IN THE BED. THIS MORNING HE OPENED HIS EYES WHEN I CALLED HIS NAME, AND HE WAS OTHERWISE UNABLE TO ANSWER ANY QUESTIONS. Date of Admission Dec 14, 2020 at 18:40 Date Seen by a Provider: Dec 15, 2020 Time Seen by a Provider: 09:30 I consulted on this patient on Attending Physician Ann-Marie Damian MD Admitting Physician Amari Villa MD Consult E-ICU Allergies and Home Medications Allergies Coded Allergies: No Known Drug Allergies (Unverified , 09/03/16) Home Medications Aspirin/Acetaminophen/Caffeine 1 Each Tablet, 1 TAB PO BID PRN for PAIN, (Reported) Last Action: Held Baclofen 20 Mg Tablet, 10 MG PO TID PRN for PAIN-MODERATE, (Reported) Last Action: Held Ergocalciferol (Vitamin D2) 50,000 Unit Capsule, 50,000 UNIT PO WEEK, (Reported) Last Action: Held Gabapentin 600 Mg Tablet, 600 MG PO TID, (Reported) Last Action: Held Hydrocodone/Acetaminophen 1 Each Tablet, 1 EACH PO Q4H Prescribed by: JASKARAN MORENO on 09/05/16 1406 Last Action: Held Ketorolac Tromethamine 10 Mg Tablet, 10 MG PO TID, (Reported) Last Action: Held Multivitamin 1 Each Tablet, 1 EACH PO DAILY, (Reported) Last Action: Held Omeprazole 20 Mg Capsule.dr, 20 MG PO BID, (Reported) Last Action: Held Pseudoephedrine HCl 30 Mg Tablet, 30-60 MG PO BID, (Reported) Last Action: Held Tramadol HCl 50 Mg Tablet, 50 MG PO Q4H PRN for PAIN-MODERATE, (Reported) Last Action: Held Trazodone HCl 50 Mg Tablet, 50 MG PO HS, (Reported) Last Action: Held [4-Way Nasal [place]] , 2-3 SPRAYS NS Q4H PRN for CONGESTION, (Reported) Last Action: Held Patient Home Medication List Home Medication List Reviewed: Yes Past Lfpgqps-Dvrwlv-Abksxe Hx Patient Social History Marrital Status: Living Status: LIVES WITH SPOUSE IN THEIR HOME, WORKS AT [employer] Employed/Student: employed Tobacco Use?: No Smoking Status: Never a Smoker Smokeless Tobacco Frequency: Never a User Use of E-Cig and/or Vaping dev: No Substance use?: Yes (past history of opiate) Substance type: Opiates/Opioids Substance frequency: Rarely Alcohol Use?: No Pt feels they are or have been: No Immunizations Up To Date Date of Influenza Vaccine: Jan 08, 2016 First/Initial COVID19 Vaccinat: JULY 2020 Second COVID19 Vaccination [place]: JULY 2020 Tetanus Booster (TDap): Unknown Hepatitis A: No Hepatitis B: No Seasonal Allergies Seasonal Allergies: No Current Status Advance Directives: No Communicates: Verbally Primary Language: [place] Preferred Spoken Language: [place] Is interpretation needed?: No Sensory deficits: Vision impairment Implanted or Applied Medical D: None Past Medical History Surgeries: Abdominal Currently Using CPAP: No Currently Using BIPAP: No Headaches /Migraines Sexually Transmitted Disease: No HIV/AIDS: No Benign Prostatic Hyperpl Gastroesophageal Reflux, Liver Disease/Jaundice (Fatty liver disease) Chronic Back Pain Diabetes, Non-Insulin dep Loss of Vision: Denies Hearing Impairment: Denies Did You Recieve Any Treatments: No Anxiety, Bipolar Adverse Reaction/Blood Tranf: No not known Family Medical History Reviewed Nursing Family Hx Arthritis 19 FATHER Cancer of mouth Congenital heart disease 19 FATHER Myocardial infarction 19 FATHER Neoplasm 19 FATHER 19 MOTHER Parkinson's disease 19 FATHER Psychosocial problem 19 FATHER 19 MOTHER Heart Disease, Cancer, Psychiatric Problems, Other Conditions/Hx (PARKINSON'S DISEASE) Review of Systems Constitutional: No chills, No dizziness, No fever; malaise, weakness EENTM: No hearing loss, No throat pain Respiratory: No cough, No dyspnea on exertion, No short of breath Cardiovascular: No chest pain, No edema Gastrointestinal: abdominal pain; No constipation, No diarrhea, No melena, No nausea, No vomiting Genitourinary: other (retention) Musculoskeletal: muscle twitching, muscle weakness Skin: no symptoms reported Psychiatric/Neurological: Other (obtunded) All Other Systems Reviewed Negative Unless Noted: Yes Physical Exam Vital Signs Vital Signs - First Documented 12/14/20 12/15/20 14:04 12:00 Temp 36.4 Pulse 105 Resp 22 B/P (MAP) 112/80 (91) Pulse Ox 96 O2 Delivery Room Air O2 Flow Rate 94.00 Capillary Refill : Less Than 3 Seconds Height, Weight, BMI Height: 6'2.00" Weight: 227lbs. 8.0oz. 103.357227au; 35.98 BMI Method:Stated General Appearance: Mild Distress, Other (groaning with movement) HEENT: PERRL/EOMI, Pharynx Normal Neck: Full Range of Motion, Non Tender, Supple Respiratory: Chest Non Tender, Lungs Clear, Normal Breath Sounds, No Accessory Muscle Use, No Respiratory Distress Cardiovascular: Regular Rate, Rhythm, Normal Peripheral Pulses Gastrointestinal: Normal Bowel Sounds, No Organomegaly, No Pulsatile Mass, Non Tender, Soft Rectal: Deferred Extremity: Normal Capillary Refill, Normal Inspection, Non Tender, No Calf Tenderness, No Pedal Edema Neurologic/Psychiatric: Disoriented; No EOM Palsy, No Facial Droop Reflexes: 2+ Bicep (R), 2+ Bicep (L), 2+ Tricep (R), 2+ Tricep (L), 2+ Knee (R), 2+ Knee (L), 2+ Ankle (R), 2+ Ankle (L) Skin: Normal Color, Warm/Dry Lymphatic: No Adenopathy Assessment/Plan Assessment and Plan ECEPHALOPATHY ELEVATED AMMONIA LEVEL ELEVATED BILIRUBIN LEVEL LEUKOCYTOSIS OBTUNDED CONFUSED CHRONIC BIPOLAR CHRONIC PSYCHIATRIC MEDICATION USE DIABETES MELLITUS BPH ANEMIA ECEPHALOPATHY WITH ELEVATED AMMONIA LEVEL AND ELEVATED BILIRUBIN LEVEL - PT IS CURRENTLY OBTUNDED/CONFUSED - WE WILL PLACE AN NG TUBE TO BE ABLE TO DELIVER THE LACTULOSE TO HELP DECREASE THE AMMONIA LEVEL EVEN FURTHER - STAFF AND FAMILY NOTIFIED OF THIS PLAN. - DUE TO THE CURRENT SITUATION WE WILL INCREASE ANTIBIOTIC COVERAGE TO INCLUDE TICK BORNE ILLNESSES. - TICK PANEL/LYME PANEL PENDING - WE WILL ALSO CHECK A WEST-NILE PANEL DUE TO THE HEAVY POPULATION OF MOSQUITOS IN THE COMMUNITY - I HAVE WRITTEN FOR AN HIV TEST AND HEAVY METAL TESTING SINCE THE MRI INDICATED THAT THERE MAY BE A HEAVY METAL ENCEPHALOPATHY - SEE REPORT BELOW. - PT IS ON BROAD SPECTRUM COVERAGE FOR MENINGITIS - LUMBAR PUNCTURE TODAY - VANCOMYCIN, AMPICILLIN, ROCEPHIN STARTED BY E-ICU - PT ON CONTACT PRECAUTIONS - WILL START IV ACYCLOVIR FOR A SHORT COURSE - PT'S FAMILY WAS REQUESTING A TRANSFER TO [facility] (THEY CALLED TO SEE IF THEY HAD ANY EMPTY BEDS AND THEN DEMANDED FOR THE NURSE TO CALL THIS FIELD OPERATIONS FARM MANAGER OR THE [facility] PHYSICIAN TO INITIATE A TRANSFER) - I CALLED AND HAD A 20 MINUTE CONVERSATION WITH THE PT'S SPOUSE AND DAUGHTER OVER THE PHONE ( I TALKED TO HIS TODAY AND EXPLAINED HIS SITUATION AND OUR PLAN FOR TREATMENT THIS MORNING - SPENT ABOUT 10-15 MINUTES WITH HER AFTER I HAD ALREADY EXAMINED THE PATIENT). DURING THE CONVERSATION, I EXPLAINED THAT IN THE PROCESS OF TRANSFER OF A PATIENT, IT IS NOT JUST "IS THERE A BED" - IT IS ALSO - "DOES THIS PATIENT NEED TO BE TRANSFERRED" - HE HAS NOT EVEN BEEN IN THE HOSPITAL FOR 24 HOURS AND HE HAS SHOWN IMPROVEMENT IN HIS LIVER FUNCTION, AND HIS AMMONIA LEVEL HAS IMPROVED EVEN WITHOUT THE ABILITY OF THE PT TO RECEIVE LACTULOSE BECAUSE AN NG TUBE WAS NOT PLACE FOR DELIVERY OF THE LACTULOSE AT THE TIME OF OUR CONVERSATION. I INFORMED THEM THAT RIGHT NOW I DO NOT BELIEVE THAT HE WOULD BE A CANDIDATE FOR TRANSFER SINCE HE IS SHOWING SIGNS OF IMPROVEMENT. HIS DAUGHTER STATED THAT "HE WAS ABLE TO TELL ME THAT HE LOVED ME LAST NIGHT IN THE ER AND NOW HE CAN'T" I EXPLAINED TO HER THAT HE HAD BEEN GIVEN ATIVAN TO CALM HIM DOWN AND THAT IS MOST-LIKELY THE REASON THAT HE IS NOT ABLE TO COMMUNICATE BUT THAT HE DID INDICATE HE WAS IN PAIN WHEN I WAS EXAMINING HIM T HIS MORNING. SHE THEN WAS QUESTIONING ME ABOUT HIS CT SCAN OF HIS STOMACH THAT WAS DONE ON 11/21 AN OUTPT WHICH "SHOWED CIRRHOSIS" AND WE NEED TO GET ON TOP OF HIS LIVER FAILURE AND HEPATIC ENCEPHALOPATHY OR ELSE HE WILL . I INFORMED HER AGAIN THAT THE CT SCAN FROM 11/21/20 DID NOT SPECIFICALLY SHOW CIRRHOSIS, BUT WAS "CONCERNING FOR POSSIBLE CIRRHOSIS" AND THE CT SCAN FROM LAST NIGHT DID NOT MENTION CIRRHOSIS. I ASKED THE PT'S AND DTR TO ALLOW THE PHYSICIANS TO DETERMINE THE BEST COURSE OF ACTION AND TREATMENT BASED ON THE MEDICAL FINDINGS AND OUR EXPERTISE SURROUNDING HIS ILLNESS. WE ARE STILL IN THE INVESTIGATION AN D BROAD TREATMENT APPROACH TO HIS ILLNESS. I HAVE ORDERED A LOT OF TESTING AND IT WILL TAKE AT LEAST 48+ HOURS TO GET BACK THE INFORMATION THAT WILL HELP TO NARROW DOWN OUR TREATMENT PROTOCOLS TO A TARGETED TREATMENT REGIMEN. THE PT'S AND DTR VERBALIZED UNDERSTANDING OF THE PLAN AND ARE IN AGREEMENT WITH THE COURSE OF ACTION WE ARE TAKING TO TREAT HIM FOR HIS CURRENT ILLNESS. CHRONIC BIPOLAR WITH CHRONIC PSYCHIATRIC MEDICATION USE - HOLD ALL CURRENT MEDICATIONS - I WOULD BE CONCERNED ABOUT NEUROLEPTIC MALIGNANT SYNDROME - TREATMENT IS TO STOP PSYCHIATRIC MEDICATIONS AND MONITOR PT CLOSELY FOR RESOLUTION OF SYMPTOMS. DIABETES MELLITUS - HOLD MEDICATIONS - CHECK HGBA1C BPH - PT RECENTLY STARTED ON PROSCAR - HOLD FOR NOW, [place] IN PLACE ANEMIA - MONITOR LABS - CHECK VITAMIN B 12 AND FOLATE DVT PROPHYLAXIS WITH SCD'S AND LOVENOX GI PROPHYLAXIS WITH PPI THERAPY. I SPENT OVER AN HOUR IN CONVERSATIONS WITH FAMILY, EXAMINING PATIENT, WRITING ORDERS, AND DISCUSSION OF CASE WITH NURSING STAFF WELL PASSING HIS CARE OVER TO THE RETAIL MAINTENANCE TECHNICIAN PHYSICIAN FOR THE WEEKEND. I WILL SEE THE PT ON FRIDAY MORNING. E-ICU CONSULTING ON THIS CASE. Draft Date of Exam:12/15/20 MRI BRAIN W/WO CONTRAST Clinical indication: Patient is confused. Patient with altered level of consciousness. Rule out stroke. Comparison: Head CT without contrast dated 12/14/2020. Findings: There is motion artifact limiting evaluation portions of the brain parenchyma. There is no evidence of acute cerebral infarct, intracranial hemorrhage, or gross mass effect. There is no abnormal IV contrast enhancement. The brain parenchymal volume appears appropriate for patient's age. There is slight increase T1 signal involving both globus pallidus. There is normal haynes-white matter distinction. There is no significant midline shift or herniation. The [place] vascular structures show no gross abnormality as visualized. There is no evidence of hydrocephalus. The basal cisterns are unremarkable. The skull, extracranial soft tissue, and orbits are unremarkable. There is mild mucosal thickening involving the ethmoid sinus and left maxillary sinus. There is minimal fluid in the right mastoid air cells. Impression: 1: There is no evidence of acute intracranial process. There is no abnormal IV contrast enhancement. There is no acute cerebral infarct or intracranial hemorrhage. 2: There is note of slight increased T1 signal involving both globus pallidus. These findings are nonspecific and may be seen with chronic liver disease/hep atic encephalopathy, hyperalimentation treatment, microscopic heavy-metal deposition, or non-ketotic hyperglycemia. Clinical correlation would better evaluate. 3: Otherwise age-related brain parenchymal changes. Dict: 12/15/20 1250 Trans: 12/15/20 1309 [facility] [id number] Interpreted by: KATY AGARWAL MD Signed Date of Exam:12/14/20 CT ABDOMEN/PELVIS W PROCEDURE: CT abdomen and pelvis with contrast. DATE: December 14, 2020. COMPARISON: CT abdomen and pelvis November 21, 2020. INDICATION: 60-year-old male, abdominal pain, bloody stools. FINDINGS: There are linear opacities in the right lower lobe consistent with atelectasis. The heart is not enlarged. There is no pericardial effusion. The liver is unremarkable in size and contour. There is no identified focal liver lesion. The main, right and left portal veins are patent. The gallbladder is surgically absent. There is no intrahepatic or extrahepatic bile duct dilation. The main pancreatic duct is not abnormally dilated. Unremarkable appearance of the pancreatic parenchyma. There is accessory splenule. The spleen is normal in size. The adrenal glands are unremarkable. Unremarkable appearance of the renal parenchyma. The urinary collecting systems are not distended. There is a Harrington catheter in the urinary bladder. The urinary bladder is relatively collapsed. The intestinal tract is not distended. There is no evidence of acute appendicitis. There is no free intraperitoneal air. There is no drainable fluid collection. There is peritoneal strandiness without sizable volume ascites. There are atherosclerotic calcifications. There is no identified abnormally enlarged lymph node in the abdomen or pelvis meeting CT size criteria for adenopathy. There is no identified acute bony abnormality. IMPRESSION: CT abdomen and pelvis: 1. Peritoneal strandiness without sizable volume ascites. This is nonspecific. 2. No identified acute abnormality in the abdomen or pelvis. Dictated by: Dictated on workstation # [id number] Dict: 12/14/20 1733 Trans: 12/14/20 1832 [facility] [id number] Interpreted by: SANDRA CRONIN MD Electronically signed by: SANDRA CRONIN MD 12/14/20 1832 Admission Diagnosis ECEPHALOPATHY ELEVATED AMMONIA LEVEL ELEVATED BILIRUBIN LEVEL LEUKOCYTOSIS OBTUNDED CONFUSED CHRONIC BIPOLAR CHRONIC PSYCHIATRIC MEDICATION USE DIABETES MELLITUS BPH ANEMIA Admission Status: Inpatient Order (span 2 midnights) Reason for Inpatient Admission: INPATIENT ADMISSION FOR TREATMENT OF OBTUNDED PATIENT WITH UNKNOWN EITIOLOGY OF ILLNESS. WILL REQUIRE AT LEAST 72+ HOURS IN THE HOSPITAL ANN-MARIE DAMIAN MD Dec 15, 2020 14:05
[2020-12-15] MEDS: VANCOMYCIN 1500 MG/NS 500 ML IVPB IV SCH ×4 (14:59→23:22)
[2020-12-15] MEDS ORDERED: GLIP5TAB13 PO (15:32)
[2020-12-15] MEDS ORDERED: VILA40TA PO (15:32)
[2020-12-15] MEDS ORDERED: ACET-2267 PO (15:32)
[2020-12-15] MEDS ORDERED: TMSL.4C PO (15:32)
[2020-12-15] MEDS ORDERED: FINA5TAB6 PO (15:32)
[2020-12-15] MEDS ORDERED: IBUP-2185 PO (15:32)
[2020-12-15] MEDS ORDERED: IBUP-1773 PO (15:32)
[2020-12-15] MEDS ORDERED: ASPI-789 PO (15:32)
[2020-12-15] MEDS ORDERED: QUET200T29 PO (15:32)
--- NOTE | 2020-12-15 15:42 | Diagnostic Imaging Report ---
INDICATION: Nasogastric tube placement. TECHNIQUE: Single view chest, 3:33 p.m. CORRELATION STUDY: 12/14/2020. FINDINGS: Gastric tube has been placed with tip in the left upper quadrant, likely just distal to the gastroesophageal junction. Side-port likely at the level of the GE junction. There is rather extensive opacification of the right lung base. Large portion of this may be owing to elevated diaphragm but appears increased, maybe additional atelectasis, infiltrate, and/or effusion. Left lung is relatively symmetrically well inflated and clear. Mediastinal structures are largely obscured but appear unchanged. IMPRESSION: 1. Gastric tube tip likely in the proximal body of the stomach with side-port at the GE junction. This could be advanced approximately 10 cm for further positioning into the stomach if desired. 2. Progressive opacification of the right lung base. Likely a combination of elevated right diaphragm with likely atelectasis versus less likely infiltrate and/or effusion in the right lung base. Dictated by: Dictated on workstation # [id number]
[2020-12-15] MEDS: LACTULOSE SYRUP 10GM/15ML (ENULOSE) 30ML UDC NG SCH ×2 (16:44→19:50)
[2020-12-15 17:02] LABS: ABG BASE EXCESS -3.1 MMOL/L (-2.5-2.5); ABG OXYGEN SATURATION 93 % (94-100); ABG PCO2 33 MMHG (35-45); ABG PH 7.41 (7.37-7.43); ABG PO2 68 MMHG (79-93); ABG TCO2 21.7 MMOL/L (21.0-31.0)
[2020-12-15 17:03] LABS: ALLENS TEST POSITIVE; PATIENT TEMP 37.3; VENTILATOR NO
[2020-12-15] MEDS: DOXYCYCLINE INJECTION 100 MG in NS (IVPB) 100 ML IV SCH (17:55)
[2020-12-15] MEDS: ACYCLOVIR INJECTION 500 MG in NS (IVPB) 100 ML IV SCH (22:09)
[2020-12-16] MEDS: NS IV 1000 ML 1,000 ML IV SCH ×2 (00:36→05:35)
[2020-12-16] MEDS: AMPICILLIN FOR IV USE 1,000 MG in WATER (STERILE) FOR INJECTION 7.4 ML IV SCH ×3 (01:59→09:33)
[2020-12-16] MEDS: DOXYCYCLINE INJECTION 100 MG in NS (IVPB) 100 ML IV SCH ×2 (02:00→18:11)
[2020-12-16 03:52] LABS: BASOPHILS # (AUTO) 0.1 10^3/uL (0.0-0.1); BASOPHILS % (AUTO) 1 % (0-10); EOSINOPHILS # (AUTO) 0.1 10^3/uL (0.0-0.3); EOSINOPHILS % (AUTO) 1 % (0-10); HEMATOCRIT 29 % (40-54); HEMOGLOBIN 9.6 g/dL (13.3-17.7); LYMPHOCYTES % (AUTO) 23 % (12-44); MEAN CORPUSCULAR HEMOGLOBIN 33 pg (25-34); MEAN CORPUSCULAR HGB CONC 34 g/dL (32-36); MEAN CORPUSCULAR VOLUME 99 fL (80-99); MONOCYTES # (AUTO) 1.5 10^3/uL (0.0-1.0); MONOCYTES % (AUTO) 9 % (0-12); NEUTROPHILS # (AUTO) 11.5 10^3/uL (1.8-7.8); NEUTROPHILS % (AUTO) 67 % (42-75); PLATELET COUNT 249 10^3/uL (130-400); WHITE BLOOD COUNT 17.3 10^3/uL (4.3-11.0)
[2020-12-16 04:05] LABS: POTASSIUM 3.6 MMOL/L (3.6-5.0)
[2020-12-16 04:06] LABS: CALCIUM 7.9 MG/DL (8.5-10.1)
[2020-12-16 04:10] LABS: CREATININE SERUM 0.87 MG/DL (0.60-1.30); PHOSPHORUS 3.2 MG/DL (2.3-4.7)
[2020-12-16 04:12] LABS: MAGNESIUM 2.3 MG/DL (1.6-2.4)
[2020-12-16] MEDS: POTASSIUM CL 10MEQ/50ML IVPB 50 ML IV SCH ×3 (04:15→05:35)
[2020-12-16] MEDS: KCL 20 MEQ TAB (K-DUR) PO SCH (04:16)
[2020-12-16] MEDS: MAGNESIUM 1 GM/100 ML IVPB 100 ML IV SCH (04:16)
[2020-12-16] MEDS: LORazepam INJ 2 MG/ML (ATIVAN) VIAL IVP PRN (04:43)
[2020-12-16] MEDS ORDERED: TROUGH ORDER-PHARMACY XX NR (06:00)
[2020-12-16] MEDS: cefTRIAXone 1,000 MG in WATER (STERILE) FOR INJECTION 10 ML IV SCH (06:34)
[2020-12-16] MEDS: ACYCLOVIR INJECTION 500 MG in NS (IVPB) 100 ML IV SCH ×2 (06:34→15:44)
[2020-12-16] MEDS: VANCOMYCIN 1500 MG/NS 500 ML IVPB IV SCH ×4 (07:35→19:55)
[2020-12-16] MEDS ORDERED: WATER (STERILE) FOR INJECTION 10 ML ONE (09:29)
[2020-12-16] MEDS: FAMOTIDINE 20MG/2ML IV (PEPCID) IVP SCH ×2 (09:33→19:56)
[2020-12-16] MEDS: LACTULOSE SYRUP 10GM/15ML (ENULOSE) 30ML UDC NG SCH ×4 (09:33→19:56)
--- NOTE | 2020-12-16 10:31 | Tele-ICU Progress Note ---
Subjective Date Seen by a Provider: Dec 16, 2020 Time Seen by a Provider: 09:45 Subjective/Events-last exam This virtual visit was conducted using real time audio/video. Thank you for asking us to see this patient for hepatic encephalopathy.. HPC: Recent events: remains unresponsive. NGT placed to administer Lactulose. PMH: DM, fatty liver. SH: smoking history N FH: Non-contributory ROS: limited by patient's clinical condition. PE: Sleeping peacefully. VSS HR 90 nsr BP 131/83 RR 26 O2 sat 96% on RA HEENT: No obvious masses, adenopathy or JVD. Chest: clear to auscultation. CV: RRR S1 S2 No murmur or added sounds. Abd: Non-tender. Bowel sounds . : Unremarkable. Chiu Y . 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 No obvious focal findings. Extremities: No edema. Capillary refill < 3 seconds. Skin: unremarkable. Results: Elevated Na 148, glucose 140. Decreased Hb 9.6. A/P: Hepatic Encephalopathy: started Lactulose. Incr Na: Free H2O 500ml /shift. Change IVF from NS to 1/2 normal 75 ml/hr. Respiratory insufficiency/distress: None currently Available chart/ vitals / labs / Images reviewed. Video assessment done using teleICU camera, rest of exam as per RN. Critical Care: critically ill patient. Discussed with JESÚS Rachel. Asked RN to reach out to eICU if any questions or concerns later. Time spent with patient//coordination of care with other health professionals (mins): 15. Sepsis Event Evaluation Height, Weight, BMI Height: 6'2.00" Weight: 227lbs. 8.0oz. 103.934761gr; 35.98 BMI Method:Stated Focused Exam Lactate Level 12/15/20 01:03: Lactic Acid Level 1.58 Exam Exam Patient acknowledged, consented, and participated in this virtual visit which was conducted using real time audio/video Vital Signs Date Time Temp Pulse Resp B/P (MAP) Pulse Ox O2 Delivery O2 Flow Rate FiO2 12/16/20 09:00 99 26 145/72 (96) 96 Room Air 12/16/20 08:12 37.3 12/16/20 08:00 Room Air 12/16/20 08:00 105 27 150/78 (95) 94 Room Air 12/16/20 07:00 107 7/31/21 07:00 106 26 147/80 (104) 92 Room Air 12/16/20 06:00 101 33 129/72 (91) 95 Room Air 12/16/20 05:00 98 35 134/81 (98) 95 Room Air 12/16/20 04:00 Room Air 94.00 12/16/20 04:00 112 28 173/95 (121) 92 Room Air 12/16/20 03:00 110 19 162/89 (113) 93 Room Air 12/16/20 02:00 101 48 142/91 (108) 94 Room Air 12/16/20 01:16 101 12/16/20 01:00 99 44 154/85 (108) 92 Room Air 12/16/20 00:00 102 33 147/77 (100) 92 Room Air 12/15/20 23:59 Room Air 94.00 12/15/20 23:25 37.2 12/15/20 23:00 112 37 125/66 (85) 90 Room Air 12/15/20 22:00 109 42 137/72 (93) 91 Room Air 12/15/20 21:00 102 32 153/83 (106) 92 Room Air 12/15/20 20:00 Room Air 94.00 12/15/20 20:00 100 31 171/94 (119) 91 Room Air 12/15/20 20:00 36.7 12/15/20 19:00 100 12/15/20 19:00 100 33 147/97 (114) 91 Room Air 12/15/20 18:00 102 33 166/91 (116) 93 Room Air 12/15/20 17:00 98 32 165/85 (111) 94 Room Air 12/15/20 16:00 104 33 148/89 (108) 93 Room Air 12/15/20 16:00 Room Air 12/15/20 15:28 37.3 12/15/20 15:00 105 35 163/85 (111) 93 Room Air 12/15/20 14:00 37.1 12/15/20 14:00 104 22 151/89 (109) 94 Room Air 12/15/20 13:00 104 12/15/20 13:00 101 23 139/69 (92) 93 Room Air 12/15/20 12:30 105 145/85 (105) 95 Room Air 12/15/20 12:00 Room Air 12/15/20 11:00 104 17 159/73 (101) 94 Room Air I & O 12/16/20 07:00 Intake Total 0 ml Output Total 1670 ml Balance -1670 ml Height & Weight Height: 6'2.00" Weight: 227lbs. 8.0oz. 103.926689ff; 35.98 BMI Method:Stated General Appearance: Mild Distress, Other (groaning with movement) HEENT: PERRL/EOMI, Pharynx Normal Neck: Full Range of Motion, Non Tender, Supple Respiratory: Chest Non Tender, Lungs Clear, Normal Breath Sounds, No Accessory Muscle Use, No Respiratory Distress Cardiovascular: Regular Rate, Rhythm, Normal Peripheral Pulses Capillary Refill: Less Than 3 Seconds Gastrointestinal: normal bowel sounds, non tender, soft, distended Extremity: Normal Capillary Refill, Normal Inspection, Non Tender, No Calf Tenderness, No Pedal Edema Neurologic/Psychiatric: Disoriented; No EOM Palsy, No Facial Droop Skin: Normal Color, Warm/Dry Lymphatic: No Adenopathy Results Lab Laboratory Tests 12/14/20 14:14 12/14/20 14:49 12/14/20 15:47 12/14/20 17:00 12/15/20 03:35 12/16/20 03:34 12/16/20 03:41 Assessment/Plan Assessment/Plan see free text. Critical Care: Critically Ill Patient Time spent on discussion(mins): 0 BARBARA DOWD MD Dec 16, 2020 10:31
[2020-12-16] MEDS ORDERED: PIPERACILLIN/TAZOBACTAM (BULK) 4.5 GM in NS (IVPB) 100 ML IV NR (11:00)
[2020-12-16] MEDS: 1/2 NS IV SOLUTION 1,000 ML IV SCH (11:09)
--- NOTE | 2020-12-16 11:11 | Progress Note ---
Subjective Date Seen by a Provider: Dec 16, 2020 Time Seen by a Provider: 11:08 Subjective/Events-last exam Fwup hepatic encephalopathy, DMII, Bipolar, Leukocytosis. Does try to open eyes to voice today and did answer yes and no questions with a garble. Focused Exam Lactate Level 12/15/20 01:03: Lactic Acid Level 1.58 Objective Exam Vital Signs Date Time Temp Pulse Resp B/P (MAP) Pulse Ox O2 Delivery O2 Flow Rate FiO2 12/16/20 10:00 92 20 131/83 (99) 88 Room Air 12/16/20 09:00 99 26 145/72 (96) 96 Room Air 12/16/20 08:12 37.3 12/16/20 08:00 Room Air 12/16/20 08:00 105 27 150/78 (95) 94 Room Air 12/16/20 07:00 107 12/16/20 07:00 106 26 147/80 (104) 92 Room Air 12/16/20 06:00 101 33 129/72 (91) 95 Room Air 12/16/20 05:00 98 35 134/81 (98) 95 Room Air 12/16/20 04:00 Room Air 94.00 12/16/20 04:00 112 28 173/95 (121) 92 Room Air 12/16/20 03:00 110 19 162/89 (113) 93 Room Air 12/16/20 02:00 101 48 142/91 (108) 94 Room Air 12/16/20 01:16 101 12/16/20 01:00 99 44 154/85 (108) 92 Room Air 12/16/20 00:00 102 33 147/77 (100) 92 Room Air 12/15/20 23:59 Room Air 94.00 12/15/20 23:25 37.2 12/15/20 23:00 112 37 125/66 (85) 90 Room Air 12/15/20 22:00 109 42 137/72 (93) 91 Room Air 12/15/20 21:00 102 32 153/83 (106) 92 Room Air 12/15/20 20:00 Room Air 94.00 12/15/20 20:00 100 31 171/94 (119) 91 Room Air 12/15/20 20:00 36.7 12/15/20 19:00 100 12/15/20 19:00 100 33 147/97 (114) 91 Room Air 12/15/20 18:00 102 33 166/91 (116) 93 Room Air 12/15/20 17:00 98 32 165/85 (111) 94 Room Air 12/15/20 16:00 104 33 148/89 (108) 93 Room Air 12/15/20 16:00 Room Air 12/15/20 15:28 37.3 12/15/20 15:00 105 35 163/85 (111) 93 Room Air 12/15/20 14:00 37.1 12/15/20 14:00 104 22 151/89 (109) 94 Room Air 12/15/20 13:00 104 12/15/20 13:00 101 23 139/69 (92) 93 Room Air 12/15/20 12:30 105 145/85 (105) 95 Room Air 12/15/20 12:00 Room Air I & O 12/16/20 07:00 Intake Total 0 ml Output Total 1670 ml Balance -1670 ml Capillary Refill : Less Than 3 Seconds General Appearance: Mild Distress Respiratory: Lungs Clear, Decreased Breath Sounds Cardiovascular: Regular Rate, Rhythm Gastrointestinal: normal bowel sounds, non tender, soft Extremity: Non Tender, No Calf Tenderness, No Pedal Edema Neurologic/Psychiatric: Disoriented Results Lab Laboratory Tests 12/15/20 15:50: 12/15/20 16:50: Blood Gas Puncture Site LEFT RADIAL, Blood Gas Patient Temperature 37.3, Arterial Blood pH 7.41, Arterial Blood Partial Pressure CO2 33L, Arterial Blood Partial Pressure O2 68L, Arterial Blood HCO3 21L, Arterial Blood Total CO2 21.7, Arterial Blood Oxygen Saturation 93L, Arterial Blood Base Excess -3.1L, Leo Test POSITIVE, Blood Gas Ventilator Setting NO, Blood Gas Inspired Oxygen N/A 12/15/20 18:12: Glucometer 136H 12/15/20 23:30: Glucometer 138H 12/16/20 02:00: Stool Occult Blood Immunoassay POSITIVEH 12/16/20 03:34: Sodium Level 148H, Potassium Level 3.6, Chloride Level 117H, Carbon Dioxide Level 17L, Anion Gap 14, Blood Urea Nitrogen 18, Creatinine 0.87, Estimat Glomerular Filtration Rate 90, BUN/Creatinine Ratio 21, Glucose Level 140H, Calcium Level 7.9L, Phosphorus Level 3.2, Magnesium Level 2.3 12/16/20 03:41: White Blood Count 17.3H, Red Blood Count 2.90L, Hemoglobin 9.6L, Hematocrit 29L, Mean Corpuscular Volume 99, Mean Corpuscular Hemoglobin 33, Mean Corpuscular Hemoglobin Concent 34, Red Cell Distribution Width 16.8H, Platelet Count 249, Mean Platelet Volume 10.0, Immature Granulocyte % (Auto) 1, Neutrophils (%) (Auto) 67, Lymphocytes (%) (Auto) 23, Monocytes (%) (Auto) 9, Eosinophils (%) (Auto) 1, Basophils (%) (Auto) 1, Neutrophils # (Auto) 11.5H, Lymphocytes # (Auto) 4.0, Monocytes # (Auto) 1.5H, Eosinophils # (Auto) 0.1, Basophils # (Auto) 0.1, Immature Granulocyte # (Auto) 0.1 12/16/20 06:10: Vancomycin Level Trough 15.8 Microbiology 12/15/20 Gram Stain - Final, Resulted 12/15/20 CSF Culture - Preliminary, Resulted No growth 12/14/20 MRSA Screen - Final, Complete MRSA not isolated Assessment/Plan Assessment/Plan Assess & Plan/Chief Complaint 1. Hepatic Encephalopathy--on lactulose for ammonia, Lumbar puncture cultures pending, tick/west nile and heavy metal screens pending--continue doxycycline and acyclovir and add antifungal 2. Leukocytosis with Right Lung Base Atelectesis vs Infiltrate--Change Rocephin and ampicillin to Zosyn, continue Vancomycin 3. DMII--on accuchecks with SSI--stable 4. Hypernatremia--IVFs changed per eICU I did call with update and daughter was also on speaker phone--they had requested a transfer to [place] yesterday--I did tell them that if a bed was available that far away that he would need either a private ambulance or air ambulance to go that far, we also discussed that transfers closer by are very hard to find right now due to COVID--they understand that I will give them an update tomorrow after LAURA Avila DO Dec 16, 2020 11:11
[2020-12-16] MEDS ORDERED: ANIDULAFUNGIN INJECTION 200 MG in NS (IVPB) 250 ML IV ONE (11:15)
[2020-12-16] MEDS ORDERED: PIPERACILLIN/TAZOBACTAM (BULK) 4.5 GM in NS (IVPB) 100 ML IV SCH (17:00)
[2020-12-17] MEDS: LORazepam INJ 2 MG/ML (ATIVAN) VIAL IVP PRN ×2 (00:26→04:48)
[2020-12-17] MEDS: 1/2 NS IV SOLUTION 1,000 ML IV SCH (00:27)
[2020-12-17] MEDS: ACYCLOVIR INJECTION 500 MG in NS (IVPB) 100 ML IV SCH ×2 (00:28→05:55)
[2020-12-17] MEDS: DOXYCYCLINE INJECTION 100 MG in NS (IVPB) 100 ML IV SCH (03:22)
[2020-12-17 03:31] LABS: BASOPHILS # (AUTO) 0.1 10^3/uL (0.0-0.1); BASOPHILS % (AUTO) 0 % (0-10); EOSINOPHILS # (AUTO) 0.3 10^3/uL (0.0-0.3); EOSINOPHILS % (AUTO) 2 % (0-10); HEMATOCRIT 29 % (40-54); HEMOGLOBIN 9.3 g/dL (13.3-17.7); LYMPHOCYTES # (AUTO) 4.2 X 10^3 (1.0-4.0); LYMPHOCYTES % (AUTO) 29 % (12-44); MEAN CORPUSCULAR HEMOGLOBIN 33 pg (25-34); MEAN CORPUSCULAR HGB CONC 33 g/dL (32-36); MEAN CORPUSCULAR VOLUME 101 fL (80-99); MEAN PLATELET VOLUME 10.7 fL (9.0-12.2); MONOCYTES # (AUTO) 1.3 X 10^3 (0.0-1.0); MONOCYTES % (AUTO) 9 % (0-12); NEUTROPHILS # (AUTO) 8.5 X 10^3 (1.8-7.8); NEUTROPHILS % (AUTO) 59 % (42-75); PLATELET COUNT 157 10^3/uL (130-400); WHITE BLOOD COUNT 14.4 10^3/uL (4.3-11.0)
[2020-12-17 03:54] LABS: BILIRUBIN,TOTAL 1.6 MG/DL (0.1-1.0); CALCIUM 7.7 MG/DL (8.5-10.1); CREATININE SERUM 0.77 MG/DL (0.60-1.30); POTASSIUM 3.6 MMOL/L (3.6-5.0)
[2020-12-17 03:55] LABS: ALBUMIN 2.9 GM/DL (3.2-4.5); TOTAL PROTEIN 6.6 GM/DL (6.4-8.2)
[2020-12-17] MEDS ORDERED: VANCOMYCIN 1500 MG/NS 500 ML IVPB IV SCH ×2 (04:00)
[2020-12-17 04:18] LABS: MAGNESIUM 2.2 MG/DL (1.6-2.4); PHOSPHORUS 3.1 MG/DL (2.3-4.7)
[2020-12-17] MEDS: POTASSIUM CL 10MEQ/50ML IVPB 50 ML IV SCH (05:03)
[2020-12-17] MEDS: MAGNESIUM 1 GM/100 ML IVPB 100 ML IV SCH (05:03)
[2020-12-17] MEDS: KCL 20 MEQ TAB (K-DUR) PO SCH (05:04)
[2020-12-17] MEDS ORDERED: POTASSIUM CL 10MEQ/50ML IVPB 50 ML IV SCH (07:00)
[2020-12-17] MEDS ORDERED: PIPERACILLIN/TAZOBACTAM (BULK) 4.5 GM in NS (IVPB) 100 ML IV SCH (07:00)
[2020-12-17] MEDS: LACTULOSE SYRUP 10GM/15ML (ENULOSE) 30ML UDC NG SCH (07:52)
[2020-12-17] MEDS ORDERED: ANIDULAFUNGIN INJECTION 100 MG in NS (IVPB) 100 ML IV SCH (09:00)
[2020-12-17] MEDS ORDERED: ENOXAPARIN 40 MG/0.4 ML (LOVENOX) SYR SC SCH (09:30)
--- NOTE | 2020-12-17 09:30 | Progress Note ---
Subjective Date Seen by a Provider: Dec 17, 2020 Time Seen by a Provider: 09:24 Subjective/Events-last exam Fwup hepatic encephalopathy, DMII, Bipolar, Leukocytosis. Still obtunded. Maybe a little more responsive with opening eyes and grunting or garbling. Focused Exam Lactate Level 12/15/20 01:03: Lactic Acid Level 1.58 Objective Exam Vital Signs Date Time Temp Pulse Resp B/P (MAP) Pulse Ox O2 Delivery O2 Flow Rate FiO2 12/17/20 09:00 99 20 141/82 (101) 91 Room Air 12/17/20 08:00 90 25 140/107 (115) 92 Room Air 12/17/20 08:00 36.7 12/17/20 08:00 Room Air 12/17/20 07:00 109 21 158/78 (126) 96 Room Air 12/17/20 07:00 110 12/17/20 06:00 90 16 131/78 (95) 91 Room Air 12/17/20 05:00 87 16 149/93 (111) 93 Room Air 12/17/20 04:00 Room Air 12/17/20 04:00 90 22 95 Room Air 12/17/20 03:00 111 30 98 Room Air 12/17/20 02:00 90 26 144/78 (100) 94 Room Air 12/17/20 01:00 84 26 136/72 (93) 91 Room Air 12/17/20 01:00 96 12/17/20 00:00 101 25 167/117 (134) 96 Room Air 12/17/20 00:00 Room Air 12/16/20 23:00 87 27 164/74 (104) 93 Room Air 12/16/20 22:00 96 22 152/95 (114) 97 Room Air 12/16/20 22:00 36.9 12/16/20 21:00 84 18 171/77 (108) Room Air 12/16/20 20:00 96 20 169/97 (121) 97 Room Air 12/16/20 20:00 Room Air 12/16/20 19:00 99 12/16/20 19:00 96 26 151/95 (113) 98 Room Air 12/16/20 18:29 37.3 12/16/20 18:00 96 25 142/91 (108) 96 Room Air 12/16/20 17:00 90 24 94 Room Air 12/16/20 16:00 Room Air 12/16/20 16:00 96 25 146/95 (113) 98 Room Air 12/16/20 15:00 98 30 97 Room Air 12/16/20 14:00 93 30 152/92 (97) 96 Room Air 12/16/20 13:00 86 12/16/20 13:00 95 18 124/103 (117) 97 Room Air 12/16/20 12:16 37.0 12/16/20 12:00 Room Air 12/16/20 12:00 87 28 122/84 (97) 98 Room Air 12/16/20 11:00 100 154/84 (107) 88 Room Air 12/16/20 10:00 92 20 131/83 (99) 88 Room Air I & O 12/17/20 07:00 Intake Total 320 ml Output Total 1670 ml Balance -1350 ml Capillary Refill : Less Than 3 Seconds General Appearance: Other (obtunded) Respiratory: Decreased Breath Sounds, Other (some tachypnea) Cardiovascular: Regular Rate, Rhythm Gastrointestinal: normal bowel sounds, non tender, soft Extremity: Non Tender, No Calf Tenderness, No Pedal Edema Neurologic/Psychiatric: Other (obtunded--is opening eyes more) Results Lab Laboratory Tests 12/16/20 12:01: Glucometer 113H 12/16/20 18:14: Glucometer 102 12/17/20 01:56: Glucometer 123H 12/17/20 02:57: White Blood Count 14.4H, Red Blood Count 2.83L, Hemoglobin 9.3L, Hematocrit 29L, Mean Corpuscular Volume 101H, Mean Corpuscular Hemoglobin 33, Mean Corpuscular Hemoglobin Concent 33, Red Cell Distribution Width 17.2H, Platelet Count 157, Mean Platelet Volume 10.7, Immature Granulocyte % (Auto) 1, Neutrophils (%) (Auto) 59, Lymphocytes (%) (Auto) 29, Monocytes (%) (Auto) 9, Eosinophils (%) (Auto) 2, Basophils (%) (Auto) 0, Neutrophils # (Auto) 8.5H, Lymphocytes # (Auto) 4.2H, Monocytes # (Auto) 1.3H, Eosinophils # (Auto) 0.3, Basophils # (Auto) 0.1, Immature Granulocyte # (Auto) 0.1, Sodium Level 142, Potassium Level 3.6, Chloride Level 113H, Carbon Dioxide Level 21, Anion Gap 8, Blood Urea Nitrogen 14, Creatinine 0.77, Estimat Glomerular Filtration Rate 103, BUN/Creatinine Ratio 18, Glucose Level 111H, Calcium Level 7.7L, Corrected Calcium 8.6, Phosphorus Level 3.1, Magnesium Level 2.2, Total Bilirubin 1.6H, Aspartate Amino Transf (AST/SGOT) 50H, Alanine Aminotransferase (ALT/SGPT) 31, Alkaline Phosphatase 97, Ammonia 44H, Total Protein 6.6, Albumin 2.9L Microbiology 12/15/20 Gram Stain - Final, Resulted 12/15/20 CSF Culture - Preliminary, Resulted No growth 12/14/20 MRSA Screen - Final, Complete MRSA not isolated Assessment/Plan Assessment/Plan Assess & Plan/Chief Complaint 1. Hepatic Encephalopathy--on lactulose--ammonia down to 44, Lumbar puncture cultures pending, tick/west nile and heavy metal screens pending--continue doxycycline and acyclovir and eraxis, Check abdominal and liver US 2. Leukocytosis with Right Lung Base Atelectesis vs Infiltrate--continue Zosyn and Vancomycin, repeat CXR, Check ABG 3. DMII--on accuchecks with SSI--stable 4. Hypernatremia--improved after IVF change I attempted to call with update today but went to voicemail--they had requested a transfer to [place] Friday eveining--I did tell them that if a bed was available that far away that he would need either a private ambulance or air ambulance to go that far, we also discussed that transfers closer by are very hard to find right now due to COVID but will make a one call today to try to find a facility with both neurology and GI that could take the patient LAURA WIGGINS Mckenna DO Dec 17, 2020 09:30
[2020-12-17 10:20] LABS: ABG BASE EXCESS -2.5 MMOL/L (-2.5-2.5); ABG OXYGEN SATURATION 97 % (94-100); ABG PCO2 32 MMHG (35-45); ABG PH 7.43 (7.37-7.43); ABG PO2 77 MMHG (79-93); ABG TCO2 22.2 MMOL/L (21.0-31.0)
[2020-12-17 10:27] LABS: ALLENS TEST YES-POS; INSPIRED O2 ROOM AIR; PATIENT TEMP 36.7; VENTILATOR NO
--- NOTE | 2020-12-17 12:31 | Diagnostic Imaging Report ---
INDICATION: NG tube placement. TIME OF EXAM: 11:48 AM NG tube passes below the diaphragm and appears to be located in the gastric body. Right hemidiaphragm is elevated. There is subsegmental atelectasis right base. Left lung is clear. IMPRESSION: NG tube placement, as described. Dictated by: Dictated on workstation # [id number]
--- NOTE | 2020-12-17 15:22 | Discharge Summary ---
Diagnosis/Chief Complaint Date of Admission Dec 14, 2020 at 18:40 Date of Discharge Dec 17, 2020 at 13:15 Discharge Diagnosis 1. Hepatic Encephalopathy with ongoing altered mental status--on lactulose--ammonia down to 44, Lumbar puncture cultures pending, tick/west nile and heavy metal screens pending--continue doxycycline and acyclovir and eraxis, transfer to [facility] for neurology and GI consults 2. Leukocytosis/Sepsis with Right Lung Base Atelectesis vs Infiltrate--continue Zosyn and Vancomycin 3. DMII--on accuchecks with SSI--stable 4. Hypernatremia--improved after IVF change 5. Acute Anemia 6. Bipolar Discharge Summary Hospital Course Was the Problem List Reviewed?: Yes Hospital Course This is a 60 year old male transferred from [facility] for possible stroke. He was noted to be acting oddly the day before his presentation and then became worse and more confused over the next 24hrs. Stroke protocol was activated in the emergency room but CT of the brain as well as CTA of the head and neck were noted. His family did note that he was to see a GI specialist in the near future so an ammonia level was done which was elevated. MRI of the brain showed a diffuse T1 weighted signal consistent with hepatic encephalopathy. His WBC count was also elevated and his family reported that he had passed black stools prior to admission and was complaining of some abdominal pain. The family denied any alcohol use but apparently the patient has a previous history of both drug and alcohol abuse--his drug screen and alcohol levels were normal on admit. He was admitted to the ICU and started on empiric antibiotic treatment. He underwent a lumbar puncture to rule out meningitis. He was started on lactulose for his ammonia level but was unable to take orals so an OG tube was placed to administer this. Critical Care/Pulmonology was consulted via eICU. Tick titers were drawn and the patient was started on doxycycline to cover for possible tick etiology. He was also started on acyclovir post lumbar puncture. The family requested transfer of the patient less then 24hrs after admission however, at that time due to the current COVID- 19 outbreak, beds within driving or flying distance were not available. They had requested he be transported to [facility] in [place] but transportation to this facility was the issue--I offered that we could look into a private ambulance or air amubulance but discussed the [facility] with them and that was not an option. I explained that his lumbar puncture cultures, tick titers, West Nile and heavy metal screens were all pending. On the second hospital day, he was trying to open his eyes and was mumbling yes and no. His WBC count had gone up even more so his antibiotics were adjusted to include Vancomycin, Zosyn and Doxycycline and he was continued on acylcovir. Eraxis was also added for fungal etiology. By the following hospital day, his WBC count was trending down to 14,000. His ammonia was down to 44. His billirubin had increased to 1.6 but his AST and ALT were low normal. He was a little bit more responsive but still with only garbled answers and grunting and withdrawal from painful stimuli. We activated a one call system to see if there was a nearby bed availability at a facility that had both neurology and gastroenterology. [facility] did have an ICU bed available and they did accept the patient and arrange for transportation. The family was in agreement with this plan and the patient was transferred via [employer] [facility]. Labs Laboratory Tests 12/14/20 15:42: Salicylates Level < 5.0L, Acetaminophen Level < 10L 12/14/20 15:47: Potassium Level 5.2H, Chloride Level 111H, Carbon Dioxide Level 17L, Blood Urea Nitrogen 24H, Glucose Level 127H, Calcium Level 8.4L, Total Bilirubin 1.1H, Aspartate Amino Transf (AST/SGOT) 45H, Ammonia 136H 12/14/20 15:57: Glucometer 114H 12/14/20 15:58: Urine Specific [place] 1.010L, Urine Ketones TRACEH, Urine RBC (Auto) 2+H, Urine RBC 5-10H 12/14/20 17:00: White Blood Count 13.7H, Red Blood Count 3.42L, Hemoglobin 11.3L, Hematocrit 33L , Red Cell Distribution Width 16.4H, Neutrophils # (Auto) 9.2H, Prothrombin Time 18.3H, INR Comment 1.5H, D-Dimer 1.73H 12/14/20 20:00: 12/14/20 20:09: 12/14/20 21:47: Glucometer 140H 12/15/20 00:12: Glucometer 126H 12/15/20 01:03: 12/15/20 03:35: White Blood Count 16.3H, Red Blood Count 3.10L, Hemoglobin 10.0L, Hematocrit 30L , Red Cell Distribution Width 16.6H, Neutrophils # (Auto) 10.6H, Monocytes # (Auto) 1.4H, Prothrombin Time 18.6H, INR Comment 1.5H, Chloride Level 113H, Carbon Dioxide Level 18L, Blood Urea Nitrogen 21H, Glucose Level 135H, Calcium Level 8.1L, Total Bilirubin 1.1H, Ammonia 103H, Albumin 3.1L, HDL Cholesterol 21L 12/15/20 10:20: CSF RBC 31H 12/15/20 10:42: Glucometer 111H 12/15/20 15:50: 12/15/20 16:50: Arterial Blood Partial Pressure CO2 33L, Arterial Blood Partial Pressure O2 68L, Arterial Blood HCO3 21L, Arterial Blood Oxygen Saturation 93L, Arterial Blood Base Excess -3.1L 12/15/20 18:12: Glucometer 136H 12/15/20 23:30: Glucometer 138H 12/16/20 02:00: Stool Occult Blood Immunoassay POSITIVEH 12/16/20 03:34: Sodium Level 148H, Chloride Level 117H, Carbon Dioxide Level 17L, Glucose Level 140H, Calcium Level 7.9L 12/16/20 03:41: White Blood Count 17.3H, Red Blood Count 2.90L, Hemoglobin 9.6L, Hematocrit 29L, Red Cell Distribution Width 16.8H, Neutrophils # (Auto) 11.5H, Monocytes # (Auto) 1.5H 12/16/20 06:10: 12/16/20 12:01: Glucometer 113H 12/16/20 18:14: 12/17/20 01:56: Glucometer 123H 12/17/20 02:57: White Blood Count 14.4H, Red Blood Count 2.83L, Hemoglobin 9.3L, Hematocrit 29L, Mean Corpuscular Volume 101H, Red Cell Distribution Width 17.2H, Neutrophils # (Auto) 8.5H, Lymphocytes # (Auto) 4.2H, Monocytes # (Auto) 1.3H, Chloride Level 113H, Glucose Level 111H, Calcium Level 7.7L, Total Bilirubin 1.6H, Aspartate Amino Transf (AST/SGOT) 50H, Ammonia 44H, Albumin 2.9L 12/17/20 10:03: Arterial Blood Partial Pressure CO2 32L, Arterial Blood Partial Pressure O2 77L, Arterial Blood HCO3 21L 12/17/20 10:05: Procedures None. Consultations eICU Discharge Physical Examination Allergies: Coded Allergies: No Known Drug Allergies (Unverified , 09/03/16) Vitals & I&Os Vital Signs Date Time Temp Pulse Resp B/P (MAP) Pulse Ox O2 Delivery O2 Flow Rate FiO2 12/17/20 12:00 Room Air 12/17/20 12:00 126 22 165/92 (116) 93 12/17/20 08:00 36.7 12/16/20 04:00 94.00 General Appearance: Other (obundeded) Respiratory: Clear to Auscultation Cardiovascular: Regular Rate Abdominal: Normal Bowel Sounds, Soft Extremities: No Clubbing, No Cyanosis, No Edema Psych/Mental Status: Other (obtunded) Discharge Home Medications Reviewed and agree with Discharge Medication list on patient's Discharge Instruction sheet Instructions to Patient/Family Please see electronic discharge instructions given to patient. LAURA WIGGINS DO Dec 17, 2020 15:22
== END 2020-12-17 13:15 | disposition short-term general hospital (02) | DRG 441 ==
LOC: EDUNIT# 14:04 → ER 14:06 → ICU 18:40
PROVIDERS: ADMIT Family Medicine; ATTEND Family Medicine
PROC: 009U3ZX Drainage of Spinal Canal, Percutaneous Approach, Diagnostic (ICD-10-PCS; principal; 2020-12-15)
DX: K72.90 Hepatic failure, unspecified without coma (principal); A41.9 Sepsis, unspecified organism; J98.11 Atelectasis; K92.1 Melena; E87.0 Hyperosmolality and hypernatremia; R91.8 Other nonspecific abnormal finding of lung field; K76.0 Fatty (change of) liver, not elsewhere classified; E11.9 Type 2 diabetes mellitus without complications; N40.1 Benign prostatic hyperplasia with lower urinary tract symptoms; R33.8 Other retention of urine; K21.9 Gastro-esophageal reflux disease without esophagitis; F41.9 Anxiety disorder, unspecified; F31.9 Bipolar disorder, unspecified; H54.7 Unspecified visual loss; D64.9 Anemia, unspecified; Z20.822 Contact with and (suspected) exposure to COVID-19; Z79.82 Long term (current) use of aspirin; Z81.8 Family history of other mental and behavioral disorders
CPT/HCPCS: 36415; 51702; 70450; 70496; 70498; 70553; 71045; 74177; 80048; 80053; 80061; 80202; 80306; 80320; 80329; 81000; 82140; 82150; 82175; 82274; 82607; 82746; 82805; 82945; 82947; 83036; 83605; 83655; 83690; 83735; 83825; 84100; 84157; 84443; 84484; 85007; 85025; 85027; 85379; 85610; 85730; 86141; 86618; 86666; 86668; 86703; 86757; 86788; 86789; 87070; 87081; 87205; 87636; 89051; 93005; 93041

== ENCOUNTER → 2021-01-10 | Outpatient (CLI) | payer BC ==
[~2021-01-10] VITALS: Ht 185.4 cm; Wt 122.7 kg
[~2021-01-10] MED LIST changes: +ACET-2267 PO; +ASPI-789 PO; +FINA5TAB6 PO; +GLIP5TAB13 PO; +IBUP-1773 PO; +IBUP-2185 PO; +QUET200T29 PO; +TMSL.4C PO; +VILA40TA PO
[2021-01-10 13:17] LABS: ABSOLUTE RETIC # 66 10e9/uL (24-90); BASOPHILS % (AUTO) 0 % (0-10); EOSINOPHILS # (AUTO) 0.3 10^3/uL (0.0-0.3); EOSINOPHILS % (AUTO) 7 % (0-10); HEMATOCRIT 29 % (40-54); HEMOGLOBIN 8.8 g/dL (13.3-17.7); LYMPHOCYTES # (AUTO) 1.1 10^3/uL (1.0-4.0); LYMPHOCYTES % (AUTO) 25 % (12-44); MEAN CORPUSCULAR HEMOGLOBIN 30 pg (25-34); MEAN CORPUSCULAR HGB CONC 31 g/dL (32-36); MEAN CORPUSCULAR VOLUME 96 fL (80-99); MEAN PLATELET VOLUME 9.7 fL (9.0-12.2); MONOCYTES # (AUTO) 0.4 10^3/uL (0.0-1.0); MONOCYTES % (AUTO) 9 % (0-12); NEUTROPHILS # (AUTO) 2.7 10^3/uL (1.8-7.8); NEUTROPHILS % (AUTO) 59 % (42-75); PLATELET COUNT 217 10^3/uL (130-400); RETICULOCYTE % 2.21 % (0.50-2.40); WHITE BLOOD COUNT 4.5 10^3/uL (4.3-11.0)
[2021-01-10 13:28] LABS: INR 1.5 (0.8-1.4); PROTHROMBIN TIME PATIENT 18.4 SEC (12.2-14.7)
[2021-01-10 13:59] LABS: BAND NEUTROPHILS 0 %; BASOPHILS % (MANUAL) 0 %; EOSINOPHILS % (MANUAL) 4 %; HYPOCHROMASIA MODERATE; LYMPHOCYTES % (MANUAL) 21 %; MONOCYTES % (MANUAL) 7 %; NEUTROPHILS % (MANUAL) 68 %; POLYCHROMASIA SLIGHT
[2021-01-10 14:00] LABS: ANISOCYTOSIS MARKED; TARGET CELLS SLIGHT
[2021-01-10] MEDS: ALBUMIN 25% 25 GM/100 ML 100 ML IV ONE (14:30)
--- NOTE | 2021-01-10 15:22 | Diagnostic Imaging Report ---
INDICATION: Ascites. Patient presents for ultrasound guided paracentesis. DETAILS OF THE PROCEDURE: The patient was brought to the procedure room and placed on the table in the supine position. Ultrasound imaging was performed to evaluate for an appropriate entry site. The right lower quadrant was then prepped and draped in the usual sterile fashion. A small amount 1% lidocaine was utilized for local anesthesia. A paracentesis catheter was advanced and placed with its tip in the right lower quadrant peritoneal space. A total of 6500 mL of fluid was removed. The catheter was withdrawn and hemostasis was obtained. The patient tolerated the procedure well and left the Department in stable condition. IMPRESSION: Successful ultrasound guided paracentesis obtaining 6500 mL of fluid. Dictated by: Dictated on workstation # [id number]
== END ==
LOC: RAD 13:00
PROVIDERS: ATTEND Family Medicine
DX: K74.60 Unspecified cirrhosis of liver (principal)
CPT/HCPCS: 49083; 85007; 85027; 85045; 85055; 85610; 87070; 87075; 87205; A7048; 36415

== ENCOUNTER → 2021-01-31 | Outpatient (CLI) | payer BC ==
[~2021-01-31] VITALS: Ht 185.4 cm; Wt 122.7 kg
[~2021-01-31] MED LIST changes: +ALBUMIN 25% 25 GM/100 ML 100 ML IV ONE
[2021-01-31 13:56] LABS: INR 1.3 (0.8-1.4); PROTHROMBIN TIME PATIENT 16.8 SEC (12.2-14.7)
--- NOTE | 2021-01-31 15:33 | Diagnostic Imaging Report ---
INDICATION: Ascites. EXAMINATION: Patient presents for ultrasound-guided paracentesis. PROCEDURE: Patient was brought to the procedure room and placed on the table in the supine position. Ultrasound imaging of the abdomen was performed to evaluate appropriate entry site. Right abdomen was then prepped and draped in the usual sterile fashion. Small amount of 1% lidocaine was utilized for local anesthesia. Paracentesis catheter was advanced and placed into the right lower quadrant peritoneal space. A total of 6800 mL of fluid was removed. Catheter was removed and hemostasis was obtained using manual compression. Patient tolerate the procedure well and left the department in stable condition. IMPRESSION: Successful ultrasound-guided paracentesis obtaining 6800 mL of fluid. Dictated by: Dictated on workstation # [id number]
== END ==
LOC: RAD 14:00
PROVIDERS: ATTEND Family Medicine
DX: K74.60 Unspecified cirrhosis of liver (principal); R18.8 Other ascites
CPT/HCPCS: 49083; 85610; A7048; 36415

== ENCOUNTER 2021-03-21 05:36 | Outpatient (CLI) | payer BC ==
[~2021-03-21] VITALS: Ht 180.3 cm; Wt 106.5 kg
[~2021-03-21 05:36] MED LIST changes: -ALBUMIN 25% 25 GM/100 ML 100 ML IV ONE
[2021-03-21] MEDS ORDERED: SPIR100T4 PO (10:53)
[2021-03-21] MEDS ORDERED: FURO40TA4 PO (10:53)
[2021-03-21] MEDS ORDERED: RIFA550T PO (10:53)
[2021-03-21] MEDS ORDERED: OXYC5CAP18 PO (10:59)
== END 2021-03-21 11:23 | disposition home or self-care (01) ==
LOC: PREOP 05:36
PROVIDERS: ATTEND Surgery
DX: Z01.818 Encounter for other preprocedural examination (principal)

== ENCOUNTER 2021-03-28 10:07 | Day surgery (SDC) | payer BC ==
[~2021-03-28] VITALS: Ht 180.3 cm; Wt 106.5 kg
[2021-03-28] VITALS (7 sets, daily range): BP systolic 102–120; BP diastolic 58–87
[~2021-03-28 10:07] MED LIST changes: +FURO40TA4 PO; +OXYC5CAP18 PO; +RIFA550T PO; +SPIR100T4 PO
[2021-03-28] MEDS ORDERED: LACTATED RINGERS 1,000 ML IV ONE (10:14)
[2021-03-28] MEDS ORDERED: LACTATED RINGERS 1,000 ML IV STA (10:16)
[2021-03-28] MEDS ORDERED: ONDANSETRON 4 MG (ZOFRAN) ORAL DISSOLVE TAB PO PRN (10:30)
[2021-03-28] MEDS ORDERED: ONDANSETRON 4 MG/2 ML (SDV) Z0FRAN IVP PRN (10:30)
[2021-03-28] MEDS ORDERED: LIDOCAINE JELLY 2% 6 ML SYRINGE MM PRN (10:30)
--- NOTE | 2021-03-28 10:30 | Conscious Sedation/ASA ---
Conscious Sedation Pre-Proced Time 10:30 ASA Score 2 For ASA 3 and 4: Consider anesthesia and medical clearance. Also, for patients with a history of failed moderate sedation consider anesthesia. Airway Lungs Heart ASA score ASA 1: a normal healthy patient ASA 2: a patient with a mild systemic disease (mid diabetes, controlled hypertension, obesity ASA 3: a patient with a severe systemic disease that limits activity (angina, COPD, prior Myocardial infarction) ASA 4: a patient with an incapacitating disease that is a constant threat to life (CHF, renal failure) ASA 5: a moribund patient not expected to survive 24 hrs. (ruptured aneurysm) ASA 6: a declared brain- patient whose organs are being harvested. For emergent operations, add the letter E after the classification Mallampati Classification Grade 2 Sedation Plan Analgesia, Amnesia, Plan communicated to team members, Discussed options with patient/fam, Discussed risks with patient/fam The patient is an appropriate candidate to undergo the planned procedure, sedation, and anesthesia. The patient immediately re-assessed prior to indication. JASKARAN MORENO MD Mar 28, 2021 10:30
--- NOTE | 2021-03-28 10:30 | Progress Note-Pre Operative ---
Pre-Operative Progress Note H&P Reviewed The H&P was reviewed, patient examined and no changes noted. Date Seen by Provider: Mar 28, 2021 Time Seen by Provider: 10:30 Date H&P Reviewed: Mar 28, 2021 Time H&P Reviewed: 10:30 Pre-Operative Diagnosis: screening JASKARAN Samano MD Mar 28, 2021 10:30
--- NOTE | 2021-03-28 10:31 | Discharge Inst-Surgical ---
D/C Lap Instructions-TIFFANIE Follow Up Activity as tolerated High Fiber Diet 25g or more per day Avoid Alcohol, Caffeine, Spicy [place] and Acid foods. Drink 64 fluid oz or more of fluids per day. Symptoms to Report: Fever over 101 degree F, Nausea/Vomiting If any problems/questions: Contact your physician or go to Emergency Room JASKARAN MORENO MD Mar 28, 2021 10:31
[2021-03-28] MEDS ORDERED: MIDAZOLAM 2 MG/2 ML (VERSED) VIAL ONE (11:23)
[2021-03-28] MEDS ORDERED: PROPOFOL INJECTION 50 ML IV ONE (11:23)
--- NOTE | 2021-03-28 12:08 | Progress Note-Post Operative ---
Post-Operative Progess Note Surgeon (s)/Director Manufacturing Engineering (s) Surgeon JASKARAN MORENO MD Director Manufacturing Engineering: none Pre-Operative Diagnosis screening colo Post-Operative Diagnosis mild chronic stage 1-2 ext and int hemorrhoids. Procedure & Operative Findings Date of Procedure 03/28/21 Procedure Performed/Findings colonoscopy Anesthesia Type mac Estimated Blood Loss Estimated blood loss (mL): minimal Specimens/Packing Specimens Removed none JASKARAN MORENO MD Mar 28, 2021 12:08
--- NOTE | 2021-03-28 13:56 | Anesthesia-General Post-Op ---
MAC Patient Condition Mental Status/LOC: Same as Preop Cardiovascular: Satisfactory Nausea/Vomiting: Absent Respiratory: Satisfactory Pain: Controlled Complications: Absent Post Op Complications Complications None Follow Up Care/Instructions Patient Instructions None needed. Anesthesiology Discharge Order Discharge Order Patient is doing well, no complaints, stable vital signs, no apparent adverse anesthesia problems. No complications reported per nursing. CHEN NARVAEZ CRNA Mar 28, 2021 13:55
--- NOTE | 2021-03-28 18:28 | OPERATIVE REPORT ---
DATE OF SERVICE: 03/28/2021 ATTENDING PRIMARY CARE PHYSICIAN: Brea Damian MD PREOPERATIVE DIAGNOSIS: Screening colonoscopy. POSTOPERATIVE DIAGNOSIS: Mild chronic stage II external and internal hemorrhoids. PROCEDURE: Colonoscopy. SURGEON: Jaskaran Moreno MD. ANESTHESIA: Monitored anesthesia care. ESTIMATED BLOOD LOSS: Minimal. FINDINGS: Same as postoperative diagnosis. DISPOSITION: The patient tolerated the procedure well. INDICATIONS: The patient is a 60-year-old male known to us. He has a history of gastroesophageal reflux disease and we had done an EGD and colonoscopy on him in 04/2012. He also developed chronic acalculous cholecystitis and underwent a laparoscopic cholecystectomy on 09/05/2016. He reports he is in need of a screening colonoscopy. His last colonoscopy was 10 years ago and he believes this to be normal. He does not report any major issues with diarrhea nor constipation as well as no red blood per rectum, no dark tarry stools. He also does not report any family history of colon cancer. DESCRIPTION OF PROCEDURE: The patient was brought to the endoscopy suite, laid in the left lateral decubitus position. After adequate IV pain and sedative medications and conscious and monitored anesthesia care, a digital rectal examination was performed. Mild chronic stage II external and internal hemorrhoids were identified, which were not actively edematous nor inflamed and no bleeding. Normal sphincter tone was felt and there were no palpable masses. Prostate gland was palpable and appeared normal. The endoscope was then intubated into the anus and rectum gently insufflated. The endoscope was then advanced through the valves of Jorge of the rectum with no polyps or any neoplasms identified. Through the sigmoid colon, no diverticulosis identified. The endoscope was then advanced to the remainder of the descending, transverse and ascending colon to the cecum, no polyps or any neoplasms identified. The endoscope was then slowly withdrawn while taking a second look and suctioning of residual air with no additional findings. The patient tolerated the procedure well. We will recommend continued medical management with a high-fiber diet with a fiber supplement, which should equal or exceed 30 grams daily as well as significant amounts of water to promote soft stools on a daily basis. If he is asymptomatic, he does not need another colonoscopy for another 10 years. Job ID: [id number] DocumentID: [id number] Dictated Date: 03/28/2021 12:03:01 Chief Substation Operator Date: 03/28/2021 18:27:56 Dictated By: JASKARAN MORENO MD
== END 2021-03-28 12:47 | disposition home or self-care (01) ==
LOC: ENDO 10:07
PROVIDERS: ATTEND Surgery
DX: Z12.11 Encounter for screening for malignant neoplasm of colon (principal); K64.1 Second degree hemorrhoids; K21.9 Gastro-esophageal reflux disease without esophagitis; E03.9 Hypothyroidism, unspecified; E11.9 Type 2 diabetes mellitus without complications; F41.9 Anxiety disorder, unspecified; F31.9 Bipolar disorder, unspecified; Z79.84 Long term (current) use of oral hypoglycemic drugs; Z79.899 Other long term (current) drug therapy

== ENCOUNTER → 2021-04-05 | Outpatient (CLI) | payer BC | LOC: RAD 12:30 | PROVIDERS: ATTEND Nurse Practitioner Family | DX: Z53.9 Procedure and treatment not carried out, unspecified reason (principal) ==

== ENCOUNTER → 2021-10-23 | Outpatient (CLI) | payer BC ==
[~2021-10-23] MED LIST changes: -ASPI-789 PO; +ASPI1TAB23 PO
--- NOTE | 2021-10-23 11:30 | Diagnostic Imaging Report ---
INDICATION: Hepatic cirrhosis. PROCEDURE: Ultrasound abdomen complete. TECHNIQUE: Multiple Real-time grayscale images were obtained of the abdomen in various projections. COMPARISON: CT of 12/14/2020. FINDINGS: The liver is somewhat heterogeneously echogenic which may reflect its changes of reported cirrhosis. The hepatic capsular surface shows some very slight undulation, likely also reflective of cirrhosis. No appreciable liver mass. The portal vein is patent and shows normal hepatopetal directional flow and normal pulsatility. The gallbladder is absent. No pathological biliary ductal dilatation. The pancreas is largely obscured by gas as was much of the aorta and IVC. The unobstructed kidneys are normal in size, cortical thickness, and echotexture measuring 10.6 cm on the right and 12.7 cm on the left. The hepatic veins are patent. There is no ascites. IMPRESSION: The findings in the liver may reflect underlying cirrhosis but no liver mass or acute biliary pathology post cholecystectomy. There is no ascites with patent hepatopetal portal vein and a normal spleen size of 10.7 cm. Dictated by: Dictated on workstation # [id number]
== END ==
LOC: RAD 10:00
PROVIDERS: ATTEND Internal Medicine Gastroenterology
DX: K74.60 Unspecified cirrhosis of liver (principal)
CPT/HCPCS: 36415; 76700; 82105

== ENCOUNTER → 2022-04-24 | Outpatient (CLI) | payer BC ==
[2022-04-24 12:17] LABS: INR 1.3 (0.8-1.4); PROTHROMBIN TIME PATIENT 16.9 SEC (12.2-14.7)
[2022-04-24 12:24] LABS: ALBUMIN 3.2 GM/DL (3.2-4.5); BILIRUBIN,TOTAL 0.6 MG/DL (0.1-1.0); CALCIUM 8.6 MG/DL (8.5-10.1); CREATININE SERUM 0.89 MG/DL (0.60-1.30); POTASSIUM 3.8 MMOL/L (3.6-5.0); TOTAL PROTEIN 6.4 GM/DL (6.4-8.2)
--- NOTE | 2022-04-24 13:50 | Diagnostic Imaging Report ---
PROCEDURE: CT abdomen with and without contrast. TECHNIQUE: Multiple contiguous axial CT images of the abdomen were obtained prior to and after intravenous administration of iodinated contrast. Auto Exposure Controls were utilized during the CT exam to meet ALARA standards for radiation dose reduction. INDICATION: Hepatic cirrhosis. Study is performed as evaluation prior to liver transplantation. FINDINGS: Pre and postcontrast CT imaging of the abdomen is performed. Comparison is made to study of 12/14/2020. Similar to the previous study, there is elevation of the right hemidiaphragm with distortion of hepatic morphology. There is micronodular surface contour to the liver however no discrete mass is identified. Gallbladder is surgically absent without evidence of biliary ductal dilatation. There are prominent perihepatic venous collaterals with collaterals also seen along the mesentery and adjacent to the spleen. No definite pancreatic, adrenal gland or splenic lesions identified. Kidneys are also unremarkable. There is no ascites. No appendiceal inflammation is identified. There is mild compression deformity at T11 vertebral body. IMPRESSION: Hepatic cirrhosis and portal venous hypertension without focal mass lesion or biliary ductal dilatation identified. Findings remain stable apart from mild compression fracture at T11 vertebral body. Dictated by: Dictated on workstation # [id number]
== END ==
LOC: RAD 11:45
DX: K74.60 Unspecified cirrhosis of liver (principal); K75.81 Nonalcoholic steatohepatitis (NASH); K76.6 Portal hypertension; M48.54XA Collapsed vertebra, not elsewhere classified, thoracic region, initial encounter for fracture
CPT/HCPCS: 36415; 74170; 80053; 85610

== ENCOUNTER → 2022-07-15 | Outpatient (CLI) | payer BC | LOC: CARD 14:07 | DX: I35.1 Nonrheumatic aortic (valve) insufficiency (principal) | CPT/HCPCS: 93306 ==

== ENCOUNTER → 2022-07-24 | Outpatient (CLI) | payer BC ==
[2022-07-24 15:53] LABS: BASOPHILS % (AUTO) 0 % (0-10); EOSINOPHILS # (AUTO) 0.5 10^3/uL (0.0-0.3); EOSINOPHILS % (AUTO) 8 % (0-10); HEMATOCRIT 39 % (40-54); HEMOGLOBIN 12.8 g/dL (13.3-17.7); LYMPHOCYTES # (AUTO) 1.7 X 10^3 (1.0-4.0); LYMPHOCYTES % (AUTO) 26 % (12-44); MEAN CORPUSCULAR HEMOGLOBIN 33 pg (25-34); MEAN CORPUSCULAR HGB CONC 33 g/dL (32-36); MEAN CORPUSCULAR VOLUME 101 fL (80-99); MEAN PLATELET VOLUME 9.6 fL (9.0-12.2); MONOCYTES # (AUTO) 0.6 X 10^3 (0.0-1.0); MONOCYTES % (AUTO) 9 % (0-12); NEUTROPHILS # (AUTO) 3.7 X 10^3 (1.8-7.8); NEUTROPHILS % (AUTO) 56 % (42-75); PLATELET COUNT 145 10^3/uL (130-400); WHITE BLOOD COUNT 6.6 10^3/uL (4.3-11.0)
[2022-07-24 16:22] LABS: INR 1.3 (0.8-1.4); PROTHROMBIN TIME PATIENT 16.9 SEC (12.2-14.7)
[2022-07-24 16:23] LABS: ALBUMIN 3.2 GM/DL (3.2-4.5); BILIRUBIN,TOTAL 0.6 MG/DL (0.1-1.0); CALCIUM 9.4 MG/DL (8.5-10.1); CREATININE SERUM 0.88 MG/DL (0.60-1.30); POTASSIUM 4.3 MMOL/L (3.6-5.0); TOTAL PROTEIN 6.4 GM/DL (6.4-8.2)
== END ==
LOC: LAB 15:27
PROVIDERS: ATTEND Internal Medicine Transplant Hepatology
DX: K75.81 Nonalcoholic steatohepatitis (NASH) (principal)
CPT/HCPCS: 36415; 80053; 82105; 84446; 84590; 85025; 85610

== ENCOUNTER 2022-09-16 01:04 | Emergency (ER) | payer BC ==
[~2022-09-16] VITALS: Ht 185.5 cm; Wt 97.5 kg
[2022-09-16] MEDS ORDERED: NITROGLYCERIN 2% OINT 1 GM UNIT DOSE PACKET TOP STA (01:17)
[2022-09-16] MEDS ORDERED: LIDOCAINE 2% VISCOUS 15 ML UDC PO ONE (01:30)
[2022-09-16] MEDS ORDERED: ASPIRIN 81 MG CHEW (CHILDREN'S ASA) PO ONE (01:30)
[2022-09-16] MEDS ORDERED: ANTACID SUSP 30 ML UDC (MYLANTA) PO ONE (01:30)
[2022-09-16] MEDS ORDERED: PANTOPRAZOLE 40 MG (PROTONIX) VIAL IV ONE (01:30)
[2022-09-16 01:31] LABS: BASOPHILS % (AUTO) 1 % (0-10); EOSINOPHILS # (AUTO) 0.2 10^3/uL (0.0-0.3); EOSINOPHILS % (AUTO) 3 % (0-10); HEMATOCRIT 40 % (40-54); HEMOGLOBIN 13.7 g/dL (13.3-17.7); LYMPHOCYTES # (AUTO) 1.9 10^3/uL (1.0-4.0); LYMPHOCYTES % (AUTO) 25 % (12-44); MEAN CORPUSCULAR HEMOGLOBIN 33 pg (25-34); MEAN CORPUSCULAR HGB CONC 34 g/dL (32-36); MEAN CORPUSCULAR VOLUME 96 fL (80-99); MEAN PLATELET VOLUME 9.7 fL (9.0-12.2); MONOCYTES # (AUTO) 0.5 10^3/uL (0.0-1.0); MONOCYTES % (AUTO) 7 % (0-12); NEUTROPHILS # (AUTO) 4.8 10^3/uL (1.8-7.8); NEUTROPHILS % (AUTO) 64 % (42-75); PLATELET COUNT 164 10^3/uL (130-400); WHITE BLOOD COUNT 7.5 10^3/uL (4.3-11.0)
[2022-09-16 01:42] LABS: ALBUMIN 3.5 GM/DL (3.2-4.5); CHLORIDE 108 MMOL/L (98-107); POTASSIUM 3.2 MMOL/L (3.6-5.0); SODIUM 141 MMOL/L (135-145)
[2022-09-16 01:43] LABS: AMYLASE 63 U/L (25-125); CALCIUM 9.1 MG/DL (8.5-10.1)
[2022-09-16 01:44] LABS: AMMONIA 29 UMOL/L (11-32); GLUCOSE 93 MG/DL (70-105)
[2022-09-16 01:46] LABS: BILIRUBIN,TOTAL 0.9 MG/DL (0.1-1.0); CARBON DIOXIDE 21 MMOL/L (21-32)
[2022-09-16 01:47] LABS: FIBRIN DEGRADATION PRODUCTS 0.24 UG/ML (0.00-0.49); INR 1.4 (0.8-1.4)
[2022-09-16 01:48] LABS: ALKALINE PHOSPHATASE 87 U/L (40-136); CREATININE SERUM 0.87 MG/DL (0.60-1.30); GFR ESTIMATED 99
[2022-09-16 01:49] LABS: BUN/CREATININE RATIO 7
[2022-09-16 01:51] LABS: ALANINE AMINOTRANSFERASE 19 U/L (0-55); MAGNESIUM 1.8 MG/DL (1.6-2.4)
[2022-09-16 01:52] LABS: CREATINE KINASE 198 U/L (30-200); LIPASE 18 U/L (8-78)
[2022-09-16 01:59] LABS: CREATINE KINASE MB 1.7 NG/ML (<6.6)
--- NOTE | 2022-09-16 02:22 | ED General ---
General Chief Complaint: Chest Wall Stated Complaint: CHEST & ABD PAIN Nursing Triage Note: PT AMB TO [facility] 5 W C/O CP, ABD PAIN, ESOPHAGEAL BURNING, SORE THROAT, AND DIARRHEA X5 DAYS. REPEATS HE'S TAKEN ALL OF HIS OXYCODONE D/T PAIN. PT REPORTS TERMINAL DX W 1 YEAR TO LIVE D/T LIVER FAILURE. PT A&OX4. Source of Information: Patient History of Present Illness Date Seen by Provider: September 16, 2022 Time Seen by Provider: 01:13 Initial Comments PT ARRIVES VIA POV FROM HOME WITH C/O CHEST PAIN AND ABDOMINAL PAIN X 5 DAYS PAIN IS A BURNING SENSATION AND GOES INTO HIS THROAT--STATES IT IS SEVERE ACID REFLUX AND HIS ESOPHAGUS AND THE BACK OF HIS THROAT FEEL LIKE THEY ARE ON FIRE. HE HAS HAD A SORE THROAT, AND SORE MOUTH AND LIPS--LIPS HAVE BEEN DRY AND HE BEEN CONSTANTLY LICKING HIS LIPS AND NOW HAS SORES ON HIS LIPS AND HAS BEEN USING ORAJEL ON HIS LIPS AND IN HIS MOUTH HE HAS HAD DIARRHEA, BUT NO NAUSEA/VOMITING NO FEVER HE IS URINATING A NORMAL AMOUNT NO SHORTNESS OF BREATH NO SWELLING IN LEGS/FEET OR PAIN IN CALVES. NO DIZZINESS OR SYNCOPE NO SWEATS NO PALPITATIONS PAIN IS MOSTLY IN MID STERNUM AND IS A SEVERE BURNING IN HIS CHEST, RATES PAIN 01/26--HE HAS BEEN RUBBING "BIOFREEZE" ON HIS CHEST HE ALSO HAS SEVERE CHRONIC ABDOMINAL PAIN AND TAKES OXYCODONE 10 MG 6 TIMES A DAY--HE RAN OUT YESTERDAY MORNING / Friday09/14/22 HE HAS "TERMINAL" LIVER FAILURE HE HAS BEEN TO [place] ALL THIS PAST WEEK GETTING EVALUATED FOR A LIVER TRANSPLANT--JUST GOT HOME HE HAS AN APPOINTMENT /Friday09/16/22 AT TO GET EVALUATED THERE FOR A LIVER TRANSPLANT. TO BE THERE FOR 3 DAYS GETTING EVALUATED. PT HAS ESOPHAGEAL VARICES, AND HAD AN EGD LAST MONTH BY DR. ABREU AT [facility] AND PT REPORTS "THEY LOOKED GOOD" THEN HE HAS NOT HAD ANY VOMITING OR HEMATEMESIS OR BLACK/BLOODY/TARRY STOOLS HE DENIES ANY HISTORY OF HEART PROBLEMS PT STATES HE HAS NEVER SMOKED, NEVER DRANK, NEVER USED DRUGS ( OLD RECORDS REPORT HISTORY OF OPIATE ABUSE) HE HAS HAD COVID VACCINE X 2 PCP:DR. MIRAMONTES Allergies and Home Medications Allergies Coded Allergies: No Known Drug Allergies (Verified , 03/28/21) Patient Home Medication List Home Medication List Reviewed: Yes Furosemide (Furosemide) 40 Mg Tablet, 40 MG PO DAILY, (Reported) Entered as Reported by: RONNIE GUADARRAMA on 03/21/21 105 Glipizide (Glipizide) 5 Mg Tablet, 5 MG PO BID, (Reported) Entered as Reported by: STANISLAW MONTES on 12/15/20 153 Oxycodone HCl (Oxycodone HCl) 5 Mg Capsule, 5 MG PO DAILY, (Reported) Entered as Reported by: RONNIE GUADARRAMA on 03/21/21 1059 Quetiapine Fumarate (Quetiapine Fumarate) 200 Mg Tablet, 200 MG PO HS, (Reported) Entered as Reported by: STANISLAW MONTES on 12/15/20 153 Rifaximin (Xifaxan) 550 Mg Tablet, 550 MG PO BID, (Reported) Entered as Reported by: RONNIE GUADARRAMA on 03/21/21 105 Spironolactone (Spironolactone) 100 Mg Tablet, 100 MG PO BID, (Reported) Entered as Reported by: RONNIE GUADARRAMA on 03/21/21 1053 Review of Systems Review of Systems Constitutional: no symptoms reported Respiratory: no symptoms reported Cardiovascular: see HPI Gastrointestinal: see HPI Genitourinary: no symptoms reported Musculoskeletal: no symptoms reported Skin: no symptoms reported Psychiatric/Neurological: No Symptoms Reported Hematologic/Lymphatic: No Symptoms Reported Immunological/Allergic: no symptoms reported Past Hrgkkic-Cplmvl-Ekatmi Hx Patient Social History Tobacco Use?: No Use of E-Cig and/or Vaping dev: No Substance use?: Yes (PT DENIES, BUT HAS HISTORY OF OPIATE ABUSE IN PAST, PER OLD RECORDS) Alcohol Use?: No Immunizations Up To Date Tetanus Booster (TDap): Unknown Influenza Vaccine Up-to-Date: Yes; Up-to-Date First/Initial COVID19 Vaccinat: 09/06 Second COVID19 Vaccination [place]: 10/06 Third COVID19 Vaccination Date: 03/08 COVID19 Vaccine Resident Assistant Cna: RASHAD Seasonal Allergies Seasonal Allergies: No Past Medical History Surgery/Hospitalization HX: LIVER FAILURE, ESOPHAGEAL VARICES Surgeries: Yes (HIATAL HERNIA; EGD'S; PARACENTESIS) Abdominal, Gallbladder Respiratory: No Currently Using CPAP: No Currently Using BIPAP: No Cardiac: No Neurological: Yes Headaches /Migraines Reproductive Disorders: No Sexually Transmitted Disease: No HIV/AIDS: No Genitourinary: Yes Benign Prostatic Hyperpl Gastrointestinal: Yes (END STAGE LIVER FAILURE) Gastroesophageal Reflux, Liver Disease/Jaundice, Hemorrhoids, Hiatal Hernia, Gal l Bladder Disease Musculoskeletal: No Chronic Back Pain Endocrine: Yes Diabetes, Non-Insulin dep Loss of Vision: Denies Hearing Impairment: Denies Cancer: No Did You Recieve Any Treatments: No Psychosocial: Yes Anxiety, Bipolar, Depression Integumentary: No Blood Disorders: No Adverse Reaction/Blood Tranf: No Family Medical History Arthritis 19 FATHER Cancer of mouth Congenital heart disease 19 FATHER Myocardial infarction 19 FATHER Neoplasm 19 FATHER 19 MOTHER Parkinson's disease 19 FATHER Psychosocial problem 19 FATHER 19 MOTHER Heart Disease, Cancer, Psychiatric Problems, Other Conditions/Hx Physical Exam Vital Signs Vital Signs - First Documented 09/16/22 01:10 Temp 36.6 Pulse 75 Resp 20 B/P (MAP) 142/82 (102) Pulse Ox 97 O2 Delivery Room Air Capillary Refill : Less Than 3 Seconds Height, Weight, BMI Height: 6'2.00" Weight: 227lbs. 8.0oz. 103.543975qo; 28.00 BMI Method:Stated General Appearance: No Apparent Distress, WD/WN, Anxious HEENT: PERRL/EOMI, Pharynx Normal, Moist Mucous Membranes; No Pharyngeal Erythema, No Scleral Icterus (L), No Scleral Icterus (R); Other (MULTIPLE SHALLOW ULCERATIONS ON LIPS. 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 Norm as Tested, Other (ANXIOUS) Skin: Normal Color, Warm/Dry; No Ecchymosis, No Petechia, No Rash Progress/Results/Core Measures Suspected Sepsis SIRS Temperature: Pulse: 75 Respiratory Rate: 20 Laboratory Tests 09/16/22 01:18: White Blood Count 7.5 Blood Pressure 142 /82 Mean: 102 Laboratory Tests 09/16/22 01:18: Creatinine 0.87, INR Comment 1.4, Platelet Count 164, Total Bilirubin 0.9 Results/Orders Lab Results Laboratory Tests Test 09/16/22 01:18 09/16/22 02:05 Range/Units White Blood Count 7.5 4.3-11.0 10^3/uL Red Blood Count 4.19 L 4.30-5.52 10^6/uL Hemoglobin 13.7 13.3-17.7 g/dL Hematocrit 40 40-54 % Mean Corpuscular Volume 96 80-99 fL Mean Corpuscular Hemoglobin 33 25-34 pg Mean Corpuscular Hemoglobin Concent 34 32-36 g/dL Red Cell Distribution Width 14.3 10.0-14.5 % Platelet Count 164 130-400 10^3/uL Mean Platelet Volume 9.7 9.0-12.2 fL Immature Granulocyte % (Auto) 0 % Neutrophils (%) (Auto) 64 42-75 % Lymphocytes (%) (Auto) 25 12-44 % Monocytes (%) (Auto) 7 0-12 % Eosinophils (%) (Auto) 3 0-10 % Basophils (%) (Auto) 1 0-10 % Neutrophils # (Auto) 4.8 1.8-7.8 10^3/uL Lymphocytes # (Auto) 1.9 1.0-4.0 10^3/uL Monocytes # (Auto) 0.5 0.0-1.0 10^3/uL Eosinophils # (Auto) 0.2 0.0-0.3 10^3/uL Basophils # (Auto) 0.0 0.0-0.1 10^3/uL Immature Granulocyte # (Auto) 0.0 0.0-0.1 10^3/uL Prothrombin Time 18.0 H 12.2-14.7 SEC INR Comment 1.4 0.8-1.4 Activated Partial Thromboplast Time 35 24-35 SEC D-Dimer 0.24 0.00-0.49 UG/ML Sodium Level 141 135-145 MMOL/L Potassium Level 3.2 L 3.6-5.0 MMOL/L Chloride Level 108 H 98-107 MMOL/L Carbon Dioxide Level 21 21-32 MMOL/L Anion Gap 12 5-14 MMOL/L Blood Urea Nitrogen 6 L 7-18 MG/DL Creatinine 0.87 0.60-1.30 MG/DL Estimat Glomerular Filtration Rate 99 BUN/Creatinine Ratio 7 Glucose Level 93 70-105 MG/DL Calcium Level 9.1 8.5-10.1 MG/DL Corrected Calcium 9.5 8.5-10.1 MG/DL Magnesium Level 1.8 1.6-2.4 MG/DL Total Bilirubin 0.9 0.1-1.0 MG/DL Aspartate Amino Transf (AST/SGOT) 35 H 5-34 U/L Alanine Aminotransferase (ALT/SGPT) 19 0-55 U/L Alkaline Phosphatase 87 40-136 U/L Ammonia 29 11-32 UMOL/L Total Creatine Kinase 198 30-200 U/L Creatine Kinase MB 1.7 <6.6 NG/ML Myoglobin 62.4 10.0-92.0 NG/ML Troponin I < 0.028 <0.028 NG/ML B-Type Natriuretic Peptide 39.5 <100.0 PG/ML Total Protein 7.0 6.4-8.2 GM/DL Albumin 3.5 3.2-4.5 GM/DL Amylase Level 63 25-125 U/L Lipase 18 8-78 U/L Group A Streptococcus Screen NEGATIVE NEGATIVE My Orders Orders - WALTER MIRZA DO Cbc With Automated Diff (09/16/22 01:17) Magnesium (09/16/22:17) Chest 1 View, Ap/Pa Only (09/16/22:17) Ekg Tracing (09/16/22:17) Comprehensive Metabolic Panel (09/16/22:17) Myoglobin Serum (09/16/22:17) Protime With Inr (09/16/22:17) Partial Thromboplastin Time (09/16/22:17) O2 (09/16/22:17) Monitor-Rhythm Ecg Trace Only (09/16/22:17) Ed Iv/Invasive Line Start (09/16/22:17) Creatine Kinase (09/16/22:17) Creatine Kinase Mb (09/16/22:17) Lipase (09/16/22:17) Amylase (09/16/22:17) Bnp Sury (09/16/22 01:17) Nitroglycerin Ointment (Nitrobid Ointme (09/16/22 01:17) Aspirin Chewable Tablet (Baby Aspirin Ch (09/16/22 01:30) Ua Culture If Indicated (09/16/22 01:17) Pantoprazole Injection (Protonix Injecti (09/16/22 01:30) Lidocaine 2% Viscous 15 Ml (Xylocaine Vi (09/16/22 01:30) Antacid Suspension (Mylanta Suspension (09/16/22 01:30) Fibrin Degradation Products (09/16/22 01:18) Troponin I Sury (09/16/22 01:18) Ammonia (09/16/22 01:18) Ct Windy Chest/Noang Abd-Pelv W (09/16/22 02:02) Rapid Strep A Screen (09/16/22 02:13) Throat Culture Strep A Confirm (09/16/22 02:05) Iohexol Injection (Omnipaque 350 Mg/Ml 1 (09/16/22 02:45) Received Contrast (Hold Metformin- Contr (09/16/22 02:45) Ns (Ivpb) (Sodium Chloride 0.9% Ivpb Bag (09/16/22 02:45) Fentanyl Inj (Sublimaze Injection) (09/16/22 03:45) Medications Given in ED Current Medications Medications Dose Ordered Sig/Kathleen Route Start Time Stop Time Status Last Admin Dose Admin Al Hydrox/Mg Hydrox/Simethicone 30 ml ONCE ONCE PO 09/16/22 01:30 09/16/22 01:31 DC 09/16/22 01:26 30 ML Aspirin 324 mg ONCE ONCE PO 09/16/22 01:30 09/16/22 01:31 DC 09/16/22 01:26 324 MG Fentanyl Citrate 50 mcg ONCE ONCE IVP 09/16/22 03:45 09/16/22 03:46 DC 09/16/22 04:32 50 MCG Lidocaine HCl 15 ml ONCE ONCE PO 09/16/22 01:30 09/16/22 01:31 DC 09/16/22 01:26 15 ML Pantoprazole 40 mg ONCE ONCE IV 09/16/22 01:30 09/16/22 01:31 DC 09/16/22 01:26 40 MG Sodium Chloride 100 ml ONCE ONCE IV 09/16/22 02:45 09/16/22 02:51 DC 09/16/22 02:49 80 ML Vital Signs/I&O 09/16/22 01:10 Temp 36.6 Pulse 75 Resp 20 B/P (MAP) 142/82 (102) Pulse Ox 97 O2 Delivery Room Air Capillary Refill : Less Than 3 Seconds Blood Pressure Mean: 102 Progress Note : Progress Note GIVEN: -IV FLUIDS -PROTONIX -NITROPASTE -ASPIRIN -GI COCKTAIL -FENTANYL--SIGNIFICANT IMPROVEMENT IN PAIN--DOWN TO A 3/10 PT STATES SOME RELIEF WITH THE ABOVE --MOSTLY WITH GI COCKTAIL, BUT STILL IS IN PAIN--FENTANYL ORDERED PAIN HAS BECOME MORE CENTRALIZED IN EPIGASTRIC AREA JUST BELOW XYPHOID, AND RADIATES UP INTO CHEST AND THROAT. VITALS STABLE. NO DETERIORATION IN PT'S CONDITION DURING ER STAY AT DISMISSAL, DISCUSSED MEDICATIONS--PT NOW STATES THAT HE RAN OUT OF HIS OXYCODONE 7 DAYS EARLY. STATES HE HAS BEEN RUNNING OUT EARLY THE LAST FEW MONTHS. HE STATES HE WILL GET INTO DR. MIRAMONTES'S OFFICE TODAY FOR FURTHER CARE ALSO STATES THAT HE HAS "TONS" OF CARAFATE, BUT DOES NOT TAKE IT. I ADVISED HIM TO TAKE IT DISSOLVED IN SMALL AMOUNT OF WATER, TO COAT HIS THROAT AND ESOPHAGUS. HE STATES HE IS SCHEDULED TO BE AT THIS MORNING AT 8:00 AND IS TO BE THERE FOR 3 DAYS GETTING EVALUATED FOR LIVER TRANSPLANT. HE STATES HE IS CANCELLING THAT APPOINTMENT I ALSO ADVISED HIM TO FOLLOW UP WITH DR. ABREU THIS WEEK FOR FURTHER EVALUATION OF THESE SYMPTOMS REVIEWED PRIOR RECORDS, ER VISITS, ADMITS/H&P'S/CONSULTS/DISCHARGE SUMMARIES, TESTS/PROCEDURES. ECG Initial ECG Impression Date: September 16, 2022 Initial ECG Impression Time: :20 Initial ECG Rate: 76 Initial ECG Rhythm: Normal Sinus (RBBB) Initial ECG Intervals PA 158 QRS 158 QT/QTC 462/492 Initial ECG Impression: Nonspecific Changes Initial ECG Comparisson: Unchanged Comment INTERPRETED BY ME Diagnostic Imaging Comments CXR--ELEVATED RIGHT DIAPHRAGM, OTHERWISE NO ACUTE PROCESS--PENDING RADIOLOGIST REVIEW CT ANGIOGRAM CHEST / ABDOMEN-PELVIS--PER [facility] VIA FAX AT [id number] -NO P.E. OR ACUTE CHEST PATHOLOGY -CIRRHOSIS OF LIVER, NO SUSPICIOUS LIVER LESIONS -SPLENIC VARICES, CONSISTENT WITH PORTAL VENOUS HYPERTENSION Reviewed: Reviewed by Me Departure Impression Primary Impression: GERD (gastroesophageal reflux disease) Additional Impressions: Chest pain due to GERD Chronic abdominal pain Chronic prescription opiate use Cirrhosis Disposition: 01 HOME, SELF-CARE Condition: Improved Departure-Patient Inst. Decision time for Depature: 04:50 Referrals: ANN-MARIE MIRAMONTES MD (PCP/Family) Primary Care Physician Patient Instructions: Chest Pain (DC), Acid Reflux and Gastroesophageal Reflux Disease in Adults Add. Discharge Instructions: CONTINUE YOUR HOME MEDICATIONS PRESCRIBED TAKE YOUR CARAFATE--1 TABLET DISSOLVED IN SMALL AMOUNT OF WATER--AND USE 4 TIMES A DAY CLEAR LIQUIDS--WATER, BROTH, JELLO, GATORADE BRATS DIET--BANANAS, RICE, APPLESAUCE, TOAST, SALTINES FOLLOW UP WITH DR. MIRAMONTES AND YOUR GI SPECIALIST FOR FURTHER CARE FOLLOW UP WITH DR. ABREU THIS WEEK FOR FURTHER CARE FOLLOW UP WITH [facility] FOR FURTHER EVALUATION OF YOUR LIVER All discharge instructions reviewed with patient and/or family. Voiced understanding. WALTER MIRZA DO September 16, 2022 02:22
[2022-09-16] MEDS ORDERED: IOHEXOL 350 MG/ML 100 ML (OMNIPAQUE 350) VIAL IV ONE (02:45)
[2022-09-16] MEDS ORDERED: NS 100 ML (IVPB) BAG IV ONE (02:45)
[2022-09-16] MEDS ORDERED: HOLD METFORMIN - RECEIVED CONTRAST 20 ML VIAL IV SCH (02:45)
[2022-09-16] MEDS ORDERED: fentaNYL INJ 100 MCG/2 ML AMP IVP ONE (03:45)
[2022-09-16 04:58] VITALS: BP 101/69
--- NOTE | 2022-09-16 06:05 | Diagnostic Imaging Report ---
INDICATION: Chest pain. Comparison is made with prior examination of 12/17/2020. FINDINGS: There is elevation of the right hemidiaphragm. There is some right basilar subsegmental atelectasis and/or pneumonitis. Heart size is normal. There is no pneumothorax. The mediastinum is unremarkable. IMPRESSION: Elevation of the right hemidiaphragm with some right basilar subsegmental atelectasis and/or pneumonitis. No other acute cardiopulmonary abnormality. Dictated by: Dictated on workstation # [id number]
--- NOTE | 2022-09-16 06:08 | Diagnostic Imaging Report ---
INDICATION: CP, ABD PAIN, END STAGE LIVER DISEASE CTA chest, abdomen and pelvis Thin axial sections through the chest, abdomen and pelvis are obtained following intravenous contrast bolus. Multiplanar MIP images were reconstructed and reviewed. All CT scans use one or more of the following dose optimizing techniques: automated exposure control, MA and/or KvP adjustment based on patient size and exam type or iterative reconstruction. FINDINGS: There is some minimal atelectasis in the right lung base. There is no pleural or pericardial fluid. Heart size is normal. The thoracic aorta is normal in caliber without evidence of dissection. There are no filling defects seen within the pulmonary arteries to suggest pulmonary embolism. There is marked elevation of the right hemidiaphragm. No pathologically enlarged adenopathy in the chest. There are degenerative changes in the spine. IMPRESSION: No evidence of aortic aneurysm, dissection or pulmonary embolism. Marked elevation of the right hemidiaphragm with some right basilar atelectasis. Dictated by: Dictated on workstation # [id number]
== END 2022-09-16 04:58 | disposition home or self-care (01) ==
LOC: EDUNIT# 01:04 → ER 01:07
DX: K21.9 Gastro-esophageal reflux disease without esophagitis (principal); K74.60 Unspecified cirrhosis of liver; F11.90 Opioid use, unspecified, uncomplicated; G89.29 Other chronic pain
CPT/HCPCS: 36415; 71045; 71275; 74177; 80053; 82140; 82150; 82550; 82553; 83690; 83735; 83874; 83880; 84484; 85025; 85379; 85610; 85730; 87430; 93005; 93041

== ENCOUNTER → 2022-10-04 | Outpatient (CLI) | payer BC ==
--- NOTE | 2022-10-04 17:47 | Diagnostic Imaging Report ---
EXAMINATION: PA chest, single view. Right ribs, 2 views. Left ribs, 2 views. COMPARISON: Chest radiographs April 28, 2016. HISTORY: 61-year-old male, fall. Right anterior rib pain. FINDINGS: Heart size and mediastinal contours are unchanged. There is no identified pneumothorax. There is elevation of the right hemidiaphragm. There is no large pleural effusion. There is a mildly displaced fracture of the right sixth rib. IMPRESSION: 1. Mildly displaced fracture of the right sixth rib. 2. No identified acute cardiopulmonary abnormality. 3. Elevation of the right hemidiaphragm. Dictated by: Dictated on workstation # [id number]
== END ==
LOC: RAD 10:45
PROVIDERS: ATTEND Registered Nurse Critical Care Medicine
DX: S22.31XA Fracture of one rib, right side, initial encounter for closed fracture (principal); J98.6 Disorders of diaphragm; F32.9 Major depressive disorder, single episode, unspecified; J30.89 Other allergic rhinitis; R23.3 Spontaneous ecchymoses; R10.11 Right upper quadrant pain; X58.XXXA Exposure to other specified factors, initial encounter
CPT/HCPCS: 71111

== ENCOUNTER 2022-10-06 09:23 | Emergency (ER) | payer BC ==
[~2022-10-06] VITALS: Ht 185 cm; Wt 99.0 kg
[2022-10-06 09:25] VITALS: BP 126/82
--- NOTE | 2022-10-06 09:43 | ED General ---
General Chief Complaint: Chest Wall Stated Complaint: ABDOMINAL PAIN Nursing Triage Note: AMBULATED TO ROOM 05 CRYING. STATES HE FELL TWO DAYS AGO CAUSING RIGHT RIB PAIN. HAD A X-RAY DONE BUT DID NOT GET RESULTS. PT WAS PUT ON THE LIVER TRANSPLANT LIST 2 WEEKS AGO IN [place]. OUT OF OXYCODONE OF YESTERDAY. Source of Information: Patient Exam Limitations: No Limitations History of Present Illness Date Seen by Provider: October 06, 2022 Time Seen by Provider: 09:33 Initial Comments 61-year-old male with presents to the emergency department today for right chest wall pain. He fell 2 days ago. He was seen in the walk-in clinic yesterday and had an x-ray which he states has not been reported yet. I reviewed this record and it shows a mildly displaced sixth rib fracture. No pneumothorax. I independently reviewed the images and I agree with these findings. He states he takes oxycodone chronically and has been running out about a week early each month. He cannot get his medications refilled per his report. Denies any fevers or chills. No abdominal pain. No changes in bowel or bladder habits. Notably he was seen here a few days ago for epigastric and abdominal pain. He was given fentanyl during that time and recommended to follow-up with his primary doctor. He does have a history of "terminal" liver failure. He is currently being evaluated for possible liver transplant. All other systems reviewed and negative except documented per HPI. Voice recognition software was used to help create this chart Allergies and Home Medications Allergies Coded Allergies: No Known Drug Allergies (Verified , 03/28/21) Patient Home Medication List Home Medication List Reviewed: Yes Furosemide (Furosemide) 40 Mg Tablet, 40 MG PO DAILY, (Reported) Entered as Reported by: RONNIE GUADARRAMA on 03/21/21 1053 Glipizide (Glipizide) 5 Mg Tablet, 5 MG PO BID, (Reported) Entered as Reported by: STANISLAW MONTES on 12/15/20 153 Oxycodone HCl (Oxycodone HCl) 5 Mg Capsule, 5 MG PO DAILY, (Reported) Entered as Reported by: RONNIE GUADARRAMA on 03/21/21 1059 Quetiapine Fumarate (Quetiapine Fumarate) 200 Mg Tablet, 200 MG PO HS, (Repo rted) Entered as Reported by: STANISLAW MONTES on 12/15/20 1532 Rifaximin (Xifaxan) 550 Mg Tablet, 550 MG PO BID, (Reported) Entered as Reported by: RONNIE GUADARRAMA on 03/21/21 1053 Spironolactone (Spironolactone) 100 Mg Tablet, 100 MG PO BID, (Reported) Entered as Reported by: RONNIE GUADARRAMA on 03/21/21 1053 Review of Systems Review of Systems Constitutional: see HPI Past Xbhinsv-Hpulka-Xsvscm Hx Patient Social History Tobacco Use?: No Substance use?: No Alcohol Use?: No Immunizations Up To Date Tetanus Booster (TDap): Unknown First/Initial COVID19 Vaccinat: 09/06 Second COVID19 Vaccination [place]: 10/06 Third COVID19 Vaccination Date: 03/08 Seasonal Allergies Seasonal Allergies: No Past Medical History Surgery/Hospitalization HX: LIVER FAILURE, ESOPHAGEAL VARICES Surgeries: Yes (HIATAL HERNIA; EGD'S; PARACENTESIS) Abdominal, Gallbladder Respiratory: No Currently Using CPAP: No Currently Using BIPAP: No Cardiac: No Neurological: Yes Headaches /Migraines Reproductive Disorders: No Sexually Transmitted Disease: No HIV/AIDS: No Genitourinary: Yes Benign Prostatic Hyperpl Gastrointestinal: Yes (END STAGE LIVER FAILURE) Gastroesophageal Reflux, Liver Disease/Jaundice, Hemorrhoids, Hiatal Hernia, Gall Bladder Disease Musculoskeletal: No Chronic Back Pain Endocrine: Yes Diabetes, Non-Insulin dep Loss of Vision: Denies Hearing Impairment: Denies Cancer: No Did You Recieve Any Treatments: No Psychosocial: Yes Anxiety, Bipolar, Depression Integumentary: No Blood Disorders: No Adverse Reaction/Blood Tranf: No Family Medical History Arthritis 19 FATHER Cancer of mouth Congenital heart disease 19 FATHER Myocardial infarction 19 FATHER Neoplasm 19 FATHER 19 MOTHER Parkinson's disease 19 FATHER Psychosocial problem 19 FATHER 19 MOTHER Heart Disease, Cancer, Psychiatric Problems, Other Conditions/Hx Physical Exam Vital Signs Vital Signs - First Documented 10/06/22 09:25 Temp 36.3 Pulse 86 Resp 97 B/P (MAP) 126/82 (97) Pulse Ox 97 O2 Delivery Room Air Capillary Refill : Less Than 3 Seconds Height, Weight, BMI Height: 6'2.00" Weight: 227lbs. 8.0oz. 103.699573tq; 28.00 BMI Method:Stated General Appearance: WD/WN HEENT: Normal ENT Inspection, Pharynx Normal Neck: Full Range of Motion, Non Tender, Supple Respiratory: Lungs Clear, Normal Breath Sounds, No Accessory Muscle Use, Other (Tenderness palpation right lateral chest wall. No crepitus or deformity) Cardiovascular: Regular Rate, Rhythm, No Murmur, Normal Peripheral Pulses Gastrointestinal: Normal Bowel Sounds, Non Tender, Soft Extremity: Normal Capillary Refill, Normal Inspection, Non Tender, No Calf Tenderness Neurologic/Psychiatric: Alert, Oriented x3, Normal Mood/Affect Skin: Normal Color, Warm/Dry Progress/Results/Core Measures Suspected Sepsis SIRS Temperature: Pulse: 86 Respiratory Rate: 97 Blood Pressure 126 /82 Mean: 97 Results/Orders My Orders Orders - JESUS GILLIS DO Ketorolac Injection (Toradol Injection) (10/06/22 09:45) Medications Given in ED Current Medications Medications Dose Ordered Sig/Kathleen Route Start Time Stop Time Status Last Admin Dose Admin Ketorolac Tromethamine 15 mg ONCE ONCE IM 10/06/22 09:45 10/06/22 09:46 DC 10/06/22 09:46 15 MG Vital Signs/I&O 10/06/22 09:25 Temp 36.3 Pulse 86 Resp 97 B/P (MAP) 126/82 (97) Pulse Ox 97 O2 Delivery Room Air Capillary Refill : Less Than 3 Seconds Blood Pressure Mean: 97 Departure Communication (Admissions) Patient is hemodynamically stable. Independently reviewed the imaging from the other day and he has a single right-sided sixth rib fracture without displaceme nt. No pneumothorax. Is likely the cause of his pain. He is given IM Toradol here and had some slight relief with this. The problem is that the patient has used too much of his narcotic medication and cannot get a refill for several more days. He states he is out of it and ran out 7 days early. I advised I would not give him any more narcotic medication here as he seems to be using it inappropriately. I did prescribe him Toradol to go home with. He is comfortable agreeable current plan of care. He will follow-up with his primary doctor for any more pain management needs. Impression Primary Impression: Right rib fracture Qualified Codes: S22.31XA - Fracture of one rib, right side, initial encounter for closed fracture Disposition: HOME, SELF-CARE Condition: Stable Departure-Patient Inst. Referrals: ANN-MARIE MIRAMONTES MD (PCP/Family) Primary Care Physician Patient Instructions: Rib Fracture or Bruised Rib ED Add. Discharge Instructions: You were seen in the emergency department today for right-sided chest wall pain. You do have a single rib fracture on this side. There is no evidence for collapsed lung and it is not displaced. I recommend you take the Toradol as prescribed. You should only take your narcotic pain medication as prescribed, do not take extra tablets to avoid running out in the future. I am unable to provide you with narcotic pain medication at this time as the pharmacy will not fill it. Follow-up with your primary doctor for any more pain management needs. All discharge instructions reviewed with patient and/or family. Voiced understanding. Scripts Ketorolac Tromethamine (Ketorolac Tromethamine) 10 Mg Tablet 10 MG PO TID for Pain for 3 Days, #9 TAB Prov: JESUS GILLIS DO 10/06/22 JESUS GILLIS DO October 06, 2022 09:43
[2022-10-06] MEDS ORDERED: KETOROLAC 15 MG/ML VIAL IM ONE (09:45)
[2022-10-06] MEDS ORDERED: KETO10TA PO (10:13)
== END 2022-10-06 10:15 | disposition home or self-care (01) ==
LOC: EDUNIT# 09:23 → ER 09:24
DX: S22.31XA Fracture of one rib, right side, initial encounter for closed fracture (principal); K72.90 Hepatic failure, unspecified without coma; T40.2X6A Underdosing of other opioids, initial encounter; Z79.891 Long term (current) use of opiate analgesic; Z91.128 Patient's intentional underdosing of medication regimen for other reason; W19.XXXA Unspecified fall, initial encounter
CPT/HCPCS: 99284

== ENCOUNTER 2022-10-18 08:30 | Emergency (ER) | payer BC ==
[~2022-10-18] VITALS: Ht 181 cm; Wt 96.0 kg
[2022-10-18] MEDS ORDERED: OXYC20TA3 PO ×3 (08:48→11:43)
--- NOTE | 2022-10-18 08:49 | ED General ---
General Chief Complaint: Chest Wall Stated Complaint: CHEST PAIN | BROKEN RIBS Nursing Triage Note: [facility] S[facility]ST W[facility] AND RT SIDE RIB FX'S NEEDS PAIN CONTROL, HX OF LIVER DISEASE Source of Information: Patient, RN/MD Exam Limitations: No Limitations History of Present Illness Date Seen by Provider: Oct 18, 2022 Time Seen by Provider: 08:31 Initial Comments 61-year-old male with past medical history of liver failure coming in as a referral from Dr. Damian's office due to pain. The patient fell roughly week ago, has rib fractures. He has been on oxycodone 20 mg 4 times a day for years. He had to take additional ones because of the rib fractures, and he ran out of his oxycodone. He went to Dr. Damian's office to get a refill, her Internet is down and she is unable to send in the prescription. She personally contacted us to give signout regarding this. He is not having any new pain, just old pain from his known rib fractures. Otherwise denying any other acute complaints. Allergies and Home Medications Allergies Coded Allergies: No Known Drug Allergies (Verified , 03/28/21) Patient Home Medication List Home Medication List Reviewed: Yes Furosemide (Furosemide) 40 Mg Tablet, 40 MG PO DAILY, (Reported) Entered as Reported by: RONNIE GUADARRAMA on 03/21/21 1053 Glipizide (Glipizide) 5 Mg Tablet, 5 MG PO BID, (Reported) Entered as Reported by: STANISLAW MONTES on 12/15/20 1532 Ketorolac Tromethamine (Ketorolac Tromethamine) 10 Mg Tablet, 10 MG PO TID Prescribed by: JESUS GILLIS MD on 10/06/22 1013 Oxycodone HCl (Oxycodone HCl) 5 Mg Capsule, 5 MG PO DAILY, (Reported) Entered as Reported by: RONNIE GUADARRAMA on 03/21/21 1059 Oxycodone HCl (Oxycodone HCl) 20 Mg Tablet, 20 MG PO Q6H Prescribed by: CÉSAR AGUIRRE on 10/18/22 1109 Quetiapine Fumarate (Quetiapine Fumarate) 200 Mg Tablet, 200 MG PO HS, (Reported) Entered as Reported by: STANISLAW MONTES on 12/15/20 1532 Rifaximin (Xifaxan) 550 Mg Tablet, 550 MG PO BID, (Reported) Entered as Reported by: RONNIE GUADARRAMA on 03/21/21 1053 Spironolactone (Spironolactone) 100 Mg Tablet, 100 MG PO BID, (Reported) Entered as Reported by: RONNIE GUADARRAMA on 03/21/21 1053 Review of Systems Review of Systems Constitutional: No fever EENTM: no symptoms reported Respiratory: no symptoms reported Cardiovascular: no symptoms reported Gastrointestinal: no symptoms reported Genitourinary: no symptoms reported Musculoskeletal: see HPI Past Dyzzcwb-Aowpay-Qhymam Hx Patient Social History Tobacco Use?: No Substance use?: No Alcohol Use?: No Immunizations Up To Date Tetanus Booster (TDap): Unknown First/Initial COVID19 Vaccinat: 09/06 Second COVID19 Vaccination [place]: 10/06 Third COVID19 Vaccination Date: 03/08 Seasonal Allergies Seasonal Allergies: No Past Medical History Surgery/Hospitalization HX: LIVER FAILURE, ESOPHAGEAL VARICES, FX RIBS FROM FALL Surgeries: Yes (HIATAL HERNIA; EGD'S; PARACENTESIS) Abdominal, Gallbladder Respiratory: No Currently Using CPAP: No Currently Using BIPAP: No Cardiac: No Neurological: Yes Headaches /Migraines Reproductive Disorders: No Sexually Transmitted Disease: No HIV/AIDS: No Genitourinary: Yes Benign Prostatic Hyperpl Gastrointestinal: Yes (END STAGE LIVER FAILURE) Gastroesophageal Reflux, Liver Disease/Jaundice, Hemorrhoids, Hiatal Hernia, Gall Bladder Disease Musculoskeletal: No Chronic Back Pain Endocrine: Yes Diabetes, Non-Insulin dep Loss of Vision: Denies Hearing Impairment: Denies Cancer: No Did You Recieve Any Treatments: No Psychosocial: Yes Anxiety, Bipolar, Depression Integumentary: No Blood Disorders: No Adverse Reaction/Blood Tranf: No Family Medical History Arthritis 19 FATHER Cancer of mouth Congenital heart disease 19 FATHER Myocardial infarction 19 FATHER Neoplasm 19 FATHER 19 MOTHER Parkinson's disease 19 FATHER Psychosocial problem 19 FATHER 19 MOTHER Heart Disease, Cancer, Psychiatric Problems, Other Conditions/Hx Physical Exam Vital Signs Vital Signs - First Documented 10/18/22 08:34 Temp 36.5 Pulse 93 Resp 20 B/P (MAP) 125/76 (92) Pulse Ox 96 O2 Delivery Room Air Capillary Refill : Less Than 3 Seconds Height, Weight, BMI Height: 6'2.00" Weight: 227lbs. 8.0oz. 103.074788dx; 29.00 BMI Method:Stated General Appearance: WD/WN, Anxious Eyes: Bilateral Eye Normal Inspection HEENT: PERRL/EOMI, Normal ENT Inspection, Pharynx Normal Neck: Full Range of Motion, Normal Inspection, Non Tender, Supple Respiratory: Lungs Clear, Normal Breath Sounds, No Accessory Muscle Use, No Respiratory Distress, Other (Chest wall pain with palpation) Cardiovascular: Regular Rate, Rhythm, No Edema, Normal Peripheral Pulses Gastrointestinal: Normal Bowel Sounds, Non Tender, Soft; No Distended, No Guarding Back: Normal Inspection, No CVA Tenderness, No Vertebral Tenderness Extremity: Normal Capillary Refill, Normal Inspection, Normal Range of Motion, Non Tender, No Calf Tenderness, No Pedal Edema Neurologic/Psychiatric: Alert, Oriented x3, No Motor/Sensory Deficits, Normal Mood/Affect Skin: Normal Color, Warm/Dry Progress/Results/Core Measures Suspected Sepsis SIRS Temperature: Pulse: 93 Respiratory Rate: 20 Blood Pressure 125 /76 Mean: 92 Results/Orders My Orders Orders - CÉSAR AGUIRRE MD Oxycodone Immediate Rel Tablet (Oxyir Ta (10/18/22 08:45) Medications Given in ED Current Medications Medications Dose Ordered Sig/Kathleen Route Start Time Stop Time Status Last Admin Dose Admin Oxycodone HCl 20 mg ONCE ONCE PO 10/18/22 08:45 10/18/22 08:46 DC 10/18/22 08:54 20 MG Vital Signs/I&O 10/18/22 10/18/22 10/18/22 08:34 08:54 08:56 Temp 36.5 36.5 36.5 Pulse 93 93 Resp 20 20 B/P (MAP) 125/76 (92) 125/76 Pulse Ox 96 96 O2 Delivery Room Air Room Air Capillary Refill : Less Than 3 Seconds Blood Pressure Mean: 92 Progress Note : Progress Note 7-year-old male with above history coming in due to chest wall pain with known rib fractures now that he is out of his oxycodone. ABCs were intact and vitals were stable on presentation. Physical exam reassuring other than the chest wall tenderness where he has known fractures. He will be given a 20 mg oxycodone here, and after discussing the case with Dr. Damian, I will do a refill for his typical prescription for 5 days, giving him time to follow back up with her. He has no new complaints today, I believe he is otherwise stable for discharge with outpatient follow-up. He was sent home with strict return precautions. Departure Impression Primary Impression: Fracture of rib Qualified Codes: S22.31XD - Fracture of one rib, right side, subsequent encounter for fracture with routine healing Disposition: HOME, SELF-CARE Condition: Stable Departure-Patient Inst. Decision time for Depature: 09:00 Referrals: ANN-MARIE DAMIAN MD (PCP/Family) Primary Care Physician Patient Instructions: Rib Fracture or Bruised Rib ED Add. Discharge Instructions: We will send a prescription for 5 days of taking the medications as you typically would which is every 6 hours. Please follow-up with Dr. Damian for refill otherwise. Scripts Oxycodone HCl (Oxycodone HCl) 20 Mg Tablet 20 MG PO Q6H for 5 Days, #20 TAB Prov: CÉSAR AGUIRRE MD 10/18/22 Work/School Note: Work Release Form Date Seen in the Emergency Department: Oct 18, 2022 Return to Work: Oct 19, 2022 Restrictions: No Restrictions CÉSAR AGUIRRE MD Oct 18, 2022 08:49
[2022-10-18 08:56] VITALS: BP 125/76
== END 2022-10-18 08:56 | disposition home or self-care (01) ==
LOC: EDUNIT# 08:30 → ER 08:31
DX: S22.31XD Fracture of one rib, right side, subsequent encounter for fracture with routine healing (principal); Z79.1 Long term (current) use of non-steroidal anti-inflammatories (NSAID); W18.30XD Fall on same level, unspecified, subsequent encounter
CPT/HCPCS: 99285

== ENCOUNTER 2022-11-14 18:42 | Emergency (ER) | payer BC ==
[~2022-11-14] VITALS: Ht 185 cm; Wt 102.0 kg
[~2022-11-14 18:42] MED LIST changes: +OXYC20TA3 PO
[2022-11-14 18:44] VITALS: BP 128/80
[2022-11-14 19:03] LABS: BASOPHILS # (AUTO) 0.1 10^3/uL (0.0-0.1); BASOPHILS % (AUTO) 1 % (0-10); EOSINOPHILS % (AUTO) 10 % (0-10); HEMATOCRIT 37 % (40-54); HEMOGLOBIN 12.2 g/dL (13.3-17.7); LYMPHOCYTES # (AUTO) 1.1 10^3/uL (1.0-4.0); LYMPHOCYTES % (AUTO) 11 % (12-44); MEAN CORPUSCULAR HEMOGLOBIN 32 pg (25-34); MEAN CORPUSCULAR HGB CONC 33 g/dL (32-36); MEAN CORPUSCULAR VOLUME 97 fL (80-99); MEAN PLATELET VOLUME 9.1 fL (9.0-12.2); MONOCYTES # (AUTO) 0.7 10^3/uL (0.0-1.0); MONOCYTES % (AUTO) 7 % (0-12); NEUTROPHILS # (AUTO) 6.5 10^3/uL (1.8-7.8); NEUTROPHILS % (AUTO) 70 % (42-75); PLATELET COUNT 172 10^3/uL (130-400); WHITE BLOOD COUNT 9.2 10^3/uL (4.3-11.0)
--- NOTE | 2022-11-14 19:07 | ED General ---
General Chief Complaint: Chest Pain Stated Complaint: SOA/CHEST PAIN Nursing Triage Note: [facility] WITH [facility]/O SOA AND CP. PATIENT DENIES CARDIAC HX. DENIES USE OF O2. PER PATIENT SYMPTOMS STARTED FRIDAY. PATIENT AMB. TO ROOM 05 WITHOUT DIFFICULTY. PATIENT IS ALERT AND ORIENTED TO PERSON, TIME, PLACE, AND SITUATION. SPOUSE AT BEDSIDE. Source of Information: Patient Exam Limitations: No Limitations History of Present Illness Date Seen by Provider: Nov 14, 2022 Time Seen by Provider: 18:45 Initial Comments 62-year-old male presents to the ER from the [facility] walk-in clinic for low oxygen saturation. Report from the [facility] nurse practitioner was that patient stated for the last couple days his oxygen saturation has been in the 50s to 60s at home and he has been feeling short of air. He was found to be at 63% on room air upon arrival to [facility]. They placed him on 2 L of O2 via nasal cannula which brought him up to 93%. Patient was seen by his primary care provider on Friday, 11/11 and diagnosed with pneumonia. He was started on Augmentin for this. He states that this appointment was just a routine follow-up, he was not having any complaints at that time. He states that on Friday he started having intermittent midsternal chest pain and shortness of air. He reports the shortness of breath is worse when he is lying flat on his back or with exertion. He states that he has no shortness of air when resting. He reports he last had chest pain 2 hours prior to arrival, states that his pain is currently gone. He denies fevers, cough, abdominal pain. Does report some nausea, denies vomiting. Patient has nonalcoholic liver failure, he is on the transplant list with the [facility]. He is in the process of getting on the transplant list for . He also sees a doctor in [place], but the transplant will not be occurring in [place]. The transplant will either occur at or in [place]. Allergies and Home Medications Allergies Coded Allergies: No Known Drug Allergies (Verified , 03/28/21) Patient Home Medication List Home Medication List Reviewed: Yes Furosemide (Furosemide) 40 Mg Tablet, 40 MG PO DAILY, (Reported) Entered as Reported by: RONNIE GUADARRAMA on 03/21/21 1058 Glipizide (Glipizide) 5 Mg Tablet, 5 MG PO BID, (Reported) Entered as Reported by: STANISLAW MONTES on 12/15/20 1532 Ketorolac Tromethamine (Ketorolac Tromethamine) 10 Mg Tablet, 10 MG PO TID Prescribed by: JESUS GILLIS MD on 10/06/22 1013 Oxycodone HCl (Oxycodone HCl) 5 Mg Capsule, 5 MG PO DAILY, (Reported) Entered as Reported by: RONNIE GUADARRAMA on 03/21/21 1059 Oxycodone HCl (Oxycodone HCl) 20 Mg Tablet, 20 MG PO Q6H Prescribed by: CÉSAR AGUIRRE on 10/18/22 1143 Quetiapine Fumarate (Quetiapine Fumarate) 200 Mg Tablet, 200 MG PO HS, (Reported) Entered as Reported by: STANISLAW MONTES on 12/15/20 1532 Rifaximin (Xifaxan) 550 Mg Tablet, 550 MG PO BID, (Reported) Entered as Reported by: RONNIE GUADARRAMA on 03/21/21 1053 Spironolactone (Spironolactone) 100 Mg Tablet, 100 MG PO BID, (Reported) Entered as Reported by: RONNIE GUADARRAMA on 03/21/21 1053 Review of Systems Review of Systems Constitutional: see HPI Past Yhrmalp-Irsscn-Oonryg Hx Patient Social History Tobacco Use?: No Substance use?: No Alcohol Use?: No Pt feels they are or have been: No Immunizations Up To Date Tetanus Booster (TDap): Unknown First/Initial COVID19 Vaccinat: 09/06 Second COVID19 Vaccination Kolby: 10/06 Third COVID19 Vaccination Date: 03/08 Seasonal Allergies Seasonal Allergies: No Past Medical History Surgery/Hospitalization HX: NON-ALCOHOLIC LIVER FAILURE, ESOPHAGEAL VARICES, FX RIBS FROM FALL SURG. HX-GALLBLADDER, HITAL HERNIA REPAIR, CARPAL TUNNEL Surgeries: Yes (HIATAL HERNIA; EGD'S; PARACENTESIS) Abdominal, Gallbladder Respiratory: No Currently Using CPAP: No Currently Using BIPAP: No Cardiac: No Neurological: Yes Headaches /Migraines Reproductive Disorders: No Sexually Transmitted Disease: No HIV/AIDS: No Genitourinary: Yes Benign Prostatic Hyperpl Gastrointestinal: Yes (END STAGE LIVER FAILURE) Gastroesophageal Reflux, Liver Disease/Jaundice, Hemorrhoids, Hiatal Hernia, Gall Bladder Disease Musculoskeletal: No Chronic Back Pain Endocrine: Yes Diabetes, Non-Insulin dep Loss of Vision: Denies Hearing Impairment: Denies Cancer: No Did You Recieve Any Treatments: No Psychosocial: Yes Anxiety, Bipolar, Depression Integumentary: No Blood Disorders: No Adverse Reaction/Blood Tranf: No Family Medical History Arthritis 19 FATHER Cancer of mouth Congenital heart disease 19 FATHER Myocardial infarction 19 FATHER Neoplasm 19 FATHER 19 MOTHER Parkinson's disease 19 FATHER Psychosocial problem 19 FATHER 19 MOTHER Heart Disease, Cancer, Psychiatric Problems, Other Conditions/Hx Physical Exam-Suspected Sepsis Physical Exam Vital Signs Vital Signs - First Documented 11/14/22 18:44 Temp 37.7 Pulse 102 Resp 23 B/P (MAP) 128/80 (96) Pulse Ox 96 O2 Delivery Nasal Cannula O2 Flow Rate 4.00 Capillary Refill : Less Than 3 Seconds Blood Pressure Mean: 96 Height, Weight, BMI Height: 6'2.00" Weight: 227lbs. 8.0oz. 103.194086on; 29.00 BMI Method:Stated General Appearance: No Apparent Distress, WD/WN Neck: Normal Inspection, Supple Respiratory: Lungs Clear, Normal Breath Sounds, No Accessory Muscle Use, No Respiratory Distress Cardiovascular: Regular Rate, Rhythm Extremity: Normal Inspection, Normal Range of Motion, No Pedal Edema Neurologic/Psychiatric: Alert, Normal Mood/Affect Skin: normal color, warm/dry Focused Exam Lactate Level 11/14/22 18:52: Lactic Acid Level 1.31 Lactic Acid Level Progress/Results/Core Measures Suspected Sepsis SIRS Temperature: Pulse: 102 Respiratory Rate: 23 Laboratory Tests 11/14/22 18:52: White Blood Count 9.2 Blood Pressure 128 /80 Mean: 96 11/14/22 18:52: Lactic Acid Level 1.31 Laboratory Tests 11/14/22 18:52: Creatinine 0.76, INR Comment 1.4, Platelet Count 172, Total Bilirubin 1.4H Results/Orders Lab Results Laboratory Tests Test 11/14/22 18:52 11/14/22 18:58 Range/Units White Blood Count 9.2 4.3-11.0 10^3/uL Red Blood Count 3.78 L 4.30-5.52 10^6/uL Hemoglobin 12.2 L 13.3-17.7 g/dL Hematocrit 37 L 40-54 % Mean Corpuscular Volume 97 80-99 fL Mean Corpuscular Hemoglobin 32 25-34 pg Mean Corpuscular Hemoglobin Concent 33 32-36 g/dL Red Cell Distribution Width 16.7 H 10.0-14.5 % Platelet Count 172 130-400 10^3/uL Mean Platelet Volume 9.1 9.0-12.2 fL Immature Granulocyte % (Auto) 0 % Neutrophils (%) (Auto) 70 42-75 % Lymphocytes (%) (Auto) 11 L 12-44 % Monocytes (%) (Auto) 7 0-12 % Eosinophils (%) (Auto) 10 0-10 % Basophils (%) (Auto) 1 0-10 % Neutrophils # (Auto) 6.5 1.8-7.8 10^3/uL Lymphocytes # (Auto) 1.1 1.0-4.0 10^3/uL Monocytes # (Auto) 0.7 0.0-1.0 10^3/uL Eosinophils # (Auto) 1.0 H 0.0-0.3 10^3/uL Basophils # (Auto) 0.1 0.0-0.1 10^3/uL Immature Granulocyte # (Auto) 0.0 0.0-0.1 10^3/uL Prothrombin Time 17.2 H 12.2-14.7 SEC INR Comment 1.4 0.8-1.4 Activated Partial Thromboplast Time 32 24-35 SEC Sodium Level 138 135-145 MMOL/L Potassium Level 3.9 3.6-5.0 MMOL/L Chloride Level 103 98-107 MMOL/L Carbon Dioxide Level 25 21-32 MMOL/L Anion Gap 10 5-14 MMOL/L Blood Urea Nitrogen 6 L 7-18 MG/DL Creatinine 0.76 0.60-1.30 MG/DL Estimat Glomerular Filtration Rate 102 BUN/Creatinine Ratio 8 Glucose Level 101 70-105 MG/DL Lactic Acid Level 1.31 0.50-2.00 MMOL/L Calcium Level 9.3 8.5-10.1 MG/DL Corrected Calcium 9.9 8.5-10.1 MG/DL Total Bilirubin 1.4 H 0.1-1.0 MG/DL Aspartate Amino Transf (AST/SGOT) 47 H 5-34 U/L Alanine Aminotransferase (ALT/SGPT) 23 0-55 U/L Alkaline Phosphatase 115 40-136 U/L Troponin I < 0.028 <0.028 NG/ML B-Type Natriuretic Peptide 392.7 H <100.0 PG/ML Total Protein 6.6 6.4-8.2 GM/DL Albumin 3.3 3.2-4.5 GM/DL SARS-CoV-2 RNA (RT-PCR) Not Detected Not Detecte My Orders Orders - NITA TSE APRN Cbc With Automated Diff (11/14/22 18:45) Comprehensive Metabolic Panel (11/14/22 18:45) Blood Culture (11/14/22 18:45) Sputum Culture (11/14/22 18:45) Protime With Inr (11/14/22 18:45) Partial Thromboplastin Time (11/14/22 18:45) Chest 1 View, Ap/Pa Only (11/14/22 18:45) Ed Iv/Invasive Line Start (11/14/22 18:45) Vital Signs Adult Sepsis Patie Q15M (11/14/22 18:45) O2 (11/14/22 18:45) Remove Rings In Anticipation O (11/14/22 18:45) Lactic Acid Analyzer (11/14/22 18:45) Covid 19 Inhouse Test (11/14/22 18:45) Ekg Tracing (11/14/22 18:48) Troponin I Sury (11/14/22 18:55) Ns Iv 1000 Ml (Sodium Chloride 0.9%) (11/14/22 19:15) Bnp [place]ount (11/14/22 19:20) Azithromycin Injection (Zithromax Inject (11/14/22 20:45) Ceftriaxone Iv/Im (Rocephin Iv/Im) (11/14/22 20:45) Medications Given in ED Vital Signs/I&O 11/15/22 00:00 Intake Total 1000 ml Balance 1000 ml Capillary Refill : Less Than 3 Seconds Blood Pressure Mean: 96 Progress Note : Progress Note Patient seen and evaluated, resting comfortably in bed, no acute distress. His oxygen saturation was in the 70s upon arrival, quickly increased with oxygen via nasal cannula. Septic work-up initiated including CBC, CMP, coags, troponin, lactic acid, blood cultures x2, sputum culture, chest x-ray, EKG. I initially ordered 1 L of fluid, but then canceled it due to possibility of fluid overload. 2031 Labs and imaging reviewed. CBC shows decreased RBC 3.78, decreased hemoglobin 12.2, decrease hematocrit 37. Normal white blood cells. CMP shows slightly elevated total bilirubin 1.4, slightly elevated AST 47. Troponin negative. BNP slightly elevated at 392.7. Lactic acid normal. Coags show slightly elevated PT 17.2, INR 1.4, APTT 32. COVID-negative. Chest x-ray shows elevation of right hemodiaphragm with some right basilar subsegmental atelectasis and/or pneumonitis, there may be some degree of central pulmonary venous congestion. I call Dr. Nicholas, hospitalist, regarding admission. She does not want to admit due to patient having liver failure and being on the transplant list. 2033 I called transfer center to begin the process for transfer. 2046 Results discussed with patient and . Patient does not want to go to all the way to . Patient is not yet on the transplant list for , he is only on the transplant list for [place]. Patient asking if he can go to [place] instead. I have called [facility], left message, waiting for phone call back. 2057 will not accept because patient is not on their transplant list. 2145 I spoke with [facility] in [place], Dr. Duarte, hospitalist, accepted patient for transfer. Patient and updated on plan of care. ECG Initial ECG Impression Date: Nov 14, 2022 Initial ECG Impression Time: 18:53 Initial ECG Rate: 90 Initial ECG Rhythm: Normal Sinus Initial ECG Intervals: QRS (Elevated at 154) Initial ECG Impression: Nonspecific Changes (Right bundle branch block) Initial ECG Comparisson: Unchanged Comment Right bundle branch block, this was seen on previous EKG. No significant Q waves, ST elevation, or T wave inversion. Diagnostic Imaging Diagonstic Imaging: Xray Plain Films/CT/US/NM/MRI: chest Comments [facility], [place] NAME: CATARINO OSPINA [facility] REC#: [id number] PT STATUS: REG ER : 1960 PHYSICIAN: NITA TSE APRN ADMIT DATE: 11/14/22/ER Signed Date of Exam:11/14/22 CHEST 1 VIEW, AP/PA ONLY INDICATION: Shortness of breath. COMPARISON: Prior examination from 09/16/2022. FINDINGS: There is elevation of the right hemidiaphragm. There is some right basilar subsegmental atelectasis and/or pneumonitis. Heart size is upper limits of normal. Lungs are otherwise clear. There is no pneumothorax. The mediastinum is unremarkable. IMPRESSION: Elevation of right hemidiaphragm with some right basilar subsegmental atelectasis and/or pneumonitis. There may be some degree of central pulmonary venous congestion. Dictated by: Dictated on workstation # [id number] Dict: 11/14/221910 Trans: 11/14/221926 [facility] [phone] Interpreted by: EUGENIO LAW MD Electronically signed by: EUGENIO LAW MD 11/14/221926 Departure Impression Primary Impression: Hypoxia Additional Impressions: Pneumonia Chronic liver failure Qualified Codes: K72.10 - Chronic hepatic failure without coma Pulmonary vascular congestion Disposition: XFER SHT-TRM HOSP Condition: Stable Transfer Transfer Reason: Exceeds level of care Time Spoke to Accepting Phy: 21:[address] Duarte, hospitalist, at [facility] in [place] accepted patient for transfer. Transfer Time: 21:55 Transfer Facility: [facility] Method of Transfer: EMS Departure-Patient Inst. Referrals: ANN-MARIE MIRAMONTES MD (PCP/Family) Primary Care Physician Copy Copies To 1: ANN-MARIE MIRAMONTES MD, BRITTANY R APRN Nov 14, 2022 19:07
[2022-11-14 19:12] LABS: INR 1.4 (0.8-1.4); PROTHROMBIN TIME PATIENT 17.2 SEC (12.2-14.7)
--- NOTE | 2022-11-14 19:14 | Diagnostic Imaging Report ---
INDICATION: Shortness of breath. COMPARISON: Prior examination from 09/16/2022. FINDINGS: There is elevation of the right hemidiaphragm. There is some right basilar subsegmental atelectasis and/or pneumonitis. Heart size is upper limits of normal. Lungs are otherwise clear. There is no pneumothorax. The mediastinum is unremarkable. IMPRESSION: Elevation of right hemidiaphragm with some right basilar subsegmental atelectasis and/or pneumonitis. There may be some degree of central pulmonary venous congestion. Dictated by: Dictated on workstation # [id number]
[2022-11-14] MEDS ORDERED: NS IV 1000 ML 1,000 ML IV SCH (19:15)
[2022-11-14 19:56] LABS: ALBUMIN 3.3 GM/DL (3.2-4.5)
[2022-11-14 19:57] LABS: CHLORIDE 103 MMOL/L (98-107); POTASSIUM 3.9 MMOL/L (3.6-5.0); SODIUM 138 MMOL/L (135-145)
[2022-11-14 19:58] LABS: CALCIUM 9.3 MG/DL (8.5-10.1)
[2022-11-14 19:59] LABS: GLUCOSE 101 MG/DL (70-105); TOTAL PROTEIN 6.6 GM/DL (6.4-8.2)
[2022-11-14 20:01] LABS: BILIRUBIN,TOTAL 1.4 MG/DL (0.1-1.0)
[2022-11-14 20:02] LABS: ALKALINE PHOSPHATASE 115 U/L (40-136)
[2022-11-14 20:03] LABS: CREATININE SERUM 0.76 MG/DL (0.60-1.30); GFR ESTIMATED 102
[2022-11-14 20:04] LABS: BUN/CREATININE RATIO 8
[2022-11-14 20:05] LABS: CARBON DIOXIDE 25 MMOL/L (21-32)
[2022-11-14 20:06] LABS: ALANINE AMINOTRANSFERASE 23 U/L (0-55)
[2022-11-14] MEDS ORDERED: AZITHROMYCIN INJECTION 500 MG in NS (IVPB) 250 ML IV ONE (20:45)
[2022-11-14] MEDS ORDERED: cefTRIAXone IV/IM 1,000 MG in NS (IVPB) 50 ML IV ONE (20:45)
== END 2022-11-14 23:35 | disposition short-term general hospital (02) ==
LOC: EDUNIT# 18:42 → ER 18:44
DX: J18.9 Pneumonia, unspecified organism (principal); R09.02 Hypoxemia; K72.10 Chronic hepatic failure without coma; E80.7 Disorder of bilirubin metabolism, unspecified; J98.11 Atelectasis; J98.6 Disorders of diaphragm; R71.0 Precipitous drop in hematocrit; R71.8 Other abnormality of red blood cells; R79.89 Other specified abnormal findings of blood chemistry; Z98.890 Other specified postprocedural states; Z20.822 Contact with and (suspected) exposure to COVID-19
CPT/HCPCS: 36415; 71045; 80053; 83605; 83880; 84484; 85025; 85610; 85730; 87040; 87636; 93005

== ENCOUNTER → 2022-12-19 | Outpatient (CLI) | payer BC ==
[2022-12-19 12:10] LABS: HEMATOCRIT 35 % (40-54); HEMOGLOBIN 11.5 g/dL (13.3-17.7); MEAN CORPUSCULAR HEMOGLOBIN 31 pg (25-34); MEAN CORPUSCULAR HGB CONC 33 g/dL (32-36); MEAN CORPUSCULAR VOLUME 94 fL (80-99); MEAN PLATELET VOLUME 9.3 fL (9.0-12.2); PLATELET COUNT 244 10^3/uL (130-400); WHITE BLOOD COUNT 15.8 10^3/uL (4.3-11.0)
--- NOTE | 2022-12-19 12:19 | Diagnostic Imaging Report ---
Indication: Pneumonia Correlated with the chest and rib radiographs 10/04/2022. Findings: Increased 5 lobe interstitial infiltrates developed with progressive elevation of the right diaphragm. The heart size itself is stable. No overt vascular congestion. No effusion or pneumothorax. Impression: Worsened 5 lobe interstitial infiltrates and progressive elevation of the right diaphragm. Dictated by: Dictated on workstation # [id number]
== END ==
LOC: RAD 11:47
PROVIDERS: ATTEND Family Medicine
DX: J18.9 Pneumonia, unspecified organism (principal)
CPT/HCPCS: 36415; 71046; 85027

== ENCOUNTER 2022-12-31 13:25 | Emergency (ER) | payer BC ==
[~2022-12-31] VITALS: Ht 185 cm; Wt 95.2 kg
[2022-12-31 13:42] LABS: BASOPHILS % (AUTO) 0 % (0-10); EOSINOPHILS # (AUTO) 0.2 10^3/uL (0.0-0.3); EOSINOPHILS % (AUTO) 1 % (0-10); HEMATOCRIT 41 % (40-54); HEMOGLOBIN 13.2 g/dL (13.3-17.7); LYMPHOCYTES # (AUTO) 2.2 10^3/uL (1.0-4.0); LYMPHOCYTES % (AUTO) 13 % (12-44); MEAN CORPUSCULAR HEMOGLOBIN 31 pg (25-34); MEAN CORPUSCULAR HGB CONC 32 g/dL (32-36); MEAN CORPUSCULAR VOLUME 94 fL (80-99); MEAN PLATELET VOLUME 9.4 fL (9.0-12.2); MONOCYTES # (AUTO) 1.3 10^3/uL (0.0-1.0); MONOCYTES % (AUTO) 8 % (0-12); NEUTROPHILS # (AUTO) 12.6 10^3/uL (1.8-7.8); NEUTROPHILS % (AUTO) 77 % (42-75); PLATELET COUNT 222 10^3/uL (130-400); WHITE BLOOD COUNT 16.4 10^3/uL (4.3-11.0)
[2022-12-31] MEDS ORDERED: morphine INJ 10 MG/ML 1ML (SYR OR VIAL) IVP STA (13:46)
[2022-12-31 13:57] LABS: ALBUMIN 3.6 GM/DL (3.2-4.5); POTASSIUM 3.3 MMOL/L (3.6-5.0)
[2022-12-31 13:58] LABS: CALCIUM 9.4 MG/DL (8.5-10.1)
[2022-12-31 14:00] LABS: ANISOCYTOSIS SLIGHT; BAND NEUTROPHILS 0 %; BASOPHILS % (MANUAL) 0 %; EOSINOPHILS % (MANUAL) 2 %; LYMPHOCYTES % (MANUAL) 11 %; MONOCYTES % (MANUAL) 6 %; NEUTROPHILS % (MANUAL) 81 %; TOTAL PROTEIN 7.4 GM/DL (6.4-8.2)
[2022-12-31 14:01] LABS: BILIRUBIN,TOTAL 1.3 MG/DL (0.1-1.0)
--- NOTE | 2022-12-31 14:01 | ED Chest Pain ---
General Chief Complaint: Respiratory Problems Stated Complaint: SOB Nursing Triage Note: Patient ambulatory to room 03 c/o sob. Patient was just released from [place] 1 week ago for pneumonia. On 3L o2 at home for the past month. "Can't breathe, I feel like i'm dying" hx of liver disease. Patient states he has chronic chest pain "from my liver disease." Source: patient, other (PCP clinic report) Exam Limitations: no limitations History of Present Illness Date Seen by Provider: Dec 31, 2022 Time Seen by Provider: 13:26 Allergies and Home Medications Allergies Coded Allergies: No Known Drug Allergies (Verified , 03/28/21) Patient Home Medication List Furosemide (Furosemide) 40 Mg Tablet, 40 MG PO DAILY, (Reported) Entered as Reported by: RONNIE GUADARRAMA on 03/21/21 1053 Glipizide (Glipizide) 5 Mg Tablet, 5 MG PO BID, (Reported) Entered as Reported by: STANISLAW MONTES on 12/15/20 1532 Ketorolac Tromethamine (Ketorolac Tromethamine) 10 Mg Tablet, 10 MG PO TID Prescribed by: JESUS GILLIS MD on 10/06/22 1013 Oxycodone HCl (Oxycodone HCl) 5 Mg Capsule, 5 MG PO DAILY, (Reported) Entered as Reported by: RONNIE GUADARRAMA on 03/21/21 1059 Oxycodone HCl (Oxycodone HCl) 20 Mg Tablet, 20 MG PO Q6H Prescribed by: CÉSAR AGUIRRE on 10/18/22 1143 Quetiapine Fumarate (Quetiapine Fumarate) 200 Mg Tablet, 200 MG PO HS, (Reported) Entered as Reported by: STANISLAW MONTES on 12/15/20 1532 Rifaximin (Xifaxan) 550 Mg Tablet, 550 MG PO BID, (Reported) Entered as Reported by: RONNIE GUADARRAMA on 03/21/21 1053 Spironolactone (Spironolactone) 100 Mg Tablet, 100 MG PO BID, (Reported) Entered as Reported by: RONNIE GUADARRAMA on 03/21/21 1053 Past Olwtipj-Nlyyye-Ziimdb Hx Patient Social History Tobacco Use?: No Substance use?: No Alcohol Use?: No Immunizations Up To Date Tetanus Booster (TDap): Unknown First/Initial COVID19 Vaccinat: 09/06 Second COVID19 Vaccination [place]by: 10/06 Third COVID19 Vaccination Date: 03/08 Seasonal Allergies Seasonal Allergies: No Past Medical History Surgery/Hospitalization HX: NON-ALCOHOLIC LIVER FAILURE, ESOPHAGEAL VARICES, FX RIBS FROM FALL SURG. HX-GALLBLADDER, HITAL HERNIA REPAIR, CARPAL TUNNEL Surgeries: Yes (HIATAL HERNIA; EGD'S; PARACENTESIS) Abdominal, Gallbladder Respiratory: No Currently Using CPAP: No Currently Using BIPAP: No Cardiac: No Neurological: Yes Headaches /Migraines Reproductive Disorders: No Sexually Transmitted Disease: No HIV/AIDS: No Genitourinary: Yes Benign Prostatic Hyperpl Gastrointestinal: Yes (END STAGE LIVER FAILURE) Gastroesophageal Reflux, Liver Disease/Jaundice, Hemorrhoids, Hiatal Hernia, Gall Bladder Disease Musculoskeletal: No Chronic Back Pain Endocrine: Yes Diabetes, Non-Insulin dep Loss of Vision: Denies Hearing Impairment: Denies Cancer: No Did You Recieve Any Treatments: No Psychosocial: Yes Anxiety, Bipolar, Depression Integumentary: No Blood Disorders: No Adverse Reaction/Blood Tranf: No Family Medical History Arthritis 19 FATHER Cancer of mouth Congenital heart disease 19 FATHER Myocardial infarction 19 FATHER Neoplasm 19 FATHER 19 MOTHER Parkinson's disease 19 FATHER Psychosocial problem 19 FATHER 19 MOTHER Heart Disease, Cancer, Psychiatric Problems, Other Conditions/Hx Physical Exam Vital Signs Vital Signs - First Documented Capillary Refill : Less Than 3 Seconds Height, Weight, BMI Height: 6'2.00" Weight: 227lbs. 8.0oz. 103.513885tq; 27.00 BMI Method:Stated Progress/Results/Core Measures Results/Orders Lab Results Laboratory Tests Test 12/31/22 13:35 12/31/22 16:05 Range/Units White Blood Count 16.4 H 4.3-11.0 10^3/uL Red Blood Count 4.31 4.30-5.52 10^6/uL Hemoglobin 13.2 L 13.3-17.7 g/dL Hematocrit 41 40-54 % Mean Corpuscular Volume 94 80-99 fL Mean Corpuscular Hemoglobin 31 25-34 pg Mean Corpuscular Hemoglobin Concent 32 32-36 g/dL Red Cell Distribution Width 16.3 H 10.0-14.5 % Platelet Count 222 130-400 10^3/uL Mean Platelet Volume 9.4 9.0-12.2 fL Immature Granulocyte % (Auto) 1 % Neutrophils (%) (Auto) 77 H 42-75 % Lymphocytes (%) (Auto) 13 12-44 % Monocytes (%) (Auto) 8 0-12 % Eosinophils (%) (Auto) 1 0-10 % Basophils (%) (Auto) 0 0-10 % Neutrophils # (Auto) 12.6 H 1.8-7.8 10^3/uL Lymphocytes # (Auto) 2.2 1.0-4.0 10^3/uL Monocytes # (Auto) 1.3 H 0.0-1.0 10^3/uL Eosinophils # (Auto) 0.2 0.0-0.3 10^3/uL Basophils # (Auto) 0.0 0.0-0.1 10^3/uL Immature Granulocyte # (Auto) 0.1 0.0-0.1 10^3/uL Neutrophils % (Manual) 81 % Lymphocytes % (Manual) 11 % Monocytes % (Manual) 6 % Eosinophils % (Manual) 2 % Basophils % (Manual) 0 % Band Neutrophils 0 % Anisocytosis SLIGHT Erythrocyte Sedimentation Rate 48 H 0-30 MM/HR Prothrombin Time 15.5 H 12.2-14.7 SEC INR Comment 1.2 0.8-1.4 Activated Partial Thromboplast Time 30 24-35 SEC D-Dimer 0.35 0.00-0.49 UG/ML Sodium Level 137 135-145 MMOL/L Potassium Level 3.3 L 3.6-5.0 MMOL/L Chloride Level 106 98-107 MMOL/L Carbon Dioxide Level 19 L 21-32 MMOL/L Anion Gap 12 5-14 MMOL/L Blood Urea Nitrogen 10 7-18 MG/DL Creatinine 0.77 0.60-1.30 MG/DL Estimat Glomerular Filtration Rate 102 BUN/Creatinine Ratio 13 Glucose Level 105 70-105 MG/DL Calcium Level 9.4 8.5-10.1 MG/DL Corrected Calcium 9.7 8.5-10.1 MG/DL Magnesium Level 2.4 1.6-2.4 MG/DL Total Bilirubin 1.3 H 0.1-1.0 MG/DL Aspartate Amino Transf (AST/SGOT) 35 H 5-34 U/L Alanine Aminotransferase (ALT/SGPT) 34 0-55 U/L Alkaline Phosphatase 126 40-136 U/L Ammonia 42 H 11-32 UMOL/L Myoglobin 36.4 10.0-92.0 NG/ML Troponin I < 0.028 <0.028 NG/ML C-Reactive Protein High Sensitivity 0.23 0.00-0.50 MG/DL Total Protein 7.4 6.4-8.2 GM/DL Albumin 3.6 3.2-4.5 GM/DL Urine Color YELLOW Urine Clarity CLEAR Urine pH 7.0 5-9 Urine Specific [place] 1.020 1.016-1.022 Urine Protein TRACE H NEGATIVE Urine Glucose (UA) NEGATIVE NEGATIVE Urine Ketones NEGATIVE NEGATIVE Urine Nitrite NEGATIVE NEGATIVE Urine Bilirubin NEGATIVE NEGATIVE Urine Urobilinogen 0.2 < = 1.0 MG/DL Urine Leukocyte Esterase NEGATIVE NEGATIVE Urine RBC (Auto) NEGATIVE NEGATIVE Urine RBC RARE /HPF Urine WBC RARE /HPF Urine Squamous Epithelial Cells NONE /HPF Urine Crystals PRESENT H /LPF Urine Amorphous Sediment MOD [place] PHOSPHATE H /LPF Urine Bacteria TRACE /HPF Urine Casts PRESENT /LPF Urine Hyaline Casts 25-50 H /LPF Urine Mucus LARGE H /LPF Urine Culture Indicated NO My Orders Orders - KIERAN ESPARZA MD Ammonia (12/31/22 13:33) Cbc With Automated Diff (12/31/22 13:33) Comprehensive Metabolic Panel (12/31/22 13:33) Magnesium (12/31/22 13:33) Ua Culture If Indicated (12/31/22 13:33) Ed Iv/Invasive Line Start (12/31/22 13:33) Manual Differential (12/31/22 13:35) Morphine Injection (Morphine Injection (12/31/22 13:46) Chest 1 View, Ap/Pa Only (12/31/22 13:47) Ekg Tracing (12/31/22 13:47) Myoglobin Serum (12/31/22 13:47) Protime With Inr (12/31/22 13:47) Partial Thromboplastin Time (12/31/22 13:47) O2 (12/31/22 13:47) Monitor-Rhythm Ecg Trace Only (12/31/22 13:47) Lipid Panel (01/01/23 06:00) Troponin I Sury (12/31/22 13:47) Hs C Reactive Protein (12/31/22 13:47) Erythrocyte Sedimentation Rate (12/31/22 13:47) Fibrin Degradation Products (12/31/22 14:18) Lorazepam Tablet (Lorazepam Tablet) (12/31/22 14:37) Oxycodone Immediate Rel Tablet (Oxycodon (12/31/22 14:45) Ct Windy Chest/Noang Abd-Pelv W (12/31/22 15:11) Iohexol Injection (Omnipaque 350 Mg/Ml 1 (12/31/22 15:15) Di Iv Start (Assessment) .IV start (12/31/22 15:14) Received Contrast (Hold Metformin- Contr (12/31/22 15:15) Ns (Ivpb) 100 Ml (Sodium Chloride 0.9% 1 (12/31/22 15:15) Oxycodone Extended Release Tab (Oxycodon (12/31/22 16:45) Medications Given in ED Current Medications Medications Dose Ordered Sig/Kathleen Route Start Time Stop Time Status Last Admin Dose Admin Iohexol 100 ml ONCE ONCE IV 12/31/22 15:15 12/31/22 15:16 DC 12/31/22 15:27 79 ML Oxycodone HCl 10 mg ONCE ONCE PO 12/31/22 14:45 12/31/22 14:46 DC 12/31/22 14:46 10 MG Sodium Chloride 100 ml ONCE ONCE IV 12/31/22 15:15 12/31/22 15:16 DC 12/31/22 15:27 80 ML Vital Signs/I&O 12/31/22 12/31/22 12/31/22 13:28 13:28 13:28 Temp 36.7 Pulse 83 Resp 24 B/P (MAP) 117/67 (84) Pulse Ox 96 96 O2 Delivery Nasal Cannula Nasal Cannula Nasal Cannula O2 Flow Rate 5.00 5.00 5.00 5.00 Blood Pressure Mean: 84 Departure Impression Primary Impression: Chronic chest pain Additional Impressions: Pneumonia Qualified Codes: J18.9 - Pneumonia, unspecified organism Opioid dependence Qualified Codes: F11.29 - Opioid dependence with unspecified opioid-induced disorder Disposition: 01 HOME, SELF-CARE Condition: Improved Departure-Patient Inst. Decision time for Depature: 16:49 Referrals: ANN-MARIE MIRAMONTES MD (PCP/Family) Primary Care Physician Patient Instructions: CHRONIC PAIN, Pneumonia in adults Add. Discharge Instructions: Seek renewal of your pain medication prescriptions with your primary care provider. Continue your other prescription medications as previously directed. Return to care if you have worsening symptoms despite following these instructions. 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 Review CT findings with your mailhouse operator as follow-up imaging is recommended to document stability of your lungs. All discharge instructions reviewed with patient and/or family. Voiced understanding. Copy Copies To 1: ANN-MARIE MIRAMONTES MD, JOSHUA T MD Dec 31, 2022 14:01
[2022-12-31 14:03] LABS: CREATININE SERUM 0.77 MG/DL (0.60-1.30)
[2022-12-31 14:06] LABS: MAGNESIUM 2.4 MG/DL (1.6-2.4)
[2022-12-31 14:08] LABS: INR 1.2 (0.8-1.4); PROTHROMBIN TIME PATIENT 15.5 SEC (12.2-14.7)
--- NOTE | 2022-12-31 14:29 | Diagnostic Imaging Report ---
CHEST 1 VIEW, AP/PA ONLY INDICATION: Chest pain. COMPARISON: 12/19/2022. FINDINGS: Stable asymmetric elevation of the right hemidiaphragm. Patchy bilateral pulmonary opacities are unchanged. No pleural effusion or pneumothorax. Normal heart size. IMPRESSION: 1. Stable patchy bilateral pulmonary opacities. Dictated by: Dictated on workstation # [id number]
[2022-12-31] MEDS ORDERED: LORazepam 0.5 MG TABLET PO STA (14:37)
[2022-12-31] MEDS ORDERED: oxyCODONE IMMEDIATE RELEASE 5 MG TABLET PO ONE (14:45)
[2022-12-31] MEDS ORDERED: IOHEXOL 350 MG/ML 100 ML (OMNIPAQUE 350) VIAL IV ONE (15:15)
[2022-12-31] MEDS ORDERED: HOLD METFORMIN - RECEIVED CONTRAST 20 ML VIAL IV SCH (15:15)
[2022-12-31] MEDS ORDERED: NS 100 ML (IVPB) BAG IV ONE (15:15)
--- NOTE | 2022-12-31 15:54 | Diagnostic Imaging Report ---
INDICATION: Chest pain, upper abdominal pain, cirrhosis CTA chest, abdomen and pelvis Thin axial sections through the chest, abdomen and pelvis are obtained following intravenous contrast bolus. Multiplanar MIP images were reconstructed and reviewed. All CT scans use one or more of the following dose optimizing techniques: automated exposure control, MA and/or KvP adjustment based on patient size and exam type or iterative reconstruction. COMPARISON: 12/05/2022 and 09/16/2022 FINDINGS: No pulmonary emboli. Normal caliber thoracic aorta without dissection. There is no pericardial effusion. No mediastinal or hilar lymphadenopathy. Thyroid is normal. No axillary lymphadenopathy. No abnormality of the trachea. Multifocal groundglass with septal thickening has associated areas of increased volume loss when compared to prior examination. These favor sequelae of prior severe infection/inflammation throughout the lung. No suspicious osseous lesions in the chest. No free intraperitoneal air or fluid. No loculated fluid collection to indicate abscess. Nodular liver is unchanged and compatible with known cirrhosis. No focal hepatic lesion. The main portal vein remains patent. The spleen is normal in size without focal abnormality. Pancreas is normal. No adrenal mass. Left upper quadrant perisplenic varicosities are unchanged. No renal mass or obstructive uropathy. The urinary bladder is normally filled. Prostate is unremarkable. No pericolonic inflammatory change or bowel obstruction. The stomach is decompressed, limiting assessment. Normal caliber abdominal aorta is without dissection. Normal appendix. No abdominal or pelvic lymphadenopathy. No acute osseous abnormality in the pelvis or lumbar spine. IMPRESSION: 1. No pulmonary emboli or acute aortic syndrome. 2. Increased volume loss associated with areas of groundglass and septal thickening in both lungs favors a developing scar associated with prior severe infection/inflammation. Followup CT chest in 3-6 months could be considered to assess for the ultimate degree of fibrosis that develops. 3. No acute abnormality in the abdomen. Dictated by: Dictated on workstation # [id number]
[2022-12-31 16:28] LABS: AMORPHOUS SEDIMENT,UR MOD AMOR PHOSPHATE /LPF; BACTERIA,URINE TRACE /HPF; BILIRUBIN,URINE NEGATIVE (NEGATIVE); CLARITY,URINE CLEAR; COLOR,URINE YELLOW; GLUCOSE, URINE (UA) NEGATIVE (NEGATIVE); HYALINE CASTS, URINE 25-50 /LPF; KETONES,URINE NEGATIVE (NEGATIVE); LEUKOCYTE ESTERASE ,URINE NEGATIVE (NEGATIVE); NITRITE,URINE NEGATIVE (NEGATIVE); PROTEIN,URINE TRACE (NEGATIVE); RBC,URINE RARE /HPF; WBC,URINE RARE /HPF
[2022-12-31] MEDS ORDERED: OXYCODONE 40 MG PO ONE (16:45)
[2022-12-31 17:15] VITALS: BP 119/71
== END 2022-12-31 17:15 | disposition home or self-care (01) ==
LOC: EDUNIT# 13:25 → ER 13:26
DX: J18.9 Pneumonia, unspecified organism (principal); R07.9 Chest pain, unspecified; G89.29 Other chronic pain; F11.20 Opioid dependence, uncomplicated; Z99.81 Dependence on supplemental oxygen
CPT/HCPCS: 36415; 71045; 71275; 74177; 80053; 81000; 82140; 83735; 83874; 84484; 85007; 85027; 85379; 85610; 85652; 85730; 86141; 93005; 93041

== ENCOUNTER 2023-01-04 11:42 | Emergency (ER) | payer BC ==
[~2023-01-04] VITALS: Ht 185 cm; Wt 95.2 kg
--- NOTE | 2023-01-04 11:50 | ED Respiratory ---
General Chief Complaint: Respiratory Problems Stated Complaint: SOA History of Present Illness Date Seen by Provider: Jan 04, 2023 Time Seen by Provider: 11:50 Initial Comments 62-year-old male presents with shortness of breath. Reports he has been having issues for least a month or better with repeated issues of pneumonia. Patient has been out of the hospital approximately a week and a half after extended stay at [facility] along with previous day for about a week at [place] with approximately 1 week in between. Patient was brought in by EMS. He received DuoNeb and steroid in route. Reports that he thinks maybe has some trouble with his oxygen machine machine and his oxygen was in the 60s at home and then he used a tank and turn follow-up prior. He reports he is only been on oxygen for about a week since he been out of [facility]. No fevers, chills, nausea or vomiting reported. Allergies and Home Medications Allergies Coded Allergies: No Known Drug Allergies (Verified , 03/28/21) Patient Home Medication List Home Medication List Reviewed: Yes Furosemide (Furosemide) 40 Mg Tablet, 40 MG PO DAILY, (Reported) Entered as Reported by: RONNIE GUADARRAMA on 03/21/21 1053 Glipizide (Glipizide) 5 Mg Tablet, 5 MG PO BID, (Reported) Entered as Reported by: STANISLAW MONTES on 12/15/20 1532 Ketorolac Tromethamine (Ketorolac Tromethamine) 10 Mg Tablet, 10 MG PO TID Prescribed by: JESUS GILLIS MD on 10/06/22 1013 Oxycodone HCl (Oxycodone HCl) 5 Mg Capsule, 5 MG PO DAILY, (Reported) Entered as Reported by: RONNIE GUADARRAMA on 03/21/21 1059 Oxycodone HCl (Oxycodone HCl) 20 Mg Tablet, 20 MG PO Q6H Prescribed by: CÉSAR AGUIRRE on 10/18/22 1143 Quetiapine Fumarate (Quetiapine Fumarate) 200 Mg Tablet, 200 MG PO HS, (Reporte d) Entered as Reported by: STANISLAW MONTES on 12/15/20 1532 Rifaximin (Xifaxan) 550 Mg Tablet, 550 MG PO BID, (Reported) Entered as Reported by: RONNIE GUADARRAMA on 03/21/21 1053 Spironolactone (Spironolactone) 100 Mg Tablet, 100 MG PO BID, (Reported) Entered as Reported by: RONNIE GUADARRAMA on 03/21/21 1053 Review of Systems Review of Systems Constitutional: No chills, No fever Respiratory: see HPI, short of breath Cardiovascular: no symptoms reported Gastrointestinal: no symptoms reported Genitourinary: no symptoms reported Musculoskeletal: no symptoms reported Skin: no symptoms reported Psychiatric/Neurological: No Symptoms Reported Hematologic/Lymphatic: No Symptoms Reported Past Iizlvzz-Lsrhcp-Svrkgc Hx Immunizations Up To Date Tetanus Booster (TDap): Unknown First/Initial COVID19 Vaccinat: 09/06 Second COVID19 Vaccination [place]: 10/06 Third COVID19 Vaccination Date: 03/08 Seasonal Allergies Seasonal Allergies: No Past Medical History Surgery/Hospitalization HX: NON-ALCOHOLIC LIVER FAILURE, ESOPHAGEAL VARICES, FX RIBS FROM FALL SURG. HX-GALLBLADDER, HITAL HERNIA REPAIR, CARPAL TUNNEL Surgeries: Yes (HIATAL HERNIA; EGD'S; PARACENTESIS) Abdominal, Gallbladder Respiratory: No Currently Using CPAP: No Currently Using BIPAP: No Cardiac: No Neurological: Yes Headaches /Migraines Reproductive Disorders: No Sexually Transmitted Disease: No HIV/AIDS: No Genitourinary: Yes Benign Prostatic Hyperpl Gastrointestinal: Yes (END STAGE LIVER FAILURE) Gastroesophageal Reflux, Liver Disease/Jaundice, Hemorrhoids, Hiatal Hernia, Gall Bladder Disease Musculoskeletal: No Chronic Back Pain Endocrine: Yes Diabetes, Non-Insulin dep Loss of Vision: Denies Hearing Impairment: Denies Cancer: No Did You Recieve Any Treatments: No Psychosocial: Yes Anxiety, Bipolar, Depression Integumentary: No Blood Disorders: No Adverse Reaction/Blood Tranf: No Family Medical History Arthritis 19 FATHER Cancer of mouth Congenital heart disease 19 FATHER Myocardial infarction 19 FATHER Neoplasm 19 FATHER 19 MOTHER Parkinson's disease 19 FATHER Psychosocial problem 19 FATHER 19 MOTHER Heart Disease, Cancer, Psychiatric Problems, Other Conditions/Hx Physical Exam Vital Signs - First Documented 01/04/23 11:50 Temp 37.6 Pulse 114 Resp 16 B/P (MAP) 127/77 (94) Pulse Ox 93 O2 Delivery Nasal Cannula O2 Flow Rate 10.00 Capillary Refill : Height: 6'2.00" Weight: 227lbs. 8.0oz. 103.364091my; 27.00 BMI Method:Stated General Appearance: mild distress Respiratory: decreased breath sounds, plerual rub Cardiovascular: normal peripheral pulses, regular rate, rhythm, tachycardia Gastrointestinal: non tender, soft Neurologic/Psychiatric: alert, normal mood/affect, oriented x 3 Skin: normal color, warm/dry Progress/Results/Core Measures Suspected Sepsis SIRS Temperature: Pulse: Respiratory Rate: Laboratory Tests 01/04/23 11:47: White Blood Count 16.8H Blood Pressure / Mean: Laboratory Tests 01/04/23 11:47: Creatinine 0.85, INR Comment 1.4, Platelet Count 125L, Total Bilirubin 1.3H Results/Orders Lab Results Laboratory Tests Test 01/04/23 11:47 01/04/23 12:25 01/04/23 12:38 Range/Units White Blood Count 16.8 H 4.3-11.0 10^3/uL Red Blood Count 3.16 L 4.30-5.52 10^6/uL Hemoglobin 9.7 #L 13.3-17.7 g/dL Hematocrit 30 L 40-54 % Mean Corpuscular Volume 96 80-99 fL Mean Corpuscular Hemoglobin 31 25-34 pg Mean Corpuscular Hemoglobin Concent 32 32-36 g/dL Red Cell Distribution Width 17.0 H 10.0-14.5 % Platelet Count 125 L 130-400 10^3/uL Mean Platelet Volume 10.5 9.0-12.2 fL Immature Granulocyte % (Auto) 2 % Neutrophils (%) (Auto) 83 H 42-75 % Lymphocytes (%) (Auto) 8 L 12-44 % Monocytes (%) (Auto) 6 0-12 % Eosinophils (%) (Auto) 2 0-10 % Basophils (%) (Auto) 0 0-10 % Neutrophils # (Auto) 13.9 H 1.8-7.8 10^3/uL Lymphocytes # (Auto) 1.4 1.0-4.0 10^3/uL Monocytes # (Auto) 0.9 0.0-1.0 10^3/uL Eosinophils # (Auto) 0.3 0.0-0.3 10^3/uL Basophils # (Auto) 0.0 0.0-0.1 10^3/uL Immature Granulocyte # (Auto) 0.3 H 0.0-0.1 10^3/uL Neutrophils % (Manual) 81 % Lymphocytes % (Manual) 12 % Monocytes % (Manual) 2 % Eosinophils % (Manual) 3 % Basophils % (Manual) 2 % Band Neutrophils 0 % Percent Immature Platelet Fraction 3.6 0.0-7.6 % Polychromasia SLIGHT Anisocytosis SLIGHT Prothrombin Time 17.3 H 12.2-14.7 SEC INR Comment 1.4 0.8-1.4 Activated Partial Thromboplast Time 28 24-35 SEC D-Dimer 0.40 0.00-0.49 UG/ML Sodium Level 135 135-145 MMOL/L Potassium Level 3.3 L 3.6-5.0 MMOL/L Chloride Level 102 98-107 MMOL/L Carbon Dioxide Level 23 21-32 MMOL/L Anion Gap 10 5-14 MMOL/L Blood Urea Nitrogen 14 7-18 MG/DL Creatinine 0.85 0.60-1.30 MG/DL Estimat Glomerular Filtration Rate 99 BUN/Creatinine Ratio 16 Glucose Level 134 H 70-105 MG/DL Calcium Level 8.6 8.5-10.1 MG/DL Corrected Calcium 9.3 8.5-10.1 MG/DL Magnesium Level 2.1 1.6-2.4 MG/DL Total Bilirubin 1.3 H 0.1-1.0 MG/DL Aspartate Amino Transf (AST/SGOT) 66 H 5-34 U/L Alanine Aminotransferase (ALT/SGPT) 29 0-55 U/L Alkaline Phosphatase 143 H 40-136 U/L Troponin I < 0.028 <0.028 NG/ML B-Type Natriuretic Peptide 235.9 H <100.0 PG/ML Total Protein 6.2 L 6.4-8.2 GM/DL Albumin 3.1 L 3.2-4.5 GM/DL Blood Gas Puncture Site LEFT RADIAL Blood Gas Patient Temperature 37.1 Arterial Blood pH 7.40 7.37-7.43 Arterial Blood Partial Pressure CO2 42 35-45 MMHG Arterial Blood Partial Pressure O2 93 79-93 MMHG Arterial Blood HCO3 25 23-27 MMOL/L Arterial Blood Total CO2 26.4 21.0-31.0 MMOL/L Arterial Blood Oxygen Saturation 98 94-100 % Arterial Blood Base Excess 0.8 -2.5-2.5 MMOL/L Leo Test YES-POS Blood Gas Ventilator Setting NO Blood Gas Inspired Oxygen 15L Influenza Type A (RT-PCR) Not Detected Not Detecte Influenza Type B (RT-PCR) Not Detected Not Detecte SARS-CoV-2 RNA (RT-PCR) Not Detected Not Detecte My Orders Orders - SULTANA,NERY L DO Arterial Blood Gas (01/04/23 11:50) Bnp [place] (01/04/23 11:50) Cbc With Automated Diff (01/04/23 11:50) Comprehensive Metabolic Panel (01/04/23 11:50) Magnesium (01/04/23 11:50) Troponin I Sury (01/04/23 11:50) Influenza A And B By Pcr (01/04/23 11:50) Covid 19 Inhouse Test (01/04/23 11:50) Chest 1 View, Ap/Pa Only (01/04/23 11:50) Fibrin Degradation Products (01/04/23 11:53) Ipratropium/Albuterol Inh Soln (Ipratrop (01/04/23 12:00) Svn Small Volume Nebulizer (01/04/23 11:56) Ipratropium/Albuterol Inh Soln (Ipratrop (01/04/23 11:57) Manual Differential (01/04/23 11:47) Furosemide Injection (Furosemide Injec (01/04/23 12:45) Protime With Inr (01/04/23 12:50) Partial Thromboplastin Time (01/04/23 12:50) Medications Given in ED Current Medications Medications Dose Ordered Sig/Kathleen Route Start Time Stop Time Status Last Admin Dose Admin Albuterol/ Ipratropium 3 ml STK-MED ONCE .ROUTE 01/04/23 11:57 01/04/23 12:00 DC 01/04/23 12:08 3 ML Furosemide 40 mg ONCE ONCE IVP 01/04/23 12:45 01/04/23 12:46 DC 01/04/23 12:51 40 MG Vital Signs/I&O 01/04/23 01/04/23 01/04/23 01/04/23 11:50 11:50 12:05 14:47 Temp 37.6 Pulse 114 100 Resp 16 24 B/P (MAP) 127/77 (94) 122/71 Pulse Ox 93 96 93 O2 Delivery Nasal Cannula High Flow N/C Non Rebreather O2 Flow Rate 10.00 15.00 15.00 15.00 Capillary Refill : Progress Note : Progress Note Patient's diagnostic studies were ordered reviewed and interpreted by me. Patient's white count is elevated but this is consistent with his previous labs. Patient however does have approximately 3-1/2 g drop in his hemoglobin in the last 4 days. Patient denies any black tarry stool, abdominal pain, hemoptysis. He is not on any blood thinners at this time. Patient's previous labs were reviewed and other dudley seem near his baseline. Patient's chest x-ray was ordered reviewed which shows a bilateral pulmonary edema that is worse than x- ray on 12/31/2022. Final interpretation per radiology report. Patient's CTA from 12/31/2022 was reviewed and shows no acute intra-abdominal findings or lung findings but did show likely scarring due to his previous infections. Patient's BNP was slightly more elevated than previously. Due to patient's worsening pulmonary edema, significant pulmonary history with multiple hospitalizations over the last 2 months along with his acute drop in his hemoglobin he will be transferred to [facility] due to their specialty care. Just care with Dr. Marcos at [facility] who accepted him for admission to the ICU. Patient's O2 saturation remained in the low 90s on 15 L nonrebreather however he felt much more comfortable. Was given DuoNeb in addition to the DuoNeb and steroids he received in route along with an additional 40 mg IV Lasix. He was transferred via EMS in stable condition. Critical Care Note Critical Care Total Time (minutes) 30 minutes critical care time. Departure Impression Primary Impression: Pulmonary edema Qualified Codes: J81.0 - Acute pulmonary edema Additional Impressions: Anemia Qualified Codes: D64.9 - Anemia, unspecified Hypoxia Disposition: XFER SHT-TRM HOSP Condition: Stable Transfer Transfer Reason: Exceeds level of care Time Spoke to Accepting Phy: 13:03 Transfer Progress Notes Pt accepted by Dr Marcos Transfer Facility: [facility] Method of Transfer: EMS Departure-Patient Inst. Referrals: ANN-MARIE MIRAMONTES MD (PCP/Family) Primary Care Physician NERY SULTANA DO Jan 04, 2023 11:50
[2023-01-04] MEDS ORDERED: RT-Ipratropium/Albuterol NEB 3 ML VIAL ONE (11:57)
[2023-01-04 12:00] LABS: MEAN PLATELET VOLUME 10.5 fL (9.0-12.2); MONOCYTES % (AUTO) 6 % (0-12); NEUTROPHILS % (AUTO) 83 % (42-75)
[2023-01-04] MEDS ORDERED: RT-Ipratropium/Albuterol NEB 3 ML VIAL INH ONE (12:00)
[2023-01-04 12:02] LABS: BASOPHILS % (AUTO) 0 % (0-10); EOSINOPHILS # (AUTO) 0.3 10^3/uL (0.0-0.3); EOSINOPHILS % (AUTO) 2 % (0-10); HEMATOCRIT 30 % (40-54); HEMOGLOBIN 9.7 g/dL (13.3-17.7); LYMPHOCYTES # (AUTO) 1.4 10^3/uL (1.0-4.0); LYMPHOCYTES % (AUTO) 8 % (12-44); MEAN CORPUSCULAR HEMOGLOBIN 31 pg (25-34); MEAN CORPUSCULAR HGB CONC 32 g/dL (32-36); MEAN CORPUSCULAR VOLUME 96 fL (80-99); MONOCYTES # (AUTO) 0.9 10^3/uL (0.0-1.0); NEUTROPHILS # (AUTO) 13.9 10^3/uL (1.8-7.8); PLATELET COUNT 125 10^3/uL (130-400); WHITE BLOOD COUNT 16.8 10^3/uL (4.3-11.0)
[2023-01-04 12:07] LABS: ALBUMIN 3.1 GM/DL (3.2-4.5); CHLORIDE 102 MMOL/L (98-107); POTASSIUM 3.3 MMOL/L (3.6-5.0); SODIUM 135 MMOL/L (135-145)
[2023-01-04 12:08] LABS: CALCIUM 8.6 MG/DL (8.5-10.1)
[2023-01-04 12:09] LABS: GLUCOSE 134 MG/DL (70-105); TOTAL PROTEIN 6.2 GM/DL (6.4-8.2)
[2023-01-04 12:10] LABS: CARBON DIOXIDE 23 MMOL/L (21-32)
[2023-01-04 12:11] LABS: BILIRUBIN,TOTAL 1.3 MG/DL (0.1-1.0)
[2023-01-04 12:13] LABS: ALKALINE PHOSPHATASE 143 U/L (40-136); CREATININE SERUM 0.85 MG/DL (0.60-1.30); GFR ESTIMATED 99
[2023-01-04 12:14] LABS: BUN/CREATININE RATIO 16
[2023-01-04 12:16] LABS: ALANINE AMINOTRANSFERASE 29 U/L (0-55); MAGNESIUM 2.1 MG/DL (1.6-2.4)
[2023-01-04 12:23] LABS: ANISOCYTOSIS SLIGHT; BAND NEUTROPHILS 0 %; BASOPHILS % (MANUAL) 2 %; EOSINOPHILS % (MANUAL) 3 %; LYMPHOCYTES % (MANUAL) 12 %; MONOCYTES % (MANUAL) 2 %; NEUTROPHILS % (MANUAL) 81 %; POLYCHROMASIA SLIGHT
--- NOTE | 2023-01-04 12:26 | Diagnostic Imaging Report ---
EXAMINATION: Chest 1 view HISTORY: Short of breath COMPARISON: 12/31/2022 FINDINGS: There are worsening moderate to severe bilateral airspace opacities. Right hemidiaphragm is elevated. No pneumothorax. Heart is enlarged. IMPRESSION: 1. Worsening moderate to severe bilateral airspace opacities favored to represent edema. Dictated by: Dictated on workstation # [id number]
[2023-01-04 12:33] LABS: ABG BASE EXCESS 0.8 MMOL/L (-2.5-2.5); ABG OXYGEN SATURATION 98 % (94-100); ABG PCO2 42 MMHG (35-45); ABG PO2 93 MMHG (79-93); ABG TCO2 26.4 MMOL/L (21.0-31.0)
[2023-01-04 12:34] LABS: ALLENS TEST YES-POS; INSPIRED O2 15L; PATIENT TEMP 37.1; VENTILATOR NO
[2023-01-04] MEDS ORDERED: FUROSEMIDE INJECTION 40 MG/4 ML VIAL IVP ONE (12:45)
[2023-01-04 13:02] LABS: INR 1.4 (0.8-1.4); PROTHROMBIN TIME PATIENT 17.3 SEC (12.2-14.7)
[2023-01-04 14:47] VITALS: BP 122/71
== END 2023-01-04 14:47 | disposition short-term general hospital (02) ==
LOC: EDUNIT# 11:42 → ER 11:43
DX: J81.1 Chronic pulmonary edema (principal); D64.9 Anemia, unspecified; R09.02 Hypoxemia; Z20.822 Contact with and (suspected) exposure to COVID-19
CPT/HCPCS: 36415; 71045; 80053; 82805; 83735; 83880; 84484; 85007; 85027; 85379; 85610; 85730; 87636; 94640